=== PATIENT | female | born 1955 | race Caucasian/White ===

== ENCOUNTER → 2017-01-06 | Outpatient (CLI) | payer OTHER | END | disposition home or self-care (01) | LOC: LABWHC1 16:12 | PROVIDERS: ATTEND Internal Medicine Endocrinology, Diabetes & Metabolism | DX: E03.9 Hypothyroidism, unspecified (principal) | CPT/HCPCS: 36415; 82043; 82306; 84443 ==

== ENCOUNTER → 2017-01-18 | Outpatient (CLI) | payer OTHER ==
--- NOTE | 2017-01-18 07:57 | US ---
EXAMINATION TYPE: US abdomen complete DATE OF EXAM: 01/18/2017 7:41 AM COMPARISON: None. CLINICAL HISTORY: 61-year-old female R10.9 Abd Pain. Complaining of epigastric pain radiating to ches t; GERD; hiatal Hernia TECHNIQUE: Multiple sonographic images of the abdomen were obtained. FINDINGS: Liver Length: 13.2 cm Gallbladder Wall: 0.2 cm CBD: 0.4 cm Spleen: 10.8 cm Right Kidney: 9.8 x 5.4 x 4.7 cm Left Kidney: 10.1 x 5.1 x 6.5 cm Pancreas: No gross abnormality. Liver: Normal size without any focal lesion seen. There is slight increased echogenicity. Also, ther e is a 4 mm echogenic focus within the left hepatic lobe that may represent a small calcified granulo ma. Gallbladder: No abnormal gallbladder distention, wall thickening, pericholecystic fluid, or shadowing calculi. Evidence for sonographic Castellanos's sign: No CBD: Within normal limits. Spleen: Within normal limits. Right Kidney: No hydronephrosis. Left Kidney: No hydronephrosis. Upper IVC: wnl Abd Aorta: wnl IMPRESSION: Slight increased echogenicity of the liver may reflect mild fatty infiltration. Correlate with LFTs, lipid profile, and patient risk factors. Otherwise, no specific abnormality seen.
== END | disposition home or self-care (01) ==
LOC: RADUSWWP 07:05
PROVIDERS: ATTEND Family Medicine
DX: R10.9 Unspecified abdominal pain (principal)
CPT/HCPCS: 76700

== ENCOUNTER → 2017-03-11 | Outpatient (CLI) | payer OTHER | END | disposition home or self-care (01) | LOC: LABWHC1 15:55 | PROVIDERS: ATTEND Internal Medicine Endocrinology, Diabetes & Metabolism | DX: E03.8 Other specified hypothyroidism (principal) | CPT/HCPCS: 36415; 84443 ==

== ENCOUNTER → 2017-09-06 | Outpatient (CLI) | payer OTHER | END | disposition home or self-care (01) | LOC: LABWHC1 16:34 | PROVIDERS: ATTEND Internal Medicine Endocrinology, Diabetes & Metabolism | DX: E03.8 Other specified hypothyroidism (principal) | CPT/HCPCS: 36415; 84443 ==

== ENCOUNTER → 2017-09-09 | Outpatient (CLI) | payer OTHER ==
[2017-09-09 14:39] LABS: CH 31.2; CHCM 33.8; HDW 2.41; HGB 13.9 gm/dL (11.4-16.0); MCH 30.6 pg (25.0-35.0); MCV 92.7 fL (80.0-100.0); Mean Platelet Volume 7.7; RBC 4.53 m/uL (3.80-5.40); RDW 13.7 % (11.5-15.5); WBC 4.8 k/uL (3.8-10.6)
[2017-09-09 20:12] LABS: Prolactin 5.2 ng/mL (2.8-29.2)
[2017-09-09 22:43] LABS: ACTH 19.5 pg/mL (0.00-45.99)
== END | disposition home or self-care (01) ==
LOC: LABWHC1 14:17
PROVIDERS: ATTEND Internal Medicine Endocrinology, Diabetes & Metabolism
DX: E03.8 Other specified hypothyroidism (principal); E55.9 Vitamin D deficiency, unspecified; R53.83 Other fatigue
CPT/HCPCS: 36415; 82024; 82306; 82533; 82607; 84146; 84443; 85027

== ENCOUNTER → 2017-12-01 | Outpatient (CLI) | payer BC ==
[2017-12-01 16:49] LABS: HCT 39.9 % (34.0-46.0); HGB 13.3 gm/dL (11.4-16.0); MCH 29.8 pg (25.0-35.0); MCHC 33.2 g/dL (31.0-37.0); MCV 89.8 fL (80.0-100.0); Platelet Count 385 k/uL (150-450); RBC 4.44 m/uL (3.80-5.40); RDW 12.6 % (11.5-15.5); WBC 6.8 k/uL (3.8-10.6)
[2017-12-02 01:34] LABS: Vitamin D 25 Hydroxy 33.8 ng/mL (30.0-100.0)
[2017-12-02 02:34] LABS: ACTH 15.2 pg/mL (0.00-45.99)
== END | disposition home or self-care (01) ==
LOC: LABWHC1 16:23
PROVIDERS: ATTEND Internal Medicine Endocrinology, Diabetes & Metabolism
DX: E03.8 Other specified hypothyroidism (principal); R53.83 Other fatigue; E55.9 Vitamin D deficiency, unspecified
CPT/HCPCS: 36415; 82024; 82306; 82533; 82607; 84146; 84443; 85027

== ENCOUNTER → 2018-06-10 | Outpatient (CLI) | payer BC ==
[2018-06-10 10:39] LABS: Basophils # (A) 0.1 k/uL (0-0.2); Basophils % (A) 1 %; Eosinophils # (A) 0.1 k/uL (0-0.7); Eosinophils % (A) 2 %; HCT 40.9 % (34.0-46.0); HGB 13.7 gm/dL (11.4-16.0); Lymphocytes # (A) 1.1 k/uL (1.0-4.8); Lymphocytes % (A) 30 %; MCH 30.5 pg (25.0-35.0); MCHC 33.6 g/dL (31.0-37.0); MCV 90.7 fL (80.0-100.0); Mean Platelet Volume 7.1; Monocytes # (A) 0.3 k/uL (0-1.0); Monocytes % (A) 8 %; Neutrophils # (A) 2.2 k/uL (1.3-7.7); Neutrophils % (A) 57 %; Platelet Count 250 k/uL (150-450); RBC 4.51 m/uL (3.80-5.40); RDW 12.6 % (11.5-15.5); WBC 3.9 k/uL (3.8-10.6)
[2018-06-10 10:58] LABS: ALT 26 U/L (9-52); AST 18 U/L (14-36); Albumin 4.1 g/dL (3.5-5.0); Alkaline Phosphatase 64 U/L (38-126); Anion Gap 6 mmol/L; Blood Urea Nitrogen 19 mg/dL (7-17); Calcium 9.6 mg/dL (8.4-10.2); Carbon Dioxide 28 mmol/L (22-30); Chloride 108 mmol/L (98-107); Cholesterol 217 mg/dL (<200); Glucose 86 mg/dL (74-99); HDL Cholesterol 74 mg/dL (40-60); LDL Cholesterol,Calculated 129 mg/dL (0-99); Potassium 4.3 mmol/L (3.5-5.1); Sodium 142 mmol/L (137-145); Total Bilirubin 0.4 mg/dL (0.2-1.3); Total Protein 6.5 g/dL (6.3-8.2); Triglycerides 72 mg/dL (<150)
[2018-06-10 11:13] LABS: T4, Free (Free Thyroxine) 1.36 ng/dL (0.78-2.19)
[2018-06-12 23:15] LABS: Testosterone, Free, LC/MS/MS 0.4 pg/mL (0.2-5.0)
== END | disposition home or self-care (01) ==
LOC: LABWHC1 10:14
PROVIDERS: ATTEND Internal Medicine Endocrinology, Diabetes & Metabolism
DX: Z00.00 Encounter for general adult medical examination without abnormal findings (principal); Z11.59 Encounter for screening for other viral diseases; E03.8 Other specified hypothyroidism; E89.41 Symptomatic postprocedural ovarian failure
CPT/HCPCS: 36415; 80053; 80061; 82040; 82672; 84270; 84403; 84439; 84443; 85025; 86803

== ENCOUNTER → 2018-12-13 | Outpatient (CLI) | payer BC | END | disposition home or self-care (01) | LOC: LABWHC1 15:15 | PROVIDERS: ATTEND Internal Medicine Endocrinology, Diabetes & Metabolism | DX: E55.9 Vitamin D deficiency, unspecified (principal); E03.8 Other specified hypothyroidism | CPT/HCPCS: 36415; 82306; 84443 ==

== ENCOUNTER → 2019-01-27 | Outpatient (CLI) | payer BC | END | disposition home or self-care (01) | LOC: LABWHC1 16:34 | PROVIDERS: ATTEND Internal Medicine Endocrinology, Diabetes & Metabolism | DX: E03.8 Other specified hypothyroidism (principal); E55.9 Vitamin D deficiency, unspecified | CPT/HCPCS: 36415; 82306; 84443 ==

== ENCOUNTER → 2019-06-23 | Outpatient (CLI) | payer BC ==
--- NOTE | 2019-06-27 14:13 | MM ---
Reason for exam: screening (asymptomatic). Last mammogram was performed 2 years and 8 months ago. History: Patient is postmenopausal. Family history of premenopausal breast cancer in grandmother and premenopausal breast cancer in aunt at age 35. Benign excisional biopsy of the left breast, 1992. MG Screening Mammo w CAD Bilateral CC and MLO view(s) were taken. Prior study comparison: October 20, 2016, bilateral MG screening mammo w CAD. July 02, 2014, bilateral MG screening mammo w CAD. The breast tissue is heterogeneously dense. This may lower the sensitivity of mammography. No significant new finding when compared with prior studies. ASSESSMENT: Benign, BI-RAD 2 RECOMMENDATION: Routine screening mammogram of both breasts in 1 year.
== END | disposition home or self-care (01) ==
LOC: RADMAMWWP 12:09
PROVIDERS: ATTEND Family Medicine
DX: Z12.31 Encounter for screening mammogram for malignant neoplasm of breast (principal)
CPT/HCPCS: 77067

== ENCOUNTER → 2019-10-06 | Outpatient (CLI) | payer OTHER, BC ==
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
== END | disposition home or self-care (01) ==
LOC: RADCTMAIN 14:26
PROVIDERS: ATTEND Orthopaedic Surgery
DX: M16.12 Unilateral primary osteoarthritis, left hip (principal); M16.4 Bilateral post-traumatic osteoarthritis of hip
CPT/HCPCS: 72192

== ENCOUNTER → 2020-12-18 | Outpatient (CLI) | payer BC ==
[2020-12-18 12:05] LABS: Basophils # (A) 0.1 k/uL (0-0.2); Basophils % (A) 2 %; Eosinophils # (A) 0.1 k/uL (0-0.7); Eosinophils % (A) 3 %; HCT 40.6 % (34.0-46.0); HGB 13.9 gm/dL (11.4-16.0); Lymphocytes # (A) 1.1 k/uL (1.0-4.8); Lymphocytes % (A) 25 %; MCH 29.8 pg (25.0-35.0); MCHC 34.2 g/dL (31.0-37.0); Mean Platelet Volume 7.1; Monocytes # (A) 0.4 k/uL (0-1.0); Monocytes % (A) 9 %; Neutrophils # (A) 2.5 k/uL (1.3-7.7); Neutrophils % (A) 59 %; Platelet Count 251 k/uL (150-450); RBC 4.66 m/uL (3.80-5.40); RDW 13.4 % (11.5-15.5); WBC 4.3 k/uL (3.8-10.6)
[2020-12-18 22:50] LABS: African American GFR (CKD) 90.9 (60.0-200.0); Albumin 4.4 g/dL (3.80-4.90); Albumin/Globulin Ratio 2.59 (1.60-3.17); Anion Gap 7.6 mmol/L (4.00-12.00); BUN/Creat Ratio 23.75 Ratio (12.00-20.00); Calcium 9.7 mg/dL (8.7-10.3); Carbon Dioxide 27.4 mmol/L (21.6-31.8); Chol/HDL Ratio 3.17; Globulin 1.7 g/dL (1.6-3.3); LDL Cholesterol,Calculated 120.2 mg/dL (0.0-131.0); Non-African American GFR(CKD) 78.5 (60.0-200.0); Potassium 4.5 mmol/L (3.5-5.5); Total Bilirubin 0.5 mg/dL (0.3-1.2); Total Protein 6.1 g/dL (6.2-8.2); VLDL Calculation 16.8 mg/dL (5.00-40.00)
[2020-12-18 22:56] LABS: T4, Free (Free Thyroxine) 1.4 ng/dL (0.80-1.80)
== END | disposition home or self-care (01) ==
LOC: LABWHC1 10:52
PROVIDERS: ATTEND Nurse Practitioner Adult Health
DX: Z00.00 Encounter for general adult medical examination without abnormal findings (principal); Z11.59 Encounter for screening for other viral diseases; E03.9 Hypothyroidism, unspecified
CPT/HCPCS: 36415; 80053; 80061; 84439; 84443; 84481; 85025; 86803

== ENCOUNTER → 2021-01-29 | Outpatient (CLI) | payer BC ==
[2021-01-30 01:00] LABS: T4, Free (Free Thyroxine) 1.4 ng/dL (0.80-1.80)
== END | disposition home or self-care (01) ==
LOC: LABWHC1 13:31
PROVIDERS: ATTEND Family Medicine
DX: E03.9 Hypothyroidism, unspecified (principal)
CPT/HCPCS: 36415; 84439; 84443; 84481

== ENCOUNTER → 2021-10-08 | Outpatient (CLI) | payer BC ==
[2021-10-08 12:47] LABS: HCT 38.8 % (34.0-46.0); HGB 13.1 gm/dL (11.4-16.0); MCH 30.9 pg (25.0-35.0); MCHC 33.9 g/dL (31.0-37.0); MCV 91.3 fL (80.0-100.0); Mean Platelet Volume 7.8; Platelet Count 257 k/uL (150-450); RBC 4.25 m/uL (3.80-5.40); RDW 12.8 % (11.5-15.5); WBC 4.5 k/uL (3.8-10.6)
== END | disposition home or self-care (01) ==
LOC: LABWHC1 11:42
PROVIDERS: ATTEND Surgery
DX: Z01.812 Encounter for preprocedural laboratory examination (principal); K40.90 Unilateral inguinal hernia, without obstruction or gangrene, not specified as recurrent
CPT/HCPCS: 36415; 85027

== ENCOUNTER 2021-10-13 12:10 | Day surgery (SDC) | payer BC ==
[2021-10-08 15:22] VITALS: BMI 21.6
[~2021-10-13 12:10] MED LIST: ACETAMINOPHEN TAB 500 MG TAB PO PRN; DEXAMETHASONE SOD PHOSPHATE 4 MG/ML 1 ML VIAL IV ONE; HEPARIN SODIUM,PORCINE/PF 5,000 UNIT/0.5 ML SYRINGE SQ PRN; HYDROmorphone 0.5 MG/0.5 ML SYRINGE IVP PRN; LACTATED RINGERS 1,000 ML IV SCH; MIDAZOLAM 2 MG/2 ML VIAL IV PRN; SCOPOLAMINE 1.5MG/72HR PATCH TRANSDERM ONE
[2021-10-13] MEDS ORDERED: LIDOCAINE 1% (10MG/ML) FOR IV START INTRADERMA ONE (13:40)
[2021-10-13] MEDS: ONDANSETRON 4 MG/2 ML VIAL IVP ONE ×2 (13:44→18:30)
[2021-10-13 13:59] LABS: Glucose,Whole Blood 67 mg/dL (75-99)
[2021-10-13 14:43] LABS: Glucose,Whole Blood 76 mg/dL (75-99)
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
[2021-10-13] MEDS ORDERED: MIDAZOLAM 2 MG/2 ML VIAL IV ONE (15:20)
[2021-10-13] MEDS ORDERED: KETOROLAC 15 MG/ML 1 ML VIAL ONE (15:45)
[2021-10-13] MEDS ORDERED: fentaNYL (PF) 50 MCG/ML 2 ML AMP ONE (15:45)
[2021-10-13] MEDS ORDERED: GLYCOPYRROLATE 0.2 MG/ML 2 ML VIAL ONE (15:45)
[2021-10-13] MEDS ORDERED: ROCURONIUM 10 MG/ML (5 ML VIAL) IV ONE (15:45)
[2021-10-13] MEDS ORDERED: NEOSTIGMINE 1 MG/ML 10 ML VIAL ONE (15:45)
[2021-10-13] MEDS ORDERED: HYDROmorphone (PF) 1 MG/ML ONE (15:45)
[2021-10-13] MEDS ORDERED: MIDAZOLAM 2 MG/2 ML VIAL ONE (15:45)
[2021-10-13] MEDS ORDERED: LIDOCAINE 1% INJ 10MG/ML (20 ML MDV) ONE (15:45)
[2021-10-13] MEDS ORDERED: SUCCINYLCHOLINE CHLORIDE 100 MG/5 ML SYR IV ONE (15:45)
[2021-10-13] MEDS ORDERED: PROPOFOL 10 MG/ML 20 ML VIAL IV ONE (15:45)
[2021-10-13] MEDS ORDERED: BUPIVACAIN-EPI 0.25%-1:200,000 30 ML VIAL SQ ONE ×2 (16:14)
[2021-10-13] MEDS ORDERED: LACTATED RINGERS 1,000 ML IV ONE (16:30)
--- NOTE | 2021-10-13 17:10 | P.OP ---
Date of Procedure: 10/13/21 Procedure(s) Performed: PREOPERATIVE DIAGNOSIS: Incarcerated left groin hernia POSTOPERATIVE DIAGNOSIS: Incarcerated left direct inguinal hernia PROCEDURE: Da Dpahney assisted laparoscopic repair left inguinal hernia with mesh SURGEON: Dr. Comer ANESTHESIA: General OPERATIVE PROCEDURE DETAILS: Patient was placed in the operating table in the supine position. The patient was placed under general anesthesia. The abdomen was prepped and draped in usual sterile fashion. A small curvilinear supraumbilical incision was made. The fascia was retracted anteriorly with Maikel forceps. The Veress needle was inserted. The saline drop test was normal. Insufflation took place to 15 mmHg. An 8 mm trocar was placed into the peritoneal cavity. 2 additional 8 mm trochars were placed in the right upper quadrant and left upper quadrant under visualization. The robotic arms were then brought in and docked into place. The fenestrated bipolar was used in the left arm and the laparoscopic harish was utilized in the right arm. A 30 8 mm scope was used in the up position. The peritoneal cavity was inspected. The patient had no hernia on the right-hand side. On the left-hand side there was a defect in the direct space. The peritoneum was incised in a horizontal fashion cephalad to the internal inguinal ring. Following that careful dissection of the preperitoneal space took place. This took place using both electrocautery, sharp dissection but primarily blunt dissection. Visualization of the pubic tubercle and Pio's ligament took place medially. Full dissection took place laterally as well. The hernia sac was fully dissected. The defect was a low- lying medial 1 cm direct inguinal hernia. Once we had adequate space the large Bard 3-D mid mesh was advanced into the preperitoneal space and flattened out appropriately to cover all potential hernia sites. A short running 20V lock sut ure was used to secure the mesh medial to the defect. The peritoneal defect was then closed using a absorbable 2-0 VLok suture. The hernia sac was incorporated into the peritoneal closure to help prevent future recurrence. The pneumoperitoneum was then evacuated. The skin of all 3 sites was closed using a 4-0 Monocryl stitch. Skin glue was then applied.ht HERNIA CHARACTERISTICS: Length: 1 cm Width: 1 cm Type: Incarcerated direct TYPE OF MESH USED: Large Bard 3-D mid LOCATION OF MESH: Preperitoneal FIXATION: 20V lock suture DISPOSITION: Stable to recovery room
[2021-10-13 17:19] VITALS: TEMP 96.8
[2021-10-13] MEDS ORDERED: ACETAMINOPHEN TAB 325 MG TAB PO SCH (18:00)
[2021-10-13 18:18] VITALS: RESP 16
[2021-10-13] MEDS ORDERED: ONDANSETRON 4 MG/2 ML VIAL ONE (18:29)
[2021-10-13 18:46] VITALS: BP 138/83; PULSE 80
[2021-10-13] MEDS ORDERED: IBUPROFEN 600 MG TAB PO SCH (20:15)
== END 2021-10-13 19:04 | disposition home or self-care (01) ==
LOC: OR 12:10
PROVIDERS: ATTEND Surgery
DX: K40.90 Unilateral inguinal hernia, without obstruction or gangrene, not specified as recurrent (principal); K21.9 Gastro-esophageal reflux disease without esophagitis; K58.9 Irritable bowel syndrome, unspecified; M19.90 Unspecified osteoarthritis, unspecified site; Z87.19 Personal history of other diseases of the digestive system; Z87.891 Personal history of nicotine dependence; Z88.0 Allergy status to penicillin; Z88.2 Allergy status to sulfonamides; Z91.040 Latex allergy status
CPT/HCPCS: 49650; C1781; J2250; J1100; J2710; J0690; J2405; J2001; J3010; J1170; J1885; J0330; J2704; J1644

== ENCOUNTER 2022-02-04 05:43 | Inpatient (IN) | payer BC, MEDICARE ==
[2022-02-04] MEDS ORDERED: SODIUM CHLORIDE 0.9% 1,000 ML IV STA (06:08)
[2022-02-04] MEDS ORDERED: HYDROmorphone 0.5 MG/0.5 ML SYRINGE IVP STA ×2 (06:09→07:54)
[2022-02-04] MEDS ORDERED: ONDANSETRON 4 MG/2 ML VIAL IVP STA (06:09)
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
[2022-02-04 06:19] LABS: Basophils # (A) 0.1 k/uL (0-0.2); Basophils % (A) 0 %; Eosinophils # (A) 0.1 k/uL (0-0.7); Eosinophils % (A) 1 %; HCT 40.6 % (34.0-46.0); HGB 13.1 gm/dL (11.4-16.0); Lymphocytes # (A) 1.5 k/uL (1.0-4.8); Lymphocytes % (A) 6 %; MCH 30.2 pg (25.0-35.0); MCHC 32.4 g/dL (31.0-37.0); MCV 93.3 fL (80.0-100.0); Mean Platelet Volume 7.1; Monocytes % (A) 4 %; Neutrophils # (A) 21.8 k/uL (1.3-7.7); Neutrophils % (A) 89 %; Platelet Count 666 k/uL (150-450); RBC 4.35 m/uL (3.80-5.40); RDW 14.4 % (11.5-15.5); WBC 24.6 k/uL (3.8-10.6)
[2022-02-04 06:36] LABS: Partial Thromboplastin Time 26.6 sec (22.0-30.0); Prothrombin Time 11.2 sec (9.0-12.0)
[2022-02-04 06:41] LABS: ALT 13 U/L (4-34); AST 27 U/L (14-36); African American GFR (CKD) >90 (>60 ml/min/1.73 sqM); Albumin 4.1 g/dL (3.5-5.0); Alkaline Phosphatase 98 U/L (38-126); Anion Gap 12 mmol/L; Blood Urea Nitrogen 20 mg/dL (7-17); Calcium 9.9 mg/dL (8.4-10.2); Carbon Dioxide 22 mmol/L (22-30); Chloride 102 mmol/L (98-107); Glucose 148 mg/dL (74-99); Magnesium 1.5 mg/dL (1.6-2.3); Non-African American GFR(CKD) >90 (>60 ml/min/1.73 sqM); Potassium 4.9 mmol/L (3.5-5.1); Sodium 136 mmol/L (137-145); Total Bilirubin 0.8 mg/dL (0.2-1.3); Total Protein 7.6 g/dL (6.3-8.2)
[2022-02-04] MEDS ORDERED: MAGNESIUM OXIDE 400 MG TAB PO STA (07:18)
--- NOTE | 2022-02-04 08:01 | XR ---
EXAMINATION TYPE: XR chest 2V DATE OF EXAM: 02/04/2022 COMPARISON: X-ray dated 01/10/2012 HISTORY: Chest pain TECHNIQUE: Frontal and lateral views of the chest are obtained. FINDINGS: Newly seen heterogeneous patchy opacity at the lateral aspect of the left lower lung zone with surrou nding atelectasis, underlying infection/pneumonia can't be excluded, please correlate clinically. Fol low-up to resolution is advised. Minimal reticulations are seen in the right lung base. Clear remainder of the lungs. No sizable pleur al effusion or definite pneumothorax. No gross cardiomegaly. Aortic atherosclerotic calcifications. O steopenia. IMPRESSION: Suspected left lower lung zone pneumonia versus consolidation/collapse, please correlate clinically. Follow-up to resolution is advised.
--- NOTE | 2022-02-04 08:01 | CT ---
EXAMINATION TYPE: CT chest angio for PE DATE OF EXAM: 02/04/2022 COMPARISON: None HISTORY: Chest pain, SOB CT DLP: 196.4 mGycm CONTRAST: CT chest with contrast and 3D reconstruction with MIP imaging is performed with IV Contrast, patient injected with 64 mL of Isovue 370. Contrast-enhanced CT of the chest was performed through the course of the pulmonary arteries with markie g and mediastinal window settings submitted. 3D reconstruction with MIP imaging was also performed. PULMONARY ARTERIES: The pulmonary arteries and their major tributaries are patent. I do not see sly dence for sizable filling defect to suggest pulmonary embolic process. LUNGS: There is airspace consolidation in the region of the lingula with additional patchy infiltrate noted at the lung bases. Small left-sided pleural effusion identified. Scattered areas of groundglas s infiltrate upper lobes. MEDIASTINUM: Thoracic aorta is of normal caliber,however, evaluation is limited given timing of the contrast bolus. If there is concern for thoracic aortic pathology consider JOSHUA. Correlate clinicall y . The heart is not enlarged. No evidence for mediastinal mass. No mediastinal lymph nodes greater than 1cm. HILAR STRUCTURES: No evidence for mass. No hilar lymph nodes greater than 1 cm. UPPER ABDOMEN: No significant abnormality is seen. IMPRESSION: 1. No evidence for Pulmonary embolism at this time. 2. Multifocal pneumonia
[2022-02-04] MEDS ORDERED: AZITHROMYCIN 500 MG in SODIUM CHLORIDE 0.9% 250 ML IVPB STA (08:27)
[2022-02-04] MEDS ORDERED: PNEUMONIA PROTOCOL UTILIZED 1 EACH MISC PO PRN (08:27)
[2022-02-04] MEDS ORDERED: ACETAMINOPHEN TAB 325 MG TAB PO PRN (08:27)
[2022-02-04] MEDS ORDERED: NALOXONE 0.4 MG/ML 1 ML VIAL IV PRN (08:27)
[2022-02-04] MEDS ORDERED: MELATONIN 3 MG TABLET PO PRN (08:27)
[2022-02-04] MEDS ORDERED: AZITHROMYCIN 500 MG TAB PO SCH (09:00)
[2022-02-04] MEDS: oxyCODONE-APAP 5-325MG 1 EACH TAB PO PRN ×2 (09:58→13:49)
[2022-02-04] MEDS: ENOXAPARIN 40 MG/0.4 ML SYRINGE SQ SCH (10:37)
[2022-02-04] MEDS ORDERED: diazePAM 5 MG TAB PO STA (12:12)
[2022-02-04] MEDS: HYDROmorphone 0.5 MG/0.5 ML SYRINGE IVP PRN ×2 (15:13→21:49)
[2022-02-04] MEDS: IPRATROPIUM-ALBUTEROL 3 ML NEB INHALATION PRN ×2 (16:21→21:32)
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
[2022-02-04] MEDS: MAGNESIUM SULFATE-D5W PMX 1 GM in DEXTROSE/WATER 1 100ML.BAG IVPB SCH ×3 (17:13→19:33)
[2022-02-04] MEDS: AMITRIPTYLINE HCL 25 MG TAB PO SCH (19:34)
[2022-02-04] MEDS: methylPREDNISolone SOD SUCCI 40 MG/ML 1 ML VIAL IV SCH (19:34)
[2022-02-04] MEDS: ALPRAZolam 0.5 MG TAB PO SCH (19:34)
[2022-02-04] MEDS: FLUTICASONE 110 MCG INHALER INHALATION SCH (21:32)
[2022-02-05] MEDS: HYDROmorphone 0.5 MG/0.5 ML SYRINGE IVP PRN ×4 (02:28→21:07)
[2022-02-05] MEDS: LEVOTHYROXINE 88 MCG TAB PO SCH (06:19)
[2022-02-05] MEDS: PANTOPRAZOLE 40 MG TABLET PO SCH (06:19)
--- NOTE | 2022-02-05 08:08 | XR ---
EXAMINATION TYPE: XR chest 1V portable DATE OF EXAM: 02/05/2022 COMPARISON: X-ray dated 02/04/2022 HISTORY: Cough TECHNIQUE: Single frontal view of the chest is obtained. FINDINGS: COPD changes, appreciated previously. Moderate left-sided pleural effusion with adjacent subsegmental pulmonary atelectasis. Associated infection can't be excluded. Minimal infiltration in the lateral aspect of the right lung base. No right-sided pleural effusion. C ardiac size cannot be properly assessed. Aortic atherosclerotic calcification. Mild dextro scoliosis in the thoracic spine. IMPRESSION: Moderate left-sided pleural effusion with adjacent subsegmental atelectasis versus infection, please correlate clinically. Background of COPD changes.
[2022-02-05] MEDS: FLUTICASONE 110 MCG INHALER INHALATION SCH ×2 (08:33→19:50)
[2022-02-05] MEDS: IPRATROPIUM-ALBUTEROL 3 ML NEB INHALATION PRN ×4 (08:33→19:50)
[2022-02-05] MEDS: AZITHROMYCIN 500 MG TAB PO SCH (08:35)
[2022-02-05] MEDS: ENOXAPARIN 40 MG/0.4 ML SYRINGE SQ SCH (08:35)
[2022-02-05] MEDS: methylPREDNISolone SOD SUCCI 40 MG/ML 1 ML VIAL IV SCH ×2 (08:35→21:07)
[2022-02-05 09:02] LABS: African American GFR (CKD) 106.1 (60.0-200.0); Albumin 3.7 g/dL (3.8-4.9); Albumin/Globulin Ratio 1.37 (1.60-3.17); Anion Gap 12.7 mmol/L (10.00-18.00); Blood Urea Nitrogen 16.1 mg/dL (9.0-27.0); Calcium 9.8 mg/dL (8.7-10.3); Carbon Dioxide 22.3 mmol/L (20.0-27.5); Globulin 2.7 g/dL (1.6-3.3); Magnesium 2.2 mg/dL (1.5-2.4); Non-African American GFR(CKD) 91.6 (60.0-200.0); Potassium 4.5 mmol/L (3.5-5.5); Total Bilirubin 0.3 mg/dL (0.30-1.20); Total Protein 6.4 g/dL (6.2-8.2)
[2022-02-05 09:41] LABS: HGB 11.1 g/dL (12.0-15.0); MCH 29.8 pg (27.0-32.0); MCHC 31.7 g/dL (32.0-37.0); MCV 94.1 fL (80.0-97.0); Mean Platelet Volume 9.4 fL (9.5-12.2); NRBC Per 100 WBC 0 /100 WBCS (0.0-0.0); Platelet Count 481 X 10*3/uL (140-440); RBC 3.72 X 10*6/uL (4.10-5.20); RDW 14.2 % (11.5-14.5); WBC 30.64 X 10*3/uL (4.50-10.00)
[2022-02-05 11:10] LABS: Basophils # (A) 0.06 X 10*3/uL (0.00-0.10); Basophils % (A) 0.2 %; Eosinophils # (A) 0 X 10*3/uL (0.04-0.35); Eosinophils % (A) 0 %; Immature Grans, Automated 0.9 %; Lymphocytes # (A) 1.19 X 10*3/uL (0.90-5.00); Lymphocytes % (A) 3.9 %; Monocytes % (A) 6.5 %; Neutrophils # (A) 27.11 X 10*3/uL (1.80-7.70); Neutrophils % (A) 88.5 %
[2022-02-05 11:11] LABS: RBC Morphology NORMAL
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
[2022-02-05 12:24] VITALS: BMI 21.8
--- NOTE | 2022-02-05 17:51 | P.PN ---
Subjective Progress Note Date: 02/05/22 History of Presenting Illness: Patient is a very pleasant 66-year-old female with a past medical history of hypothyroidism, GERD, and recent infection with Covid pneumonia back in November 2021. Patient presented to the emergency department with a chief complaint of shortness of breath and cough. Patient reports full resolution of symptoms from previous Covid infection back in November and approximately 2 weeks ago began developing shortness of breath and cough. 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 Patient reports over the last 2 weeks her symptoms have significantly increased and worsened so she came to the emergency department for evaluation..Labs revealing leukocytosis with WBC count 24.6 with left shift, thrombocytosis with platelet count of 666. Elevated d-dimer at 0.74 with normal troponin at less than 0.012. ProBNP of 169. And hypomagnesemia with magnesium of 1.5. Chest x- ray revealing suspected left lower lobe pneumonia versus consolidation versus collapse. CTA showing no evidence for PE with multifocal pneumonia. EKG showing sinus tachycardia at 133 bpm with no noted T-wave or ST abnormalities. Covid PCR obtained and negative. Patient was admitted to our services with consultation to pulmonology. Physical exam: Patient seen and fully evaluated at bedside this morning. She reports improvement and rib pain and breathing. Patient remains slightly tachycardic with heart rate of 104. However patient remains afebrile with respirations even, regular, and unlabored on 2 L O2 with SpO2 96-98%. Patient denies having any headache, lightheadedness, dizziness, palpitations, nausea, vomiting, or any other complaints at this time. Repeat chest x-ray revealing moderate left-sided pleural effusion with adjacent subsegmental atelectasis versus infection and background of COPD changes. Vital signs reviewed and stable. General: Nontoxic, no distress and appears stated age. Derm: Skin warm and dry, normal coloration for ethnicity. Head: Atraumatic, normocephalic and symmetric. Eyes: EOMs intact, no lid lag, and anicteric sclera Mouth: no lip lesions, mucus membranes moist Cardiovascular: Tachycardic rate and regular rhythm with normal S1S2, no murmur, positive posterior tibial pulses bilaterally, and cap refill < 2 seconds. Lungs: Respirations even, regular, and unlabored on room air. Lungs diffuse rhonchi left lower lobe, otherwise diminished with with soft expiratory wheezes. Abdominal: soft, nontender to palpation, no guarding, no appreciable o rganomegaly Ext: ROM intact. No gross muscle atrophy, no edema, no contractures Neuro: Speech clear, face symmetrical and CN II-XII grossly intact with no noted focal neuro deficits Psych: Alert and oriented to person, place, time, and situation. Appropriate and pleasant affect. Assessment and Plan of Care: Multifocal pneumonia -Oxygenation to be administered and titrated as needed to maintain SPO2 equal to or greater than 92% -Telemetry monitoring. -Monitor Pulse-oximetry -Duonebs as needed for SOB and/or wheezing -Incentive Spirometry, encourage use 10-15 times hourly while awake -Steroids: Solu-Medrol -Antibiotics: Rocephin and azithromycin pending sputum cultures. -Sputum culture pending -Pulmonology following -Encourage oral hydration -Symptomatic care and pain management for rib pain. -Repeat x-ray revealed moderate left-sided pleural effusion with adjacent subsegmental atelectasis versus infection in background of COPD changes. Hypothyroidism Continue daily medication regimen with levothyroxine. GERD Continue daily medication regimen with Protonix. The patient is admitted with an anticipated greater than 2 midnight stay for evaluation of multifocal pneumonia CODE STATUS: Full code DVT prophylaxis: Lovenox Discussed with: Patient, patient's , and RN Anticipated discharge date: Clinical course to determine Anticipated discharge place: Home A total of 45 minutes was spent on the care of this complex patient more than 50% of the time was spent in counseling and care coordination. Objective - Vital Signs Vital signs: Vital Signs Temp 98.2 F 02/05/22 02:00 Pulse 106 H 02/05/22 02:00 Resp 18 02/05/22 02:00 BP 108/71 02/05/22 02:00 Pulse Ox 97 02/05/22 02:00 Intake & Output 02/04/22 02/05/22 02/05/22 18:59 06:59 18:59 Intake Total 360 Balance 360 Weight 59.421 kg Intake: Oral 360 Other: # Voids 4 - Labs CBC & Chem 7: 02/05/22 06:26 02/05/22 06:26 Labs: Microbiology - Last 24 Hours (Table) 02/04/22 17:00 Sputum Culture - Preliminary Sputum
[2022-02-05] MEDS: oxyCODONE-APAP 5-325MG 1 EACH TAB PO PRN ×2 (19:26→23:21)
[2022-02-05] MEDS: AMITRIPTYLINE HCL 25 MG TAB PO SCH (21:07)
[2022-02-05] MEDS: ALPRAZolam 0.5 MG TAB PO SCH (21:07)
[2022-02-06] MEDS: oxyCODONE-APAP 5-325MG 1 EACH TAB PO PRN ×5 (03:24→22:17)
[2022-02-06] MEDS: LEVOTHYROXINE 88 MCG TAB PO SCH (05:43)
[2022-02-06] MEDS: HYDROmorphone 0.5 MG/0.5 ML SYRINGE IVP PRN ×3 (08:48→23:54)
[2022-02-06] MEDS: FLUTICASONE 110 MCG INHALER INHALATION SCH ×2 (08:58→20:40)
[2022-02-06] MEDS: IPRATROPIUM-ALBUTEROL 3 ML NEB INHALATION PRN ×4 (08:58→20:40)
[2022-02-06] MEDS: PANTOPRAZOLE 40 MG TABLET PO SCH (08:59)
[2022-02-06] MEDS: AZITHROMYCIN 500 MG TAB PO SCH (08:59)
[2022-02-06] MEDS: methylPREDNISolone SOD SUCCI 40 MG/ML 1 ML VIAL IV SCH ×2 (09:00→22:16)
[2022-02-06] MEDS: ENOXAPARIN 40 MG/0.4 ML SYRINGE SQ SCH (09:00)
[2022-02-06 11:21] LABS: Basophils % (A) 0 %; Eosinophils % (A) 0 %; HCT 32.6 % (34.0-46.0); HGB 10.3 gm/dL (11.4-16.0); Lymphocytes # (A) 0.5 k/uL (1.0-4.8); Lymphocytes % (A) 3 %; MCH 29.6 pg (25.0-35.0); MCHC 31.7 g/dL (31.0-37.0); MCV 93.3 fL (80.0-100.0); Monocytes # (A) 0.7 k/uL (0-1.0); Monocytes % (A) 4 %; Neutrophils # (A) 15.1 k/uL (1.3-7.7); Neutrophils % (A) 92 %; Platelet Count 457 k/uL (150-450); RDW 14.2 % (11.5-15.5); WBC 16.5 k/uL (3.8-10.6)
--- NOTE | 2022-02-06 11:22 | P.PN ---
Subjective Progress Note Date: 02/06/22 Principal diagnosis: Community-acquired pneumonia This is a very pleasant 66-year-old female patient who follows with Dr. Bueno as her primary care provider. She has a history of hypothyroidism, anxiety, gastroesophageal reflux disease. She had tested positive for CoVID in November 2021. She is not vaccinated. She states she did have pneumonia according to her PCP and was treated with antibiotics and steroids. She's had ongoing issues with recurrent shortness of breath, cough and congestion. She felt that was mostly related to the CoVID infection. Yesterday she presented to the emergency with ongoing symptoms and increasing left-sided rib pain. Chest x-ray and CAT scan of the chest revealed evidence of a lingular pneumonia. Some residual effects of the COVID-19 pneumonia. Sputum culture pending. White count 30.6. Hemoglobin 11.1. Platelets 481. Lymphocytes 1.19. D-dimer 0.74. Sodium 136. Potassium 4.5. BUN 16. Creatinine 0.7. Glucose 138. Walter virus by PCR not detected. She's been initiated on ceftriaxone and azithromycin, DuoNeb inhalations, Flovent, IV Solu-Medrol. Lovenox for DVT prophylaxis. She is seen today in consultation on the regular medical floor. She is up ambulating in her room. Awake and alert in no acute distress. Maintaining good O2 saturation up to 100% on 2 L/m per nasal cannula. She's been afebrile. Hemodynamically stable. All of chest x-ray reveals a moderate left-sided pleural effusion with adjacent subsegmental atelectasis versus infection. Background changes of COPD. The patient is seen today 02/06/2022 in follow-up on the regular medical floor. She is currently sitting up in bed. Awake and alert in no acute distress. She is still having some ongoing issues with left-sided chest discomfort. She is requesting Dilaudid and Percocet on a regular basis. She is maintaining O2 saturations in the mid 90s on room air. No desaturations with activity. Blood cultures revealed no growth. Sputum cultures reveal no growth to date. No new labs today. She is continued on DuoNeb inhalations, IV Solu-Medrol, antibiotics in the form of ceftriaxone and azithromycin. Lovenox for DVT prophylaxis. Objective - Vital Signs Vital signs: Vital Signs Temp 97.8 F 02/06/22 07:29 Pulse 80 02/06/22 09:10 Resp 16 02/06/22 07:29 BP 112/63 02/06/22 07:29 Pulse Ox 96 02/06/22 10:28 Intake & Output 02/05/22 02/06/22 02/06/22 18:59 06:59 18:59 Weight 59.421 kg Other: # Voids 2 5 - Exam GENERAL EXAM: Alert, active, very pleasant 66-year-old female, on room air, comfortable in no apparent distress. HEAD: Normocephalic. EYES: Normal reaction of pupils, equal size. NOSE: Clear with pink turbinates. THROAT: No erythema or exudates. NECK: No masses, no JVD. CHEST: No chest wall deformity. LUNGS: Equal air entry with crackles in the left base. CVS: S1 and S2 normal with no audible murmur, regular rhythm. ABDOMEN: No hepatosplenomegaly, normal bowel sounds, no guarding or rigidity. SPINE: No scoliosis or deformity SKIN: No rashes CENTRAL NERVOUS SYSTEM: No focal deficits, tone is normal in all 4 extremities. EXTREMITIES: There is no peripheral edema. No clubbing, no cyanosis. Peripheral pulses are intact. - Labs CBC & Chem 7: 02/05/22 06:26 02/05/22 06:26 Labs: Microbiology - Last 24 Hours (Table) 02/05/22 02:57 Gram Stain - Preliminary Sputum Sputum Culture - Preliminary 02/04/22 09:15 Blood Culture - Preliminary Blood No Growth after 24 hours 02/04/22 09:00 Blood Culture - Preliminary Blood No Growth after 24 hours 02/04/22 17:00 Gram Stain - Preliminary Sputum Sputum Culture - Preliminary Assessment and Plan Assessment: 1 Acute community-acquired pneumonia involving the lingula 2 Left-sided chest wall pain secondary to above 3 Recent COVID-19 infection in November 2021, negative this admission 4 Hypothyroidism 5 Anxiety 6 Gastroesophageal reflux disease Plan: The patient was seen and evaluated Stable and on room air Sputum culture pending Continue azithromycin and ceftriaxone for now Continue bronchodilators Continue incentive spirometer Follow-up in the office 1-2 weeks post discharge I have personally seen and examined the patient, performed the documentation and the assessment and plan as written. Number of minutes spent on the visit: 10.
[2022-02-06 11:33] LABS: African American GFR (CKD) >90 (>60 ml/min/1.73 sqM); Anion Gap 8 mmol/L; Blood Urea Nitrogen 19 mg/dL (7-17); Calcium 9.6 mg/dL (8.4-10.2); Carbon Dioxide 25 mmol/L (22-30); Chloride 104 mmol/L (98-107); Glucose 128 mg/dL (74-99); Non-African American GFR(CKD) >90 (>60 ml/min/1.73 sqM); Potassium 4.6 mmol/L (3.5-5.1); Sodium 137 mmol/L (137-145)
--- NOTE | 2022-02-06 12:48 | P.PN ---
Subjective Progress Note Date: 02/06/22 Principal diagnosis: Shortness of breath Patient currently feeling better however she continues to have left-sided chest pain especially with deep breathing. Cough has been minimal. No fevers or chills. Objective - Vital Signs Vital signs: Vital Signs Temp 97.8 F 02/06/22 07:29 Pulse 76 02/06/22 12:23 Resp 16 02/06/22 07:29 BP 112/63 02/06/22 07:29 Pulse Ox 96 02/06/22 10:28 Intake & Output 02/05/22 02/06/22 02/06/22 18:59 06:59 18:59 Weight 59.421 kg Other: # Voids 2 5 - Exam Constitutional: No acute distress, conversant, pleasant Eyes:Anicteric sclerae, moist conjunctiva, no lid-lag, PERRLA, ENMT: Oropharynx clear, no erythema, exudates Neck: Supple, FROM, no masses, or JVD, No carotid bruits, No thyromegaly Lungs: Clear to auscultation, Clear to percussion, Normal respiratory effort, no accessory muscle use Cardiovascular: Heart regular in rate and rhythm, No murmurs, gallops, or rubs, No peripheral edema Abdominal: Soft, Nontender, no guarding, rebound or rigidity, Normoactive bowel sounds, No hepatomegaly, No splenomegaly, No palpable mass Skin: Normal temperature, tone, texture, turgor, no induration, No subcutaneous nodules, No rash, lesions, No ulcers Extremities: No digital cyanosis, No clubbing, Pedal pulses intact and symmetrical, Radial pulses intact and symmetrical, No calf tenderness Psychiatric: Alert and oriented to person, place and time, appropriate affect, intact judgement Neuro: Muscles Strength 5/5 in all 4 extremities, Sensation to light touch grossly present throughout, Cranial nerves II-XII grossly intact, no focal sensory deficits - Labs CBC & Chem 7: 02/06/22 11:09 02/06/22 11:09 Labs: Abnormal Lab Results - Last 24 Hours (Table) 02/06/22 02/06/22 Range/Units 11: 11:09 WBC 16.5 H (3.8-10.6) k/uL RBC 3.50 L (3.80-5.40) m/uL Hgb 10.3 L (11.4-16.0) gm/dL Hct 32.6 L (34.0-46.0) % Plt Count 457 H (150-450) k/uL Neutrophils # 15.1 H (1.3-7.7) k/uL Lymphocytes # 0.5 L (1.0-4.8) k/uL BUN 19 H (7-17) mg/dL Glucose 128 H (74-99) mg/dL Microbiology - Last 24 Hours (Table) 02/04/22 09:15 Blood Culture - Preliminary Blood No Growth after 48 hours 02/04/22 09:00 Blood Culture - Preliminary Blood No Growth after 48 hours 02/05/22 02:57 Gram Stain - Preliminary Sputum Sputum Culture - Preliminary 02/04/22 17:00 Gram Stain - Preliminary Sputum Sputum Culture - Preliminary Assessment and Plan Plan: Multifocal pneumonia with left-sided pleural effusion -Was on oxygen earlier now off. -Telemetry monitoring. -Monitor Pulse-oximetry -Duonebs as needed for SOB and/or wheezing -Incentive Spirometry, encourage use 10-15 times hourly while awake -Steroids: Solu-Medrol -Antibiotics: Rocephin and azithromycin pending sputum cultures. -Sputum culture -Pulmonology on. -Encourage oral hydration -Symptomatic care and pain management for rib pain. -Repeat x-ray tomorrow morning -IR thoracentesis Hypothyroidism Continue daily medication regimen with levothyroxine. GERD Continue daily medication regimen with Protonix. CODE STATUS: Full code DVT prophylaxis: Lovenox Discussed with: Patient, patient's , and RN Anticipated discharge date: Clinical course to determine Anticipated discharge place: Home
--- NOTE | 2022-02-06 13:33 | US ---
EXAMINATION TYPE: US chest DATE OF EXAM: 02/06/2022 COMPARISON: CT CLINICAL HISTORY: pleural effusion . Pleural effusion. TECHNIQUE: Targeted ultrasound of the posterior lower bilateral hemithoraces EXAM MEASUREMENTS: Right Pleural Effusion pocket size: No fluid seen. Left Pleural Effusion pocket size: Complex fluid with septations and debris seen throughout measur ing 8.7 cm. Tissue seen anteriorly within the pocket 2.5 cm. Left skin surface to fluid distance: 1.8 cm Right side not marked for possible thoracentesis outside the dept. Left side not marked for possible thoracentesis outside the dept. Pulmonologists are able to review the images in the patient?s EMR. IMPRESSIONS: Multilocular effusion, consider empyema
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
[2022-02-06] MEDS: ALPRAZolam 0.5 MG TAB PO SCH (22:17)
[2022-02-06] MEDS: AMITRIPTYLINE HCL 25 MG TAB PO SCH (22:18)
[2022-02-07] MEDS: oxyCODONE-APAP 5-325MG 1 EACH TAB PO PRN ×4 (02:27→19:48)
[2022-02-07] MEDS: LEVOTHYROXINE 88 MCG TAB PO SCH (06:21)
[2022-02-07] MEDS: IPRATROPIUM-ALBUTEROL 3 ML NEB INHALATION PRN ×2 (07:13→18:35)
[2022-02-07] MEDS: FLUTICASONE 110 MCG INHALER INHALATION SCH ×2 (07:13→18:35)
--- NOTE | 2022-02-07 07:17 | XR ---
EXAMINATION TYPE: XR chest 1V portable DATE OF EXAM: 02/07/2022 COMPARISON: 02/05/2022 HISTORY: Cough TECHNIQUE: Single frontal view of the chest is obtained. FINDINGS: There is improved aeration in the retrocardiac region compared to previous although focal opacity persists which could represent pneumonic infiltrate. Clinical correlation short-term follow-u p to resolution is recommended. There is mild interstitial opacity in the right lung base most likely atelectasis or chronic intersti tial scarring. The graft heart size is normal and the vasculature is not congested. There is no pneum othorax. The osseous structures are intact. IMPRESSION: Persistent infiltrate in the left lung base which has improved mildly in the interval. F indings most likely reflect parenchymal pneumonic infiltrate clinical correlation short-term follow-u p to resolution is recommended.
[2022-02-07 08:37] LABS: Basophils # (A) 0.02 X 10*3/uL (0.00-0.10); Basophils % (A) 0.1 %; Eosinophils # (A) 0 X 10*3/uL (0.04-0.35); Eosinophils % (A) 0 %; HCT 30.3 % (37.2-46.3); HGB 9.7 g/dL (12.0-15.0); Immature Grans, Automated 0.7 %; Lymphocytes # (A) 0.77 X 10*3/uL (0.90-5.00); Lymphocytes % (A) 4.1 %; MCH 29.2 pg (27.0-32.0); MCV 91.3 fL (80.0-97.0); Mean Platelet Volume 9.4 fL (9.5-12.2); Monocytes # (A) 0.92 X 10*3/uL (0.20-1.00); Monocytes % (A) 4.8 %; NRBC Per 100 WBC 0 /100 WBCS (0.0-0.0); Neutrophils # (A) 17.15 X 10*3/uL (1.80-7.70); Neutrophils % (A) 90.3 %; Platelet Count 487 X 10*3/uL (140-440); RBC 3.32 X 10*6/uL (4.10-5.20); RDW 13.9 % (11.5-14.5)
[2022-02-07 08:58] LABS: ALT 11 U/L (8-44); AST 8 U/L (13-35); African American GFR (CKD) 111.6 (60.0-200.0); Albumin 3.5 g/dL (3.8-4.9); Alkaline Phosphatase 94 U/L (41-126); Calcium 9.7 mg/dL (8.7-10.3); Carbon Dioxide 23.8 mmol/L (20.0-27.5); Chloride 105 mmol/L (96-109); Globulin 2.5 g/dL (1.6-3.3); Glucose 161 mg/dL (70-110); Magnesium 1.8 mg/dL (1.5-2.4); Non-African American GFR(CKD) 96.3 (60.0-200.0); Phosphorus 3.1 mg/dL (2.4-5.1); Potassium 4.5 mmol/L (3.5-5.5); Sodium 142 mmol/L (135-145); Total Bilirubin <0.15 mg/dL (0.30-1.20)
[2022-02-07] MEDS: AZITHROMYCIN 500 MG TAB PO SCH (09:48)
[2022-02-07] MEDS: ENOXAPARIN 40 MG/0.4 ML SYRINGE SQ SCH (09:48)
[2022-02-07] MEDS: PANTOPRAZOLE 40 MG TABLET PO SCH (09:49)
[2022-02-07] MEDS: methylPREDNISolone SOD SUCCI 40 MG/ML 1 ML VIAL IV SCH (09:50)
[2022-02-07] MEDS: CLINDAMYCIN 600 MG in DEXTROSE 5% IN WATER 50 ML IVPB SCH ×4 (11:07→20:45)
[2022-02-07] MEDS: HYDROmorphone 0.5 MG/0.5 ML SYRINGE IVP PRN ×2 (11:50→17:28)
--- NOTE | 2022-02-07 15:30 | P.PN ---
Subjective Progress Note Date: 02/07/22 Principal diagnosis: Community-acquired pneumonia This is a very pleasant 66-year-old female patient who follows with Dr. Bueno as her primary care provider. She has a history of hypothyroidism, anxiety, gastroesophageal reflux disease. She had tested positive for CoVID in November 2021. She is not vaccinated. She states she did have pneumonia according to her PCP and was treated with antibiotics and steroids. She's had ongoing issues with recurrent shortness of breath, cough and congestion. She felt that was mostly related to the CoVID infection. Yesterday she presented to the emergency with ongoing symptoms and increasing left-sided rib pain. Chest x-ray and CAT scan of the chest revealed evidence of a lingular pneumonia. Some residual effects of the COVID-19 pneumonia. Sputum culture pending. White count 30.6. Hemoglobin 11.1. Platelets 481. Lymphocytes 1.19. D-dimer 0.74. Sodium 136. Potassium 4.5. BUN 16. Creatinine 0.7. Glucose 138. Walter virus by PCR not detected. She's been initiated on ceftriaxone and azithromycin, DuoNeb inhalations, Flovent, IV Solu-Medrol. Lovenox for DVT prophylaxis. She is seen today in consultation on the regular medical floor. She is up ambulating in her room. Awake and alert in no acute distress. Maintaining good O2 saturation up to 100% on 2 L/m per nasal cannula. She's been afebrile. Hemodynamically stable. All of chest x-ray reveals a moderate left-sided pleural effusion with adjacent subsegmental atelectasis versus infection. Background changes of COPD. The patient is seen today 02/06/2022 in follow-up on the regular medical floor. She is currently sitting up in bed. Awake and alert in no acute distress. She is still having some ongoing issues with left-sided chest discomfort. She is requesting Dilaudid and Percocet on a regular basis. She is maintaining O2 saturations in the mid 90s on room air. No desaturations with activity. Blood cultures revealed no growth. Sputum cultures reveal no growth to date. No new labs today. She is continued on DuoNeb inhalations, IV Solu-Medrol, antibiotics in the form of ceftriaxone and azithromycin. Lovenox for DVT prophylaxis. The patient is seen today 02/07/2022 in follow-up on the regular medical floor. She is currently sitting up in bed. Awake and alert in no acute distress. Doing quite a bit better today compared to yesterday. Maintaining good O2 saturations in the mid 90s on room air. She's been afebrile. Hemodynamically stable. Her left-sided chest discomfort has mainly resolved. No worsening shortness of breath, cough or congestion. Blood cultures reveal no growth. Sputum cultures 2 revealed no growth. White count 19. Hemoglobin 9.7. Sodium 142. Potassium 4.5. BUN 18. Creatinine 0.6. She remains on DuoNeb inhalations, IV Solu-Medrol, antibiotics in the form of clindamycin and azithrom ycin. Lovenox for DVT prophylaxis. Ultrasound of the chest revealed a 2.5 cm pocket of the left pleural effusion. There was tissue seen anteriorly within the pocket. No plans for thoracentesis. The fluid is loculated and possibly an empyema. She had been seen and evaluated by interventional radiology yesterday who recommended a chest tube placement. However the patient received Lovenox yesterday. Objective - Vital Signs Vital signs: Vital Signs Temp 97.8 F 02/07/22 08:00 Pulse 92 02/07/22 08:00 Resp 16 02/07/22 08:00 BP 108/62 02/07/22 08:00 Pulse Ox 94 L 02/07/22 08:00 Intake & Output 02/06/22 02/07/22 02/07/22 18:59 06:59 18:59 Other: Voiding Method Toilet Toilet # Voids 4 - Exam GENERAL EXAM: Alert, active, very pleasant 66-year-old female, on room air, comfortable in no apparent distress. HEAD: Normocephalic. EYES: Normal reaction of pupils, equal size. NOSE: Clear with pink turbinates. THROAT: No erythema or exudates. NECK: No masses, no JVD. CHEST: No chest wall deformity. LUNGS: Equal air entry with crackles in the left base. CVS: S1 and S2 normal with no audible murmur, regular rhythm. ABDOMEN: No hepatosplenomegaly, normal bowel sounds, no guarding or rigidity. SPINE: No scoliosis or deformity SKIN: No rashes CENTRAL NERVOUS SYSTEM: No focal deficits, tone is normal in all 4 extremities. EXTREMITIES: There is no peripheral edema. No clubbing, no cyanosis. Peripheral pulses are intact. - Labs CBC & Chem 7: 02/07/22 06:32 02/07/22 06:32 Labs: Abnormal Lab Results - Last 24 Hours (Table) 02/07/22 02/07/22 Range/Units 06:32 06:32 WBC 19.00 H (4.50-10.00) X 10*3/uL RBC 3.32 L (4.10-5.20) X 10*6/uL Hgb 9.7 L (12.0-15.0) g/dL Hct 30.3 L (37.2-46.3) % Plt Count 487 H (140-440) X 10*3/uL MPV 9.4 L (9.5-12.2) fL Immature Gran # 0.14 H (0.00-0.04) X 10*3/uL Neutrophils # 17.15 H (1.80-7.70) X 10*3/uL Lymphocytes # 0.77 L (0.90-5.00) X 10*3/uL Eosinophils # 0 L (0.04-0.35) X 10*3/uL BUN/Creatinine Ratio 30.00 H (12.00-20.00) Ratio Glucose 161 H (70-110) mg/dL Total Bilirubin <0.15 L (0.30-1.20) mg/dL AST 8 L (13-35) U/L Total Protein 6.0 L (6.2-8.2) g/dL Albumin 3.5 L (3.8-4.9) g/dL Albumin/Globulin Ratio 1.40 L (1.60-3.17) g/dL Microbiology - Last 24 Hours (Table) 02/05/22 02:57 Gram Stain - Final Sputum Sputum Culture - Final 02/04/22 17:00 Gram Stain - Final Sputum Sputum Culture - Final 02/04/22 09:15 Blood Culture - Preliminary Blood No Growth after 72 hours 02/04/22 09:00 Blood Culture - Preliminary Blood No Growth after 72 hours Assessment and Plan Assessment: 1 Acute community-acquired pneumonia involving the lingula area ultrasound of the chest revealed a 2.5 cm pocket. This had multilocular formations and tissue within the pocket. Interventional radiology recommended chest tube placement but the patient had Lovenox. Cardiothoracic consult pending. 2 Left-sided chest wall pain secondary to above, improved 3 Recent COVID-19 infection in November 2021, negative this admission 4 Hypothyroidism 5 Anxiety 6 Gastroesophageal reflux disease Plan: The patient was seen and evaluated Chest x-ray, ultrasound and labs reviewed No plans for thoracentesis May require Pigtail catheter placement IR had been consulted Hold Lovenox Stable and on room air Sputum culture negative 2 Continue azithromycin and clindamycin for now Continue bronchodilators Continue incentive spirometer I have personally seen and examined the patient, performed the documentation and the assessment and plan as written. Number of minutes spent on the visit: 10.
--- NOTE | 2022-02-07 16:46 | P.PN ---
Subjective Progress Note Date: 02/07/22 Principal diagnosis: Shortness of breath Feeling ok, having some dysuria this am. No fevers. Still with cough. Objective - Vital Signs Vital signs: Vital Signs Temp 97.8 F 02/07/22 08:00 Pulse 92 02/07/22 08:00 Resp 16 02/07/22 08:00 BP 108/62 02/07/22 08:00 Pulse Ox 94 L 02/07/22 08:00 Intake & Output 02/06/22 02/07/22 02/07/22 18:59 06:59 18:59 Other: Voiding Method Toilet Toilet # Voids 4 - Exam Constitutional: No acute distress, conversant, pleasant Eyes:Anicteric sclerae, moist conjunctiva, no lid-lag, PERRLA, ENMT: Oropharynx clear, no erythema, exudates Neck: Supple, FROM, no masses, or JVD, No carotid bruits, No thyromegaly Lungs: Clear to auscultation, Clear to percussion, Normal respiratory effort, no accessory muscle use Cardiovascular: Heart regular in rate and rhythm, No murmurs, gallops, or rubs, No peripheral edema Abdominal: Soft, Nontender, no guarding, rebound or rigidity, Normoactive bowel sounds, No hepatomegaly, No splenomegaly, No palpable mass Skin: Normal temperature, tone, texture, turgor, no induration, No subcutaneous nodules, No rash, lesions, No ulcers Extremities: No digital cyanosis, No clubbing, Pedal pulses intact and symmetrical, Radial pulses intact and symmetrical, No calf tenderness Psychiatric: Alert and oriented to person, place and time, appropriate affect, intact judgement Neuro: Muscles Strength 5/5 in all 4 extremities, Sensation to light touch grossly present throughout, Cranial nerves II-XII grossly intact, no focal sensory deficits - Labs CBC & Chem 7: 02/07/22 06:32 02/07/22 06:32 Labs: Abnormal Lab Results - Last 24 Hours (Table) 02/07/22 02/07/22 Range/Units 06:32 06:32 WBC 19.00 H (4.50-10.00) X 10*3/uL RBC 3.32 L (4.10-5.20) X 10*6/uL Hgb 9.7 L (12.0-15.0) g/dL Hct 30.3 L (37.2-46.3) % Plt Count 487 H (140-440) X 10*3/uL MPV 9.4 L (9.5-12.2) fL Immature Gran # 0.14 H (0.00-0.04) X 10*3/uL Neutrophils # 17.15 H (1.80-7.70) X 10*3/uL Lymphocytes # 0.77 L (0.90-5.00) X 10*3/uL Eosinophils # 0 L (0.04-0.35) X 10*3/uL BUN/Creatinine Ratio 30.00 H (12.00-20.00) Ratio Glucose 161 H (70-110) mg/dL Total Bilirubin <0.15 L (0.30-1.20) mg/dL AST 8 L (13-35) U/L Total Protein 6.0 L (6.2-8.2) g/dL Albumin 3.5 L (3.8-4.9) g/dL Albumin/Globulin Ratio 1.40 L (1.60-3.17) g/dL Microbiology - Last 24 Hours (Table) 02/05/22 02:57 Gram Stain - Final Sputum Sputum Culture - Final 02/04/22 17:00 Gram Stain - Final Sputum Sputum Culture - Final 02/04/22 09:15 Blood Culture - Preliminary Blood No Growth after 72 hours 02/04/22 09:00 Blood Culture - Preliminary Blood No Growth after 72 hours Assessment and Plan Plan: Multifocal pneumonia with loculated left-sided pleural effusion -Was on oxygen earlier now off. -Monitor Pulse-oximetry -Duonebs as needed for SOB and/or wheezing -Incentive Spirometry, encourage use 10-15 times hourly while awake -D/c Solu-Medrol -Due to suspicion for empyema need to expand antibiotics coverage, start cefepime and clindamycin, continue azithromycin -Sputum and blood culture negative -Pulmonology on. -IR consulted for thoracentesis, stated that patient has loculated pockets of infection in the left hemithorax, consulted CT surgery who stated that they prefer IR to do a pigtail catheter. Reconsulted IR. Dysuria -Check UA Hypothyroidism Continue daily medication regimen with levothyroxine. GERD Continue daily medication regimen with Protonix. CODE STATUS: Full code DVT prophylaxis: Lovenox Discussed with: Patient, patient's , and RN Anticipated discharge date: Clinical course to determine Anticipated discharge place: Home
[2022-02-07] MEDS: CEFEPIME 2 GM in SODIUM CHLORIDE 0.9% 100 ML IVPB SCH (17:29)
[2022-02-07 19:58] LABS: Appearance,Urine Clear (Clear); Bilirubin,Urine Negative (Negative); Blood,Urine Negative (Negative); Color,Urine Light Yellow; Glucose,Urine (UA) Negative (Negative); Ketones,Urine Negative (Negative); Leukocyte Esterase,Urine Negative (Negative); Nitrite,Urine Negative (Negative); Protein,Urine Negative (Negative); Specific Gravity,Urine 1.006 (1.001-1.035); Urobilinogen,Urine <2.0 mg/dL (<2.0)
[2022-02-07] MEDS: ALPRAZolam 0.5 MG TAB PO SCH (20:44)
[2022-02-07] MEDS: AMITRIPTYLINE HCL 25 MG TAB PO SCH (20:44)
[2022-02-08] MEDS: HYDROmorphone 0.5 MG/0.5 ML SYRINGE IVP PRN ×2 (00:04→09:03)
[2022-02-08] MEDS: IPRATROPIUM-ALBUTEROL 3 ML NEB INHALATION PRN ×4 (00:32→11:57)
[2022-02-08] MEDS: oxyCODONE-APAP 5-325MG 1 EACH TAB PO PRN ×4 (00:50→22:56)
[2022-02-08] MEDS: CLINDAMYCIN 600 MG in DEXTROSE 5% IN WATER 50 ML IVPB SCH ×6 (03:28→21:48)
[2022-02-08] MEDS: CEFEPIME 2 GM in SODIUM CHLORIDE 0.9% 100 ML IVPB SCH ×2 (06:10→17:25)
[2022-02-08] MEDS: LEVOTHYROXINE 88 MCG TAB PO SCH (06:11)
--- NOTE | 2022-02-08 08:36 | XR ---
EXAMINATION TYPE: XR chest 1V portable DATE OF EXAM: 02/08/2022 COMPARISON: 02/07/2022 HISTORY: Follow-up left lower lobe pneumonia TECHNIQUE: Single frontal view of the chest is obtained. FINDINGS: The focal consolidative opacity in the left lung base persists. Mild increased focal inter stitial markings in the right lung base remain stable. There is no pneumothorax or pleural effusion. Heart size normal. There is a rounded masslike opacity in the retrocardiac region medial to the lower lobe parenchymal opacity which could represent a focal aneurysm of the descending thoracic aorta or less likely a hiatal hernia. It was seen previously and is stable. IMPRESSION: No significant interval change in the left lower lobe opacity when compared to previous.
[2022-02-08] MEDS: FLUTICASONE 110 MCG INHALER INHALATION SCH ×2 (08:37→21:22)
[2022-02-08] MEDS: AZITHROMYCIN 500 MG TAB PO SCH (08:55)
[2022-02-08] MEDS: PANTOPRAZOLE 40 MG TABLET PO SCH (08:55)
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
[2022-02-08 11:43] LABS: Basophils # (A) 0.01 X 10*3/uL (0.00-0.10); Basophils % (A) 0.1 %; Eosinophils # (A) 0.02 X 10*3/uL (0.04-0.35); Eosinophils % (A) 0.2 %; HCT 30.2 % (37.2-46.3); HGB 9.3 g/dL (12.0-15.0); Immature Grans, Automated 0.6 %; Lymphocytes # (A) 1.57 X 10*3/uL (0.90-5.00); Lymphocytes % (A) 14.8 %; MCH 28.4 pg (27.0-32.0); MCHC 30.8 g/dL (32.0-37.0); MCV 92.4 fL (80.0-97.0); Mean Platelet Volume 9.2 fL (9.5-12.2); Monocytes # (A) 0.95 X 10*3/uL (0.20-1.00); NRBC Per 100 WBC 0 /100 WBCS (0.0-0.0); Neutrophils # (A) 7.99 X 10*3/uL (1.80-7.70); Neutrophils % (A) 75.3 %; Platelet Count 451 X 10*3/uL (140-440); RBC 3.27 X 10*6/uL (4.10-5.20); RDW 14.1 % (11.5-14.5)
[2022-02-08 11:56] LABS: Anion Gap 11.4 mmol/L (10.00-18.00); BUN/Creat Ratio 33.91 Ratio (12.00-20.00); Blood Urea Nitrogen 19.6 mg/dL (9.0-27.0); Calcium 9.6 mg/dL (8.7-10.3); Carbon Dioxide 25.2 mmol/L (20.0-27.5); Magnesium 1.7 mg/dL (1.5-2.4); Non-African American GFR(CKD) 97.5 (60.0-200.0)
--- NOTE | 2022-02-08 12:19 | P.PN ---
Subjective Progress Note Date: 02/08/22 Principal diagnosis: Community-acquired pneumonia This is a very pleasant 66-year-old female patient who follows with Dr. Bueno as her primary care provider. She has a history of hypothyroidism, anxiety, gastroesophageal reflux disease. She had tested positive for CoVID in November 2021. She is not vaccinated. She states she did have pneumonia according to her PCP and was treated with antibiotics and steroids. She's had ongoing issues with recurrent shortness of breath, cough and congestion. She felt that was mostly related to the CoVID infection. Yesterday she presented to the emergency with ongoing symptoms and increasing left-sided rib pain. Chest x-ray and CAT scan of the chest revealed evidence of a lingular pneumonia. Some residual effects of the COVID-19 pneumonia. Sputum culture pending. White count 30.6. Hemoglobin 11.1. Platelets 481. Lymphocytes 1.19. D-dimer 0.74. Sodium 136. Potassium 4.5. BUN 16. Creatinine 0.7. Glucose 138. Walter virus by PCR not detected. She's been initiated on ceftriaxone and azithromycin, DuoNeb inhalations, Flovent, IV Solu-Medrol. Lovenox for DVT prophylaxis. She is seen today in consultation on the regular medical floor. She is up ambulating in her room. Awake and alert in no acute distress. Maintaining good O2 saturation up to 100% on 2 L/m per nasal cannula. She's been afebrile. Hemodynamically stable. All of chest x-ray reveals a moderate left-sided pleural effusion with adjacent subsegmental atelectasis versus infection. Background changes of COPD. The patient is seen today 02/06/2022 in follow-up on the regular medical floor. She is currently sitting up in bed. Awake and alert in no acute distress. She is still having some ongoing issues with left-sided chest discomfort. She is requesting Dilaudid and Percocet on a regular basis. She is maintaining O2 saturations in the mid 90s on room air. No desaturations with activity. Blood cultures revealed no growth. Sputum cultures reveal no growth to date. No new labs today. She is continued on DuoNeb inhalations, IV Solu-Medrol, antibiotics in the form of ceftriaxone and azithromycin. Lovenox for DVT prophylaxis. The patient is seen today 02/07/2022 in follow-up on the regular medical floor. She is currently sitting up in bed. Awake and alert in no acute distress. Doing quite a bit better today compared to yesterday. Maintaining good O2 saturations in the mid 90s on room air. She's been afebrile. Hemodynamically stable. Her left-sided chest discomfort has mainly resolved. No worsening shortness of breath, cough or congestion. Blood cultures reveal no growth. Sputum cultures 2 revealed no growth. White count 19. Hemoglobin 9.7. Sodium 142. Potassium 4.5. BUN 18. Creatinine 0.6. She remains on DuoNeb inhalations, IV Solu-Medrol, antibiotics in the form of clindamycin and azithrom ycin. Lovenox for DVT prophylaxis. Ultrasound of the chest revealed a 2.5 cm pocket of the left pleural effusion. There was tissue seen anteriorly within the pocket. No plans for thoracentesis. The fluid is loculated and possibly an empyema. She had been seen and evaluated by interventional radiology yesterday who recommended a chest tube placement. However the patient received Lovenox yesterday. The patient is seen today 02/08/2022 in follow-up on the regular medical floor. He continues to improve daily. She is maintaining good O2 saturations in the mid 90s on room air. She's been afebrile. Hemodynamically stable. Chest x-ray continues to show a left lower lobe opacity. Unchanged. Sputum culture revealed no growth. Blood cultures revealed no growth. White count 10.6. Hem oglobin 9.3. Sodium 140. Potassium 4.0. Creatinine 0.6. Urinalysis clear. She remains on antibiotics in the form of cefepime, azithromycin and clindamycin per medicine. Continued on bronchodilators. Objective - Vital Signs Vital signs: Vital Signs Temp 97.7 F 02/08/22 08:00 Pulse 75 02/08/22 12:05 Resp 16 02/08/22 08:00 BP 141/77 02/08/22 08:00 Pulse Ox 96 02/08/22 08:00 Intake & Output 02/07/22 02/08/22 02/08/22 17:59 06:59 18:59 Intake Total Balance Intake: Intake, IV Titration Amount Cefepime 2 gm In Sodium Chloride 0.9% 100 ml @ 25 mls/hr IVPB Q12H [facility] Rx# :[id number] Clindamycin 600 mg In Dextrose 5% in Water 50 ml @ 50 mls/hr IVPB Q8H [facility] Rx#:[id number] Oral Other: Voiding Method Toilet # Voids - Exam GENERAL EXAM: Alert, pleasant 66-year-old female, on room air, comfortable in no apparent distress. HEAD: Normocephalic. EYES: Normal reaction of pupils, equal size. NOSE: Clear with pink turbinates. THROAT: No erythema or exudates. NECK: No masses, no JVD. CHEST: No chest wall deformity. LUNGS: Equal air entry with crackles in the left base. CVS: S1 and S2 normal with no audible murmur, regular rhythm. ABDOMEN: No hepatosplenomegaly, normal bowel sounds, no guarding or rigidity. SPINE: No scoliosis or deformity SKIN: No rashes CENTRAL NERVOUS SYSTEM: No focal deficits, tone is normal in all 4 extremities. EXTREMITIES: There is no peripheral edema. No clubbing, no cyanosis. Peripheral pulses are intact. - Labs CBC & Chem 7: 02/08/22 07:07 02/08/22 07:07 Labs: Abnormal Lab Results - Last 24 Hours (Table) 02/08/22 02/08/22 Range/Units 07:07 07:07 WBC 10.60 H (4.50-10.00) X 10*3/uL RBC 3.27 L (4.10-5.20) X 10*6/uL Hgb 9.3 L (12.0-15.0) g/dL Hct 30.2 L (37.2-46.3) % MCHC 30.8 L (32.0-37.0) g/dL Plt Count 451 H (140-440) X 10*3/uL MPV 9.2 L (9.5-12.2) fL Immature Gran # 0.06 H (0.00-0.04) X 10*3/uL Neutrophils # 7.99 H (1.80-7.70) X 10*3/uL Eosinophils # 0.02 L (0.04-0.35) X 10*3/uL BUN/Creatinine Ratio 33.91 H (12.00-20.00) Ratio Microbiology - Last 24 Hours (Table) 02/04/22 09:15 Blood Culture - Preliminary Blood No Growth after 96 hours 02/04/22 09:00 Blood Culture - Preliminary Blood No Growth after 96 hours 02/05/22 02:57 Gram Stain - Final Sputum Sputum Culture - Final 02/04/22 17:00 Gram Stain - Final Sputum Sputum Culture - Final Assessment and Plan Assessment: 1 Acute community-acquired pneumonia involving the lingula area ultrasound of the chest revealed a 2.5 cm pocket. This had multilocular formations and tissue within the pocket. Interventional radiology recommended chest tube placement but the patient had Lovenox. Cardiothoracic consult noted. The patient declines to have any chest tube placements at this time. She continues to imp rove. 2 Left-sided chest wall pain secondary to above, improved 3 Recent COVID-19 infection in November 2021, negative this admission 4 Hypothyroidism 5 Anxiety 6 Gastroesophageal reflux disease Plan: The patient was seen and evaluated Chest x-ray,labs reviewed The patient declined any chest tube insertion Stable and on room air Continue incentive spirometer Cleared for discharge from the pulmonary standpoint I have personally seen and examined the patient, performed the documentation and the assessment and plan as written. Number of minutes spent on the visit: 10.
--- NOTE | 2022-02-08 12:24 | P.PN ---
Subjective Progress Note Date: 02/08/22 Principal diagnosis: Shortness of breath Feeling ok, symptoms have improved compared to before. Cough and breathing better. Still with pleuritic pain in the left lower chest. Objective - Vital Signs Vital signs: Vital Signs Temp 97.7 F 02/08/22 08:00 Pulse 75 02/08/22 12:05 Resp 16 02/08/22 08:00 BP 141/77 02/08/22 08:00 Pulse Ox 96 02/08/22 08:00 Intake & Output 02/07/22 02/08/22 02/08/22 17:59 06:59 18:59 Intake Total Balance Intake: Intake, IV Titration Amount Cefepime 2 gm In Sodium Chloride 0.9% 100 ml @ 25 mls/hr IVPB Q12H [facility] Rx# :[id number] Clindamycin 600 mg In Dextrose 5% in Water 50 ml @ 50 mls/hr IVPB Q8H [facility] Rx#:[id number] Oral Other: Voiding Method Toilet # Voids - Exam Constitutional: No acute distress, conversant, pleasant Eyes:Anicteric sclerae, moist conjunctiva, no lid-lag, PERRLA, ENMT: Oropharynx clear, no erythema, exudates Neck: Supple, FROM, no masses, or JVD, No carotid bruits, No thyromegaly Lungs: Clear to auscultation, Clear to percussion, Normal respiratory effort, no accessory muscle use Cardiovascular: Heart regular in rate and rhythm, No murmurs, gallops, or rubs, No peripheral edema Abdominal: Soft, Nontender, no guarding, rebound or rigidity, Normoactive bowel sounds, No hepatomegaly, No splenomegaly, No palpable mass Skin: Normal temperature, tone, texture, turgor, no induration, No subcutaneous nodules, No rash, lesions, No ulcers Extremities: No digital cyanosis, No clubbing, Pedal pulses intact and symmetrical, Radial pulses intact and symmetrical, No calf tenderness Psychiatric: Alert and oriented to person, place and time, appropriate affect, intact judgement Neuro: Muscles Strength 5/5 in all 4 extremities, Sensation to light touch grossly present throughout, Cranial nerves II-XII grossly intact, no focal sensory deficits - Labs CBC & Chem 7: 02/08/22 07:07 02/08/22 07:07 Labs: Abnormal Lab Results - Last 24 Hours (Table) 02/08/22 02/08/22 Range/Units 07:07 07:07 WBC 10.60 H (4.50-10.00) X 10*3/uL RBC 3.27 L (4.10-5.20) X 10*6/uL Hgb 9.3 L (12.0-15.0) g/dL Hct 30.2 L (37.2-46.3) % MCHC 30.8 L (32.0-37.0) g/dL Plt Count 451 H (140-440) X 10*3/uL MPV 9.2 L (9.5-12.2) fL Immature Gran # 0.06 H (0.00-0.04) X 10*3/uL Neutrophils # 7.99 H (1.80-7.70) X 10*3/uL Eosinophils # 0.02 L (0.04-0.35) X 10*3/uL BUN/Creatinine Ratio 33.91 H (12.00-20.00) Ratio Microbiology - Last 24 Hours (Table) 02/04/22 09:15 Blood Culture - Preliminary Blood No Growth after 96 hours 02/04/22 09:00 Blood Culture - Preliminary Blood No Growth after 96 hours 02/05/22 02:57 Gram Stain - Final Sputum Sputum Culture - Final 02/04/22 17:00 Gram Stain - Final Sputum Sputum Culture - Final Assessment and Plan Plan: Multifocal pneumonia with loculated left-sided pleural effusion -Was on oxygen earlier now off. -Monitor Pulse-oximetry -Duonebs as needed for SOB and/or wheezing -Incentive Spirometry, encourage use 10-15 times hourly while awake -D/c Solu-Medrol -Due to suspicion for empyema antibiotics coverage expanded continue cefepime and clindamycin, discontinue azithromycin -Sputum and blood culture negative -Pulmonology on. -IR consulted for thoracentesis, stated that patient has loculated pockets of infection in the left hemithorax, consulted CT surgery who stated that they prefer IR to do a pigtail catheter. Reconsulted IR. Dysuria -UA negative Hypothyroidism Continue daily medication regimen with levothyroxine. GERD Continue daily medication regimen with Protonix. CODE STATUS: Full code DVT prophylaxis: Lovenox Discussed with: Patient, patient's , and RN Anticipated discharge date: Clinical course to determine Anticipated discharge place: Home
[2022-02-08] MEDS: ALPRAZolam 0.5 MG TAB PO SCH (21:48)
[2022-02-08] MEDS: AMITRIPTYLINE HCL 25 MG TAB PO SCH (21:48)
[2022-02-09] MEDS: HYDROmorphone 0.5 MG/0.5 ML SYRINGE IVP PRN ×4 (01:28→23:26)
[2022-02-09] MEDS: CLINDAMYCIN 600 MG in DEXTROSE 5% IN WATER 50 ML IVPB SCH ×6 (03:05→19:57)
[2022-02-09] MEDS: oxyCODONE-APAP 5-325MG 1 EACH TAB PO PRN ×5 (03:45→21:19)
[2022-02-09] MEDS: LEVOTHYROXINE 88 MCG TAB PO SCH (06:12)
[2022-02-09] MEDS: CEFEPIME 2 GM in SODIUM CHLORIDE 0.9% 100 ML IVPB SCH ×2 (06:13→17:28)
[2022-02-09] MEDS: PANTOPRAZOLE 40 MG TABLET PO SCH (08:00)
--- NOTE | 2022-02-09 08:22 | XR ---
EXAMINATION TYPE: XR chest 1V portable DATE OF EXAM: 02/09/2022 Comparison: 02/08/2022 Clinical History: 66-year-old female pneumonia Findings: Heart normal size. Hyperinflation. Mild interstitial prominence. Some patchy change at the periphery of the right base is unchanged. Focal airspace opacity at the left base is also unchanged. Impression: COPD with continued focal left basilar opacity/pneumonia. Follow-up to ensure clearance. Similar less er degree of patchy infiltrate at the right base.
[2022-02-09] MEDS: IPRATROPIUM-ALBUTEROL 3 ML NEB INHALATION PRN ×3 (08:54→19:30)
[2022-02-09] MEDS: FLUTICASONE 110 MCG INHALER INHALATION SCH ×2 (08:54→19:29)
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
--- NOTE | 2022-02-09 13:55 | P.PN ---
Subjective Progress Note Date: 02/09/22 History of Presenting Illness: Patient is a very pleasant 66-year-old female with a past medical history of hypothyroidism, GERD, and recent infection with Covid pneumonia back in November 2021. Patient presented to the emergency department with a chief complaint of shortness of breath and cough. Patient reports full resolution of symptoms from previous Covid infection back in November and approximately 2 weeks ago began developing shortness of breath and cough. 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 Patient reports over the last 2 weeks her symptoms have significantly increased and worsened so she came to the emergency department for evaluation..Labs revealing leukocytosis with WBC count 24.6 with left shift, thrombocytosis with platelet count of 666. Elevated d-dimer at 0.74 with normal troponin at less than 0.012. ProBNP of 169. And hypomagnesemia with magnesium of 1.5. Chest x- ray revealing suspected left lower lobe pneumonia versus consolidation versus collapse. CTA showing no evidence for PE with multifocal pneumonia. EKG showing sinus tachycardia at 133 bpm with no noted T-wave or ST abnormalities. Covid PCR obtained and negative. Patient was admitted to our services with consultation to pulmonology and cardiothoracic surgery. Physical exam: Patient seen and fully evaluated at bedside this morning. She reports improvement in her rib pain and breathing, but continues to report that she requires pain medications around the clock continue to control. Patient on room air and reports she is breathing better and coughing less. She denies experiencing any dizziness, lightheadedness, palpitations, or experiencing any numbness/tingling/weakness in her extremities. Heart rate has improved down to the 80s and patient is no longer tachycardic. Leukocytosis continues to improve and is down to 10.60 this morning. Patient remains on IV antibiotics with cefepime and clindamycin. Repeat morning x-ray completed showing no significant changes. Pulmonology and cardiothoracic surgery following, appreciate further recommendations. Magnesium 1.7, orders for replacement. Vital signs reviewed and stable. General: Nontoxic, no distress and appears stated age. Derm: Skin warm and dry, normal coloration for ethnicity. Head: Atraumatic, normocephalic and symmetric. Eyes: EOMs intact, no lid lag, and anicteric sclera Mouth: no lip lesions, mucus membranes moist Cardiovascular: Tachycardic rate and regular rhythm with normal S1S2, no murmur, positive posterior tibial pulses bilaterally, and cap refill < 2 seconds. Lungs: Respirations even, regular, and unlabored on room air. Lungs diffuse r honchi left lower lobe, otherwise diminished with with soft expiratory wheezes. Abdominal: soft, nontender to palpation, no guarding, no appreciable organomegaly Ext: ROM intact. No gross muscle atrophy, no edema, no contractures Neuro: Speech clear, face symmetrical and CN II-XII grossly intact with no noted focal neuro deficits Psych: Alert and oriented to person, place, time, and situation. Appropriate and pleasant affect. Assessment and Plan of Care: Multifocal pneumonia Loculated left pleural effusion Left rib pain secondary to above -Oxygenation to be administered and titrated as needed to maintain SPO2 equal to or greater than 92% -Telemetry monitoring. -Monitor Pulse-oximetry -Duonebs as needed for SOB and/or wheezing -Incentive Spirometry, encourage use 10-15 times hourly while awake -Steroids: Solu-Medrol -Antibiotics: Rocephin and azithromycin pending sputum cultures. -Sputum culture negative -Blood culture showing no growth after 120 hours -Pulmonology following -Cardiothoracic surgery following -Encourage oral hydration -Symptomatic care and pain management for rib pain. Hypothyroidism Continue daily medication regimen with levothyroxine. GERD Continue daily medication regimen with Protonix. The patient is admitted with an anticipated greater than 2 midnight stay for evaluation of multifocal pneumonia CODE STATUS: Full code DVT prophylaxis: SCDs Discussed with: Patient and RN Anticipated discharge date: Clinical course to determine Anticipated discharge place: Home A total of 35 minutes was spent on the care of this complex patient more than 50% of the time was spent in counseling and care coordination. Objective - Vital Signs Vital signs: Vital Signs Temp 97.4 F L 02/09/22 07:36 Pulse 80 02/09/22 09:05 Resp 16 02/09/22 02:25 BP 126/82 02/09/22 07:36 Pulse Ox 93 L 02/09/22 07:36 Intake & Output 02/08/22 02/09/22 02/09/22 18:59 06:59 18:59 Intake Total 1230 800 Balance 1230 800 Intake: Intake, IV Titration 150 200 Amount Cefepime 2 gm In Sodium 100 100 Chloride 0.9% 100 ml @ 25 mls/hr IVPB Q12H [facility] Rx# :[id number] Clindamycin 600 mg In 50 100 Dextrose 5% in Water 50 ml @ 50 mls/hr IVPB Q8H [facility] Rx#:[id number] Oral 1080 600 Other: Voiding Method Toilet # Voids 3 5 - Labs CBC & Chem 7: 02/08/22 07:07 02/08/22 07:07 Labs: Abnormal Lab Results - Last 24 Hours (Table) 02/08/22 02/08/22 Range/Units 07:07 07:07 WBC 10.60 H (4.50-10.00) X 10*3/uL RBC 3.27 L (4.10-5.20) X 10*6/uL Hgb 9.3 L (12.0-15.0) g/dL Hct 30.2 L (37.2-46.3) % MCHC 30.8 L (32.0-37.0) g/dL Plt Count 451 H (140-440) X 10*3/uL MPV 9.2 L (9.5-12.2) fL Immature Gran # 0.06 H (0.00-0.04) X 10*3/uL Neutrophils # 7.99 H (1.80-7.70) X 10*3/uL Eosinophils # 0.02 L (0.04-0.35) X 10*3/uL BUN/Creatinine Ratio 33.91 H (12.00-20.00) Ratio Microbiology - Last 24 Hours (Table) 02/04/22 09:15 Blood Culture - Preliminary Blood No Growth after 96 hours 02/04/22 09:00 Blood Culture - Preliminary Blood No Growth after 96 hours
[2022-02-09] MEDS: MAGNESIUM SULFATE-D5W PMX 1 GM in DEXTROSE/WATER 1 100ML.BAG IVPB SCH ×2 (14:33→16:17)
--- NOTE | 2022-02-09 15:34 | P.PN ---
<Daija Salgado M - Last Filed: 02/09/22 15:25> Subjective Progress Note Date: 02/09/22 Principal diagnosis: Left-sided pleuritic chest pain This is a very pleasant 66-year-old female patient who follows with Dr. Bueno as her primary care provider. She has a history of hypothyroidism, a nxiety, gastroesophageal reflux disease. She had tested positive for CoVID in November 2021. She is not vaccinated. She states she did have pneumonia according to her PCP and was treated with antibiotics and steroids. She's had ongoing issues with recurrent shortness of breath, cough and congestion. She felt that was mostly related to the CoVID infection. Yesterday she presented to the emergency with ongoing symptoms and increasing left-sided rib pain. Chest x-ray and CAT scan of the chest revealed evidence of a lingular pneumonia. Some residual effects of the COVID-19 pneumonia. Sputum culture pending. White count 30.6. Hemoglobin 11.1. Platelets 481. Lymphocytes 1.19. D-dimer 0.74. Sodium 136. Potassium 4.5. BUN 16. Creatinine 0.7. Glucose 138. Walter virus by PCR not detected. She's been initiated on ceftriaxone and azithromycin, DuoNeb inhalations, Flovent, IV Solu-Medrol. Lovenox for DVT prophylaxis. She is seen today in consultation on the regular medical floor. She is up ambulating in her room. Awake and alert in no acute distress. Maintaining good O2 saturation up to 100% on 2 L/m per nasal cannula. She's been afebrile. Hemodynamically stable. All of chest x-ray reveals a moderate left-sided pleural effusion with adjacent subsegmental atelectasis versus infection. Background changes of COPD. The patient is seen today 02/06/2022 in follow-up on the regular medical floor. She is currently sitting up in bed. Awake and alert in no acute distress. She is still having some ongoing issues with left-sided chest discomfort. She is requesting Dilaudid and Percocet on a regular basis. She is maintaining O2 saturations in the mid 90s on room air. No desaturations with activity. Blood cultures revealed no growth. Sputum cultures reveal no growth to date. No new labs today. She is continued on DuoNeb inhalations, IV Solu-Medrol, antibiotics in the form of ceftriaxone and azithromycin. Lovenox for DVT prophylaxis. The patient is seen today 02/07/2022 in follow-up on the regular medical floor. She is currently sitting up in bed. Awake and alert in no acute distress. Doing quite a bit better today compared to yesterday. Maintaining good O2 saturations in the mid 90s on room air. She's been afebrile. Hemodynamically stable. Her left-sided chest discomfort has mainly resolved. No worsening shortness of breath, cough or congestion. Blood cultures reveal no growth. Sputum cultures 2 revealed no growth. White count 19. Hemoglobin 9.7. Sodium 142. Potassium 4.5. BUN 18. Creatinine 0.6. She remains on DuoNeb inh alations, IV Solu-Medrol, antibiotics in the form of clindamycin and azithromycin. Lovenox for DVT prophylaxis. Ultrasound of the chest revealed a 2.5 cm pocket of the left pleural effusion. There was tissue seen anteriorly within the pocket. No plans for thoracentesis. The fluid is loculated and possibly an empyema. She had been seen and evaluated by interventional radiology yesterday who recommended a chest tube placement. However the patient received Lovenox yesterday. The patient is seen today 02/08/2022 in follow-up on the regular medical floor. He continues to improve daily. She is maintaining good O2 saturations in the mid 90s on room air. She's been afebrile. Hemodynamically stable. Chest x-ray continues to show a left lower lobe opacity. Unchanged. Sputum culture re vealed no growth. Blood cultures revealed no growth. White count 10.6. Hemoglobin 9.3. Sodium 140. Potassium 4.0. Creatinine 0.6. Urinalysis clear. She remains on antibiotics in the form of cefepime, azithromycin and clindamycin per medicine. Continued on bronchodilators. On 02/09/2022 patient seen in follow-up on medical surgical floor. Today she looks comfortable, she sits up in bed, currently on room air, with pulse ox of 94-98% she's been afebrile, vital signs stable, she still having some left rib chest discomfort, but no acute distress was noted, no worsening shortness of aneta ath. Follow-up chest x-ray today showing mild interstitial prominence, and patchy change at the periphery of the right base, focal airspace opacity at the left base is unchanged. Patient was seen in consultation by CT surgery, and patient is not a candidate for chest tube placement at this time. She continues on cefepime for antibiotic coverage, she is on breathing treatments, she is receiving oral medications for pleuritic chest discomfort. Her blood and sputum cultures have shown no growth. Her labs show significant improvement in her leukocytosis, and her white blood cell count is down to 10.6 compared to 30.6 on 02/05/2022. Hemoglobin is 9.3, electrolytes and renal profile are unremarkable. No altered mentation, no acute distress. Patient was recommended to continue medical treatment right now. Objective - Vital Signs Vital signs: Vital Signs Temp 97.4 F L 02/09/22 07:36 Pulse 120 H 02/09/22 14:00 Resp 20 02/09/22 14:00 BP 127/77 02/09/22 14:00 Pulse Ox 96 02/09/22 14:00 Intake & Output 02/08/22 02/09/22 02/09/22 18:59 06:59 18:59 Intake Total 1230 800 Balance 1230 800 Intake: Intake, IV Titration 150 200 Amount Cefepime 2 gm In Sodium 100 100 Chloride 0.9% 100 ml @ 25 mls/hr IVPB Q12H [facility] Rx# :[id number] Clindamycin 600 mg In 50 100 Dextrose 5% in Water 50 ml @ 50 mls/hr IVPB Q8H [facility] Rx#:[id number] Oral 1080 600 Other: Voiding Method Toilet Toilet # Voids 3 5 - Exam GENERAL EXAM: Alert, very pleasant, 66-year-old white female, on room air with pulse ox of 94-98%, comfortable in no apparent distress. HEAD: Normocephalic/atraumatic. EYES: Normal reaction of pupils, equal size. Conjunctiva pink, sclera white. NOSE: Clear with pink turbinates. THROAT: No erythema or exudates. NECK: No masses, no JVD, no thyroid enlargement, no adenopathy. CHEST: No chest wall deformity. Symmetrical expansion. LUNGS: Diminished breath sounds at the bases CVS: Regular rate and rhythm, normal S1 and S2, no gallops, no murmurs, no rubs ABDOMEN: Soft, nontender. No hepatosplenomegaly, normal bowel sounds, no guarding or rigidity. EXTREMITIES: No clubbing, no edema, no cyanosis, 2+ pulses and upper and lower extremities. MUSCULOSKELETAL: Muscle strength and tone normal. SPINE: No scoliosis or deformity SKIN: No rashes CENTRAL NERVOUS SYSTEM: Alert and oriented -3. No focal deficits, tone is normal in all 4 extremities. PSYCHIATRIC: Alert and oriented -3. Appropriate affect. Intact judgment and insight. - Labs CBC & Chem 7: 02/08/22 07:07 02/08/22 07:07 Labs: Microbiology - Last 24 Hours (Table) 02/04/22 09:00 Blood Culture - Preliminary Blood No Growth after 120 hours 02/04/22 09:15 Blood Culture - Preliminary Blood No Growth after 120 hours Assessment and Plan Plan: Assessment: #1. Acute community acquired pneumonia involving the lingula, with multi loculated information sent she within the pleural effusion pocket on the left. CT surgery was consulted for possible placement of the chest tube however she is currently not a candidate, and medical treatment was recommended #2. Left-sided chest wall pain secondary to the above, improved #3. COVID 19 infection in November 2021 #4. Hypothyroidism #5. Anxiety #6. GERD/reflux Plan: Continue current medical treatment, Continue antibiotics, patient is on a combination of cefepime and clindamycin No plans for chest tube insertion, Left-sided pleuritic chest discomfort is improving, vital signs have been stable No acute events overnight We'll continue to follow her clinical status, and make recommendations accordingly White count is improving, patient has been afebrile She seems to be improving with medical treatment I have personally seen and examined the patient, performed the documentation and the assessment and plan as written. Number of minutes spent on the visit: [10] Time with Patient: Less than 30 <Marifer Mendes - Last Filed: 02/09/22 18:16> Objective - Vital Signs Vital signs: Vital Signs Temp 97.4 F L 02/09/22 07:36 Pulse 120 H 02/09/22 14:00 Resp 20 02/09/22 14:00 BP 127/77 02/09/22 14:00 Pulse Ox 96 02/09/22 14:00 Intake & Output 02/08/22 02/09/22 02/09/22 18:59 06:59 18:59 Intake Total 1230 800 Balance 1230 800 Weight 59.421 kg Intake: Intake, IV Titration 150 200 Amount Cefepime 2 gm In Sodium 100 100 Chloride 0.9% 100 ml @ 25 mls/hr IVPB Q12H [facility] Rx# :[id number] Clindamycin 600 mg In 50 100 Dextrose 5% in Water 50 ml @ 50 mls/hr IVPB Q8H [facility] Rx#:[id number] Oral 1080 600 Other: Voiding Method Toilet Toilet # Voids 3 5 - Labs CBC & Chem 7: 02/08/22 07:07 02/08/22 07:07 Labs: Microbiology - Last 24 Hours (Table) 02/04/22 09:00 Blood Culture - Preliminary Blood No Growth after 120 hours 02/04/22 09:15 Blood Culture - Preliminary Blood No Growth after 120 hours Assessment and Plan Plan: I have personally seen and examined the patient and reviewed the documentation. I performed a joint evaluation with the nurse practitioner in this evaluation was done more than 20 minutes. I fully agree with the documentation above and the plan of care.. Discussed the case with the cardiothoracic team. Discussed case with the patient. No need for any chest tube insertion at this point in t lorie. This is a classic the left lower lobe pneumonia with lingular involvement and the patient will be continued the same antibiotic coverage for now.
[2022-02-09] MEDS: AMITRIPTYLINE HCL 25 MG TAB PO SCH ×2 (21:13→22:33)
[2022-02-09] MEDS: ALPRAZolam 0.5 MG TAB PO SCH (22:33)
[2022-02-10] MEDS: oxyCODONE-APAP 5-325MG 1 EACH TAB PO PRN ×6 (02:12→23:35)
[2022-02-10] MEDS: CLINDAMYCIN 600 MG in DEXTROSE 5% IN WATER 50 ML IVPB SCH ×6 (03:06→20:48)
[2022-02-10] MEDS: HYDROmorphone 0.5 MG/0.5 ML SYRINGE IVP PRN (05:18)
[2022-02-10] MEDS: CEFEPIME 2 GM in SODIUM CHLORIDE 0.9% 100 ML IVPB SCH ×2 (05:19→16:42)
[2022-02-10] MEDS: LEVOTHYROXINE 88 MCG TAB PO SCH (06:22)
[2022-02-10] MEDS: PANTOPRAZOLE 40 MG TABLET PO SCH (07:42)
[2022-02-10 08:28] LABS: Basophils # (A) 0.1 k/uL (0-0.2); Basophils % (A) 0 %; Eosinophils # (A) 0.4 k/uL (0-0.7); Eosinophils % (A) 2 %; HCT 38.1 % (34.0-46.0); HGB 12.3 gm/dL (11.4-16.0); Lymphocytes # (A) 1.2 k/uL (1.0-4.8); Lymphocytes % (A) 5 %; MCH 29.8 pg (25.0-35.0); MCHC 32.4 g/dL (31.0-37.0); Mean Platelet Volume 7.1; Monocytes % (A) 4 %; Neutrophils # (A) 19.2 k/uL (1.3-7.7); Neutrophils % (A) 87 %; Platelet Count 598 k/uL (150-450); RBC 4.14 m/uL (3.80-5.40); RDW 14.3 % (11.5-15.5); WBC 22.1 k/uL (3.8-10.6)
[2022-02-10 08:40] LABS: ALT 11 U/L (4-34); AST 15 U/L (14-36); African American GFR (CKD) >90 (>60 ml/min/1.73 sqM); Albumin 3.3 g/dL (3.5-5.0); Albumin/Globulin Ratio 1.1; Alkaline Phosphatase 88 U/L (38-126); Anion Gap 5 mmol/L; Blood Urea Nitrogen 14 mg/dL (7-17); Calcium 9.2 mg/dL (8.4-10.2); Carbon Dioxide 26 mmol/L (22-30); Chloride 103 mmol/L (98-107); Globulin 3.1 g/dL; Glucose 113 mg/dL (74-99); Non-African American GFR(CKD) >90 (>60 ml/min/1.73 sqM); Potassium 4.6 mmol/L (3.5-5.1); Sodium 134 mmol/L (137-145); Total Bilirubin 0.6 mg/dL (0.2-1.3); Total Protein 6.4 g/dL (6.3-8.2)
[2022-02-10] MEDS: FLUTICASONE 110 MCG INHALER INHALATION SCH ×2 (09:44→19:00)
[2022-02-10] MEDS ORDERED: IBUPROFEN 400 MG TAB PO PRN (12:30)
--- NOTE | 2022-02-10 14:27 | XR ---
EXAMINATION TYPE: XR chest 2V DATE OF EXAM: 02/10/2022 COMPARISON: Chest x-ray one day earlier and older studies. Chest CT February 04, 2022 HISTORY: Pneumonia. TECHNIQUE: Frontal and lateral views of the chest are obtained. FINDINGS: There is slightly more prominent left basilar opacity appears to have lower lobe and lingu lar component. Persistent lateral right basilar opacity favoring scarring and/or atelectasis The card iac silhouette size remains within normal limits. The osseous structures are intact. IMPRESSION: Background mild underlying emphysematous change with more prominent left lower lobe infi ltrate and/or atelectasis. An underlying lingular mass or neoplasm is likely present on recent CT. Ad vise PET CT follow-up.
--- NOTE | 2022-02-10 15:50 | P.PN ---
<Daija Salgado M - Last Filed: 02/10/22 15:43> Subjective Progress Note Date: 02/10/22 Principal diagnosis: Left-sided pleuritic chest pain This is a very pleasant 66-year-old female patient who follows with Dr. Bueno as her primary care provider. She has a history of hypothyroidism, a nxiety, gastroesophageal reflux disease. She had tested positive for CoVID in November 2021. She is not vaccinated. She states she did have pneumonia according to her PCP and was treated with antibiotics and steroids. She's had ongoing issues with recurrent shortness of breath, cough and congestion. She felt that was mostly related to the CoVID infection. Yesterday she presented to the emergency with ongoing symptoms and increasing left-sided rib pain. Chest x-ray and CAT scan of the chest revealed evidence of a lingular pneumonia. Some residual effects of the COVID-19 pneumonia. Sputum culture pending. White count 30.6. Hemoglobin 11.1. Platelets 481. Lymphocytes 1.19. D-dimer 0.74. Sodium 136. Potassium 4.5. BUN 16. Creatinine 0.7. Glucose 138. Walter virus by PCR not detected. She's been initiated on ceftriaxone and azithromycin, DuoNeb inhalations, Flovent, IV Solu-Medrol. Lovenox for DVT prophylaxis. She is seen today in consultation on the regular medical floor. She is up ambulating in her room. Awake and alert in no acute distress. Maintaining good O2 saturation up to 100% on 2 L/m per nasal cannula. She's been afebrile. Hemodynamically stable. All of chest x-ray reveals a moderate left-sided pleural effusion with adjacent subsegmental atelectasis versus infection. Background changes of COPD. The patient is seen today 02/06/2022 in follow-up on the regular medical floor. She is currently sitting up in bed. Awake and alert in no acute distress. She is still having some ongoing issues with left-sided chest discomfort. She is requesting Dilaudid and Percocet on a regular basis. She is maintaining O2 saturations in the mid 90s on room air. No desaturations with activity. Blood cultures revealed no growth. Sputum cultures reveal no growth to date. No new labs today. She is continued on DuoNeb inhalations, IV Solu-Medrol, antibiotics in the form of ceftriaxone and azithromycin. Lovenox for DVT prophylaxis. The patient is seen today 02/07/2022 in follow-up on the regular medical floor. She is currently sitting up in bed. Awake and alert in no acute distress. Doing quite a bit better today compared to yesterday. Maintaining good O2 saturations in the mid 90s on room air. She's been afebrile. Hemodynamically stable. Her left-sided chest discomfort has mainly resolved. No worsening shortness of breath, cough or congestion. Blood cultures reveal no growth. Sputum cultures 2 revealed no growth. White count 19. Hemoglobin 9.7. Sodium 142. Potassium 4.5. BUN 18. Creatinine 0.6. She remains on DuoNeb inh alations, IV Solu-Medrol, antibiotics in the form of clindamycin and azithromycin. Lovenox for DVT prophylaxis. Ultrasound of the chest revealed a 2.5 cm pocket of the left pleural effusion. There was tissue seen anteriorly within the pocket. No plans for thoracentesis. The fluid is loculated and possibly an empyema. She had been seen and evaluated by interventional radiology yesterday who recommended a chest tube placement. However the patient received Lovenox yesterday. The patient is seen today 02/08/2022 in follow-up on the regular medical floor. He continues to improve daily. She is maintaining good O2 saturations in the mid 90s on room air. She's been afebrile. Hemodynamically stable. Chest x-ray continues to show a left lower lobe opacity. Unchanged. Sputum culture re vealed no growth. Blood cultures revealed no growth. White count 10.6. Hemoglobin 9.3. Sodium 140. Potassium 4.0. Creatinine 0.6. Urinalysis clear. She remains on antibiotics in the form of cefepime, azithromycin and clindamycin per medicine. Continued on bronchodilators. On 02/09/2022 patient seen in follow-up on medical surgical floor. Today she looks comfortable, she sits up in bed, currently on room air, with pulse ox of 94-98% she's been afebrile, vital signs stable, she still having some left rib chest discomfort, but no acute distress was noted, no worsening shortness of aneta ath. Follow-up chest x-ray today showing mild interstitial prominence, and patchy change at the periphery of the right base, focal airspace opacity at the left base is unchanged. Patient was seen in consultation by CT surgery, and patient is not a candidate for chest tube placement at this time. She continues on cefepime for antibiotic coverage, she is on breathing treatments, she is receiving oral medications for pleuritic chest discomfort. Her blood and sputum cultures have shown no growth. Her labs show significant improvement in her leukocytosis, and her white blood cell count is down to 10.6 compared to 30.6 on 02/05/2022. Hemoglobin is 9.3, electrolytes and renal profile are unremarkable. No altered mentation, no acute distress. Patient was recommended to continue medical treatment right now. On 02/10/2022 patient seen in follow-up on medical surgical floor. She states s he is breathing and feeling much better on today's exam, and left-sided rib pain has improved. However she is requesting Motrin if that's okay to have for pain control. She remains on cefepime for antibiotic coverage. She remains on nebulized bronchodilators. All of her cultures are negative thus far including blood and sputum cultures. Today's labs have been noted, her white blood cell, has noted to be increased and is up to 22.1 on today's labs, hemoglobin is 12.3, sodium is 134, dressed electrolytes were Within normal limits, LFTs are within normal limits, urinalysis was negative. Patient has been afebrile, vital signs have been stable, room air pulse ox is 94 200%. Breathing is nonlabored. Follow-up 2 view chest x-ray has been obtained today showing background mild underlying emphysematous changes with left lower lobe infiltrate. Objective - Vital Signs Vital signs: Vital Signs Temp 98.0 F 02/10/22 14:00 Pulse 124 H 02/10/22 14:00 Resp 18 02/10/22 14:00 BP 109/57 02/10/22 14:00 Pulse Ox 100 02/10/22 14:00 Intake & Output 02/09/22 02/10/22 02/10/22 18:59 06:59 18:59 Weight 59.421 kg Other: Voiding Method Toilet Toilet Toilet - Exam GENERAL EXAM: Alert, very pleasant, 66-year-old white female, on room air with pulse ox of 94-100%, comfortable in no apparent distress. HEAD: Normocephalic/atraumatic. EYES: Normal reaction of pupils, equal size. Conjunctiva pink, sclera white. NOSE: Clear with pink turbinates. THROAT: No erythema or exudates. NECK: No masses, no JVD, no thyroid enlargement, no adenopathy. CHEST: No chest wall deformity. Symmetrical expansion. LUNGS: Diminished breath sounds at the bases CVS: Regular rate and rhythm, normal S1 and S2, no gallops, no murmurs, no rubs ABDOMEN: Soft, nontender. No hepatosplenomegaly, normal bowel sounds, no guarding or rigidity. EXTREMITIES: No clubbing, no edema, no cyanosis, 2+ pulses and upper and lower extremities. MUSCULOSKELETAL: Muscle strength and tone normal. SPINE: No scoliosis or deformity SKIN: No rashes CENTRAL NERVOUS SYSTEM: Alert and oriented -3. No focal deficits, tone is normal in all 4 extremities. PSYCHIATRIC: Alert and oriented -3. Appropriate affect. Intact judgment and insight. - Labs CBC & Chem 7: 02/10/22 08:16 02/10/22 08:16 Labs: Abnormal Lab Results - Last 24 Hours (Table) 02/10/22 02/10/22 Range/Units 08:16 08:16 WBC 22.1 H (3.8-10.6) k/uL Plt Count 598 H (150-450) k/uL Neutrophils # 19.2 H (1.3-7.7) k/uL Sodium 134 L (137-145) mmol/L Glucose 113 H (74-99) mg/dL Albumin 3.3 L (3.5-5.0) g/dL Microbiology - Last 24 Hours (Table) 02/04/22 09:15 Blood Culture - Final Blood No Growth after 144 hours 02/04/22 09:00 Blood Culture - Final Blood No Growth after 144 hours Assessment and Plan Plan: Assessment: #1. Acute community acquired pneumonia involving the lingula, with multi loculated information sent she within the pleural effusion pocket on the left. CT surgery was consulted for possible placement of the chest tube however she is currently not a candidate, and medical treatment was recommended #2. Left-sided chest wall pain secondary to the above, improved #3. COVID 19 infection in November 2021 #4. Hypothyroidism #5. Anxiety #6. GERD/reflux Plan: Patient is feeling and breathing easier Still having left-sided rib pain Continue current antibiotics Follow-up chest x-ray has been obtained showing left basilar opacity and opacity the lingular component, possibly slightly less than on today's film Clinically patient is improving, afebrile Continue cefepime and clindamycin Patient can have Motrin 400 mg every 4 hours as needed for pain We'll add Mucinex Continue nebulized bronchodilators Follow-up chest x-ray tomorrow Follow-up blood work including CBC and BMP Follow-up pro-calcitonin Continue to follow I have personally seen and examined the patient, performed the documentation and the assessment and plan as written. Number of minutes spent on the visit: [10] Time with Patient: Less than 30 <Marifer Mendes - Last Filed: 02/10/22 16:07> Objective - Vital Signs Vital signs: Vital Signs Temp 98.0 F 02/10/22 14:00 Pulse 124 H 02/10/22 14:00 Resp 18 02/10/22 14:00 BP 109/57 02/10/22 14:00 Pulse Ox 100 02/10/22 14:00 Intake & Output 02/09/22 02/10/22 02/10/22 18:59 06:59 18:59 Weight 59.421 kg Other: Voiding Method Toilet Toilet Toilet - Labs CBC & Chem 7: 02/10/22 08:16 02/10/22 08:16 Labs: Abnormal Lab Results - Last 24 Hours (Table) 02/10/22 02/10/22 Range/Units 08:16 08:16 WBC 22.1 H (3.8-10.6) k/uL Plt Count 598 H (150-450) k/uL Neutrophils # 19.2 H (1.3-7.7) k/uL Sodium 134 L (137-145) mmol/L Glucose 113 H (74-99) mg/dL Albumin 3.3 L (3.5-5.0) g/dL Microbiology - Last 24 Hours (Table) 02/04/22 09:15 Blood Culture - Final Blood No Growth after 144 hours 02/04/22 09:00 Blood Culture - Final Blood No Growth after 144 hours Assessment and Plan Plan: I have personally seen and examined the patient and reviewed the documentation. I performed a joint evaluation with the nurse practitioner in this evaluation was done more than 20 minutes. I fully agree with the documentation above and the plan of care.. The patient is clinically improving. Chest x-ray shows improvement in left lung consolidation. A repeat chest x-ray was done tomorrow. Her pleurisy is less. Will follow-up on the pro-calcitonin level. She is still having some sinus tachycardia. The white cell count is elevated and this will be repeated tomorrow. Motrin was added for pain control.
[2022-02-10] MEDS: IBUPROFEN 400 MG TAB PO PRN (17:52)
--- NOTE | 2022-02-10 18:27 | P.PN ---
<Modesto Lindsey - Last Filed: 02/10/22 18:14> Subjective Progress Note Date: 02/10/22 History of Presenting Illness: Patient is a very pleasant 66-year-old female with a past medical history of hypothyroidism, GERD, and recent infection with Covid pneumonia back in November 2021. Patient presented to the emergency department with a chief complaint of shortness of breath and cough. Patient reports full resolution of symptoms from previous Covid infection back in November and approximately 2 weeks ago began developing shortness of breath and cough. 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 Patient reports over the last 2 weeks her symptoms have significantly increased and worsened so she came to the emergency department for evaluation..Labs revealing leukocytosis with WBC count 24.6 with left shift, thrombocytosis with platelet count of 666. Elevated d-dimer at 0.74 with normal troponin at less than 0.012. ProBNP of 169. And hypomagnesemia with magnesium of 1.5. Chest x- ray revealing suspected left lower lobe pneumonia versus consolidation versus collapse. CTA showing no evidence for PE with multifocal pneumonia. EKG showing sinus tachycardia at 133 bpm with no noted T-wave or ST abnormalities. Covid PCR obtained and negative. Patient was admitted to our services with consultation to pulmonology and cardiothoracic surgery. Physical exam: Patient seen and fully evaluated at bedside this morning. She reports continued improvement in her rib pain and breathing. She has remained afebrile, but continues to have episodes of tachycardia 100 to 120s and again this morning showing significant leukocytosis with WBC count of 221 and thrombocytosis with platelet count of 598. Patient placed on subcutaneous heparin for DVT prophylaxis secondary to thrombocytosis. Due to persistent tachycardia and elevation of WBC count, we have not inoculated infection and patient will likely need to have drainage of loculated pleural effusion/empyema. Blood cultures and sputum cultures remain negative to date. At this time patient to continue IV antibiotics with cefepime and clindamycin. Awaiting recommendations from pulmonary and cardiovascular surgery regarding possible drainage of effusion. Vital signs reviewed and stable. General: Nontoxic, no distress and appears stated age. Derm: Skin warm and dry, normal coloration for ethnicity. Head: Atraumatic, normocephalic and symmetric. Eyes: EOMs intact, no lid lag, and anicteric sclera Mouth: no lip lesions, mucus membranes moist Cardiovascular: Tachycardic rate and regular rhythm with normal S1S2, no murmur, positive posterior tibial pulses bilaterally, and cap refill < 2 seconds. Lungs: Respirations even, regular, and unlabored on room air. Lungs diffuse rhonchi left lower lobe, otherwise diminished with with soft expiratory wheezes. Abdominal: soft, nontender to palpation, no guarding, no appreciable organomegaly Ext: ROM intact. No gross muscle atrophy, no edema, no contractures Neuro: Speech clear, face symmetrical and CN II-XII grossly intact with no noted focal neuro deficits Psych: Alert and oriented to person, place, time, and situation. Appropriate and pleasant affect. Assessment and Plan of Care: Multifocal pneumonia Loculated left pleural effusion Left rib pain secondary to above Leukocytosis Thrombocytosis -Oxygenation to be administered and titrated as needed to maintain SPO2 equal to or greater than 92% -Telemetry monitoring. -Monitor Pulse-oximetry -Duonebs as needed for SOB and/or wheezing -Incentive Spirometry, encourage use 10-15 times hourly while awake -Steroids: Completed course of steroids with Solu-Medrol with last dose 02/07/22 -Antibiotics: Cefepime and clindamycin -Sputum culture negative -Blood culture showing no growth after 120 hours -Pulmonology following -Cardiothoracic surgery following -Encourage oral hydration -Symptomatic care and pain management for rib pain. -DVT prophylaxis with heparin Hypothyroidism Continue daily medication regimen with levothyroxine. GERD Continue daily medication regimen with Protonix. CODE STATUS: Full code DVT prophylaxis: SCDs Discussed with: Patient and RN Anticipated discharge date: Clinical course to determine Anticipated discharge place: Home A total of 38 minutes was spent on the care of this complex patient more than 50% of the time was spent in counseling and care coordination. Objective - Vital Signs Vital signs: Vital Signs Temp 97.6 F 02/10/22 01:12 Pulse 130 H 02/10/22 01:12 Resp 20 02/10/22 01:12 BP 105/60 02/10/22 01:12 Pulse Ox 94 L 02/10/22 01:12 Intake & Output 02/09/22 02/10/22 02/10/22 18:59 06:59 18:59 Weight 59.421 kg Other: Voiding Method Toilet Toilet - Labs CBC & Chem 7: 02/10/22 08:16 02/10/22 08:16 Labs: Microbiology - Last 24 Hours (Table) 02/04/22 09:00 Blood Culture - Preliminary Blood No Growth after 120 hours 02/04/22 09:15 Blood Culture - Preliminary Blood No Growth after 120 hours <Rory Song - Last Filed: 02/10/22 18:45> Subjective I reviewed the documentation as provided by the MIRZA above, who is the original author of this note. I agree with the documented assessment and plan, with the following changes: None Objective - Vital Signs Vital signs: Vital Signs Temp 98.0 F 02/10/22 14:00 Pulse 124 H 02/10/22 14:00 Resp 18 02/10/22 14:00 BP 109/57 02/10/22 14:00 Pulse Ox 100 02/10/22 14:00 Intake & Output 02/09/22 02/10/22 02/10/22 18:59 06:59 18:59 Weight 59.421 kg Other: Voiding Method Toilet Toilet Toilet - Labs CBC & Chem 7: 02/10/22 08:16 02/10/22 08:16 Labs: Abnormal Lab Results - Last 24 Hours (Table) 02/10/22 02/10/22 Range/Units 08:16 08:16 WBC 22.1 H (3.8-10.6) k/uL Plt Count 598 H (150-450) k/uL Neutrophils # 19.2 H (1.3-7.7) k/uL Sodium 134 L (137-145) mmol/L Glucose 113 H (74-99) mg/dL Albumin 3.3 L (3.5-5.0) g/dL Microbiology - Last 24 Hours (Table) 02/04/22 09:15 Blood Culture - Final Blood No Growth after 144 hours 02/04/22 09:00 Blood Culture - Final Blood No Growth after 144 hours
[2022-02-10] MEDS: IPRATROPIUM-ALBUTEROL 3 ML NEB INHALATION PRN ×2 (19:00→23:58)
[2022-02-10] MEDS: HEPARIN SODIUM,PORCINE/PF 5,000 UNIT/0.5 ML SYRINGE SQ SCH ×2 (19:20→23:26)
[2022-02-10] MEDS: ALPRAZolam 0.5 MG TAB PO SCH (20:48)
[2022-02-10] MEDS: guaiFENesin 600 MG TABLET.ER PO SCH (20:48)
[2022-02-10] MEDS: AMITRIPTYLINE HCL 25 MG TAB PO SCH (20:48)
[2022-02-11] MEDS: IBUPROFEN 400 MG TAB PO PRN ×6 (01:38→23:54)
[2022-02-11] MEDS: CLINDAMYCIN 600 MG in DEXTROSE 5% IN WATER 50 ML IVPB SCH ×6 (03:51→20:46)
[2022-02-11] MEDS: oxyCODONE-APAP 5-325MG 1 EACH TAB PO PRN ×5 (03:51→21:35)
[2022-02-11] MEDS: CEFEPIME 2 GM in SODIUM CHLORIDE 0.9% 100 ML IVPB SCH ×2 (05:52→17:11)
[2022-02-11] MEDS: LEVOTHYROXINE 88 MCG TAB PO SCH (05:52)
[2022-02-11] MEDS: guaiFENesin 600 MG TABLET.ER PO SCH ×2 (07:17→20:47)
[2022-02-11] MEDS: PANTOPRAZOLE 40 MG TABLET PO SCH (07:17)
[2022-02-11] MEDS: HEPARIN SODIUM,PORCINE/PF 5,000 UNIT/0.5 ML SYRINGE SQ SCH ×3 (07:18→23:31)
--- NOTE | 2022-02-11 08:38 | XR ---
EXAMINATION TYPE: XR chest 2V DATE OF EXAM: 02/11/2022 COMPARISON: Chest x-ray 02/10/2022 HISTORY: Pneumonia, left rib pain TECHNIQUE: Frontal and lateral views of the chest are obtained. FINDINGS: Findings are similar to prior exam. There is abnormal attenuation present in the left lowe r lobe and possibly lingula. Cardiomediastinal silhouette is stable. Aorta is dense. Some patchy incr eased attenuation present at the right cost phrenic angle. There is no evident pneumothorax. IMPRESSION: Correlate for pneumonia. There is underlying emphysema. Possible lung nodule right costo phrenic angle, lingular mass, follow-up is recommended.
[2022-02-11] MEDS: IPRATROPIUM-ALBUTEROL 3 ML NEB INHALATION PRN ×4 (09:33→20:12)
[2022-02-11] MEDS: FLUTICASONE 110 MCG INHALER INHALATION SCH ×2 (09:33→20:12)
[2022-02-11 10:30] LABS: Basophils # (A) 0.07 X 10*3/uL (0.00-0.10); Basophils % (A) 0.3 %; Eosinophils # (A) 0.18 X 10*3/uL (0.04-0.35); Eosinophils % (A) 0.8 %; HCT 34.4 % (37.2-46.3); HGB 10.5 g/dL (12.0-15.0); Immature Grans, Automated 1.5 %; Lymphocytes # (A) 1.09 X 10*3/uL (0.90-5.00); Lymphocytes % (A) 4.9 %; MCH 28.9 pg (27.0-32.0); MCHC 30.5 g/dL (32.0-37.0); MCV 94.8 fL (80.0-97.0); Mean Platelet Volume 9.2 fL (9.5-12.2); Monocytes # (A) 1.96 X 10*3/uL (0.20-1.00); Monocytes % (A) 8.7 %; NRBC Per 100 WBC 0 /100 WBCS (0.0-0.0); Neutrophils % (A) 83.8 %; Platelet Count 459 X 10*3/uL (140-440); RBC 3.63 X 10*6/uL (4.10-5.20); RDW 14.7 % (11.5-14.5); WBC 22.44 X 10*3/uL (4.50-10.00)
[2022-02-11 10:50] LABS: ALT 10 U/L (8-44); AST 9 U/L (13-35); African American GFR (CKD) 78.3 (60.0-200.0); Albumin 3.4 g/dL (3.8-4.9); Albumin/Globulin Ratio 1.48 (1.60-3.17); Alkaline Phosphatase 90 U/L (41-126); BUN/Creat Ratio 19.78 Ratio (12.00-20.00); Blood Urea Nitrogen 17.8 mg/dL (9.0-27.0); Calcium 9.2 mg/dL (8.7-10.3); Carbon Dioxide 24.5 mmol/L (20.0-27.5); Chloride 101 mmol/L (96-109); Globulin 2.3 g/dL (1.6-3.3); Glucose 113 mg/dL (70-110); Non-African American GFR(CKD) 67.6 (60.0-200.0); Potassium 4.7 mmol/L (3.5-5.5); Sodium 136 mmol/L (135-145); Total Bilirubin <0.15 mg/dL (0.30-1.20); Total Protein 5.7 g/dL (6.2-8.2)
[2022-02-11] MEDS ORDERED: RX INFO: IV CONTRAST WAS GIVEN 1 EACH MISC MISCELLANE PRN (11:03)
--- NOTE | 2022-02-11 11:09 | P.PN ---
Subjective Progress Note Date: 02/11/22 This is a very pleasant 66-year-old female patient who follows with Dr. Bueno as her primary care provider. She has a history of hypothyroidism, anxiety, gastroesophageal reflux disease. She had tested positive for CoVID in November 2021. She is not vaccinated. She states she did have pneumonia according to her PCP and was treated with antibiotics and steroids. She's had ongoing issues with recurrent shortness of breath, cough and congestion. She felt that was mostly related to the CoVID infection. Yesterday she presented to the emergency with ongoing symptoms and increasing left-sided rib pain. Chest x-ray and CAT scan of the chest revealed evidence of a lingular pneumonia. Some residual effects of the COVID-19 pneumonia. Sputum culture pending. White count 30.6. Hemoglobin 11.1. Platelets 481. Lymphocytes 1.19. D-dimer 0.74. Sodium 136. Potassium 4.5. BUN 16. Creatinine 0.7. Glucose 138. Walter virus by PCR not detected. She's been initiated on ceftriaxone and a zithromycin, DuoNeb inhalations, Flovent, IV Solu-Medrol. Lovenox for DVT prophylaxis. She is seen today in consultation on the regular medical floor. She is up ambulating in her room. Awake and alert in no acute distress. Maintaining good O2 saturation up to 100% on 2 L/m per nasal cannula. She's been afebrile. Hemodynamically stable. All of chest x-ray reveals a moderate left-sided pleural effusion with adjacent subsegmental atelectasis versus infection. Background changes of COPD. The patient is seen today 02/06/2022 in follow-up on the regular medical floor. She is currently sitting up in bed. Awake and alert in no acute distress. She is still having some ongoing issues with left-sided chest discomfort. She is requesting Dilaudid and Percocet on a regular basis. She is maintaining O2 saturations in the mid 90s on room air. No desaturations with activity. Blood cultures revealed no growth. Sputum cultures reveal no growth to date. No new labs today. She is continued on DuoNeb inhalations, IV Solu-Medrol, antibiotics in the form of ceftriaxone and azithromycin. Lovenox for DVT prophylaxis. The patient is seen today 02/07/2022 in follow-up on the regular medical floor. She is currently sitting up in bed. Awake and alert in no acute distress. Doing quite a bit better today compared to yesterday. Maintaining good O2 saturations in the mid 90s on room air. She's been afebrile. Hemodynamically stable. Her left-sided chest discomfort has mainly resolved. No worsening shortness of breath, cough or congestion. Blood cultures reveal no growth. Sputum cultures 2 revealed no growth. White count 19. Hemoglobin 9.7. Sodium 142. Potassium 4.5. BUN 18. Creatinine 0.6. She remains on DuoNeb inhalations, IV Solu-Medrol, antibiotics in the form of clindamycin and azithromycin. Lovenox for DVT prophylaxis. Ultrasound of the chest revealed a 2.5 cm pocket of the left pleural effusion. There was tissue seen anteriorly within the pocket. No plans for thoracentesis. The fluid is loculated and possibly an empyema. She had been seen and evaluated by interventional radiology yesterday who recommended a chest tube placement. However the patient received Lovenox yesterday. The patient is seen today 02/08/2022 in follow-up on the regular medical floor. He continues to improve daily. She is maintaining good O2 saturations in the mid 90s on room air. She's been afebrile. Hemodynamically stable. Chest x-ray continues to show a left lower lobe opacity. Unchanged. Sputum culture revealed no growth. Blood cultures revealed no growth. White count 10.6. Hemoglobin 9.3. Sodium 140. Potassium 4.0. Creatinine 0.6. Urinalysis clear. She remains on antibiotics in the form of cefepime, azithromycin and clindamycin per medicine. Continued on bronchodilators. On 02/09/2022 patient seen in follow-up on medical surgical floor. Today she looks comfortable, she sits up in bed, currently on room air, with pulse ox of 94-98% she's been afebrile, vital signs stable, she still having some left rib chest discomfort, but no acute distress was noted, no worsening shortness of breath. Follow-up chest x-ray today showing mild interstitial prominence, and patchy change at the periphery of the right base, focal airspace opacity at the left base is unchanged. Patient was seen in consultation by CT surgery, and patient is not a candidate for chest tube placement at this time. She continues on cefepime for antibiotic coverage, she is on breathing treatments, she is receiving oral medications for pleuritic chest discomfort. Her blood and sputum cultures have shown no growth. Her labs show significant improvement in her leukocytosis, and her white blood cell count is down to 10.6 compared to 30.6 on 02/05/2022. Hemoglobin is 9.3, electrolytes and renal profile are unremarkable. No altered mentation, no acute distress. Patient was recommended to continue medical treatment right now. On 02/10/2022 patient seen in follow-up on medical surgical floor. She states she is breathing and feeling much better on today's exam, and left-sided rib pain has improved. However she is requesting Motrin if that's okay to have for pain control. She remains on cefepime for antibiotic coverage. She remains on nebulized bronchodilators. All of her cultures are negative thus far including blood and sputum cultures. Today's labs have been noted, her white blood cell, has noted to be increased and is up to 22.1 on today's labs, hemoglobin is 12.3, sodium is 134, dressed electrolytes were Within normal limits, LFTs are within normal limits, urinalysis was negative. Patient has been afebrile, vital signs have been stable, room air pulse ox is 94 200%. Breathing is nonlabored. Follow-up 2 view chest x-ray has been obtained today showing background mild underlying emphysematous changes with left lower lobe infiltrate. On 02/11/2022, the patient is able to breathe slightly easier. Her pain is subsiding gradually. White cell count remains at 22. Chest x-ray still showing a left lower lobe consolidation. There is no evidence of any effusion. Current antibiotic coverage includes a combination of cefepime and clindamycin. I reviewed the chest x-rays and the patient has no evidence of any effusion. There is stable consolidation of the left lower lobe. The patient obviously is less tachycardic on today's evaluation. Sinus tachycardia is improved. Lopressor all within normal limits. She is ambulating. She is not requiring oxygen therapy at this point in time. She is on room air oxygen with a pulse ox of 94%. Objective - Vital Signs Vital signs: Vital Signs Temp 97.4 F L 02/11/22 07:14 Pulse 68 02/11/22 09:45 Resp 17 02/11/22 07:45 BP 97/64 02/11/22 07:14 Pulse Ox 96 02/11/22 07:14 Intake & Output 02/10/22 02/11/22 02/11/22 18:59 06:59 18:59 Intake Total 1080 950 Balance 1080 950 Intake: Intake, IV Titration 200 Amount Cefepime 2 gm In Sodium 100 Chloride 0.9% 100 ml @ 25 mls/hr IVPB Q12H [facility] Rx# :[id number] Clindamycin 600 mg In 100 Dextrose 5% in Water 50 ml @ 50 mls/hr IVPB Q8H [facility] Rx#:[id number] Oral 1080 750 Other: Voiding Method Toilet Toilet # Voids 4 3 - Exam GENERAL EXAM: Alert, very pleasant, 66-year-old white female, on room air with pulse ox of 94-100%, comfortable in no apparent distress. HEAD: Normocephalic/atraumatic. EYES: Normal reaction of pupils, equal size. Conjunctiva pink, sclera white. NOSE: Clear with pink turbinates. THROAT: No erythema or exudates. NECK: No masses, no JVD, no thyroid enlargement, no adenopathy. CHEST: No chest wall deformity. Symmetrical expansion. LUNGS: Diminished breath sounds at the bases CVS: Regular rate and rhythm, normal S1 and S2, no gallops, no murmurs, no rubs ABDOMEN: Soft, nontender. No hepatosplenomegaly, normal bowel sounds, no guarding or rigidity. EXTREMITIES: No clubbing, no edema, no cyanosis, 2+ pulses and upper and lower extremities. MUSCULOSKELETAL: Muscle strength and tone normal. SPINE: No scoliosis or deformity SKIN: No rashes CENTRAL NERVOUS SYSTEM: Alert and oriented -3. No focal deficits, tone is normal in all 4 extremities. PSYCHIATRIC: Alert and oriented -3. Appropriate affect. Intact judgment and insight. - Labs CBC & Chem 7: 02/11/22 03:09 02/11/22 03:09 Labs: Abnormal Lab Results - Last 24 Hours (Table) 02/11/22 02/11/22 Range/Units 03:09 03:09 WBC 22.44 H (4.50-10.00) X 10*3/uL RBC 3.63 L (4.10-5.20) X 10*6/uL Hgb 10.5 L (12.0-15.0) g/dL Hct 34.4 L (37.2-46.3) % MCHC 30.5 L (32.0-37.0) g/dL RDW 14.7 H (11.5-14.5) % Plt Count 459 H (140-440) X 10*3/uL MPV 9.2 L (9.5-12.2) fL Immature Gran # 0.34 H (0.00-0.04) X 10*3/uL Neutrophils # 18.80 H (1.80-7.70) X 10*3/uL Monocytes # 1.96 H (0.20-1.00) X 10*3/uL Glucose 113 H (70-110) mg/dL Total Bilirubin <0.15 L (0.30-1.20) mg/dL AST 9 L (13-35) U/L Total Protein 5.7 L (6.2-8.2) g/dL Albumin 3.4 L (3.8-4.9) g/dL Albumin/Globulin Ratio 1.48 L (1.60-3.17) g/dL Microbiology - Last 24 Hours (Table) 02/04/22 09:15 Blood Culture - Final Blood No Growth after 144 hours 02/04/22 09:00 Blood Culture - Final Blood No Growth after 144 hours Assessment and Plan Plan: #1. Acute community acquired pneumonia involving the lingula, with multi loculated information sent she within the pleural effusion pocket on the left. CT surgery was consulted for possible placement of the chest tube however she is currently not a candidate, and medical treatment was recommended #2. Left-sided chest wall pain secondary to the above, improved #3. COVID 19 infection in November 2021 #4. Hypothyroidism #5. Anxiety #6. GERD/reflux Plan: Persistent consolidation of the left lower lobe and for that reason we'll going to repeat a computed tomography scan of the chest with contrast Continue same antibiotic Pain is subsiding Sinus tachycardias including Awaiting a calcitonin level May need a bronchoscopy there is ongoing concern of a left lower lobe atelectasis Patient is feeling and breathing easier Continue to follow
--- NOTE | 2022-02-11 17:01 | CT ---
EXAMINATION TYPE: CT chest w con DATE OF EXAM: 02/11/2022 COMPARISON: Chest x-ray same date, ultrasound dated 02/06/2022 HISTORY: Left lower lung consolidation. CT DLP: 223 mGycm Automated exposure control for dose reduction was used. CONTRAST: CT scan of the chest is performed with IV Contrast, patient injected with 100ml mL of Isovue 300. FINDINGS: LUNGS: Emphysematous changes are present within the lungs. There is multilocular left pleural effusio n seen at the posterior left lung base, there is also fluid present along the anterior aspect of the left lung base with multiple locules, attachment to the epicardial region on the left. Anterior colle ction measures approximately 8.2 cm x 5.2 cm x 7 cm in cephalad to caudal dimension. Posterior collec tion is crescentic in shape and shows a measurement of 4.7 cm in transverse dimension by 7.8 cm media lly adjacent to the aorta by 8 cm in cephalad to caudal dimension medially and approximately 8.5 cm i n AP dimension laterally by only 2 cm in width, 5 cm in cephalad to caudal dimension. Some associated atelectatic lung, possible pneumonia change present at the left lung base. Bandlike areas of probabl e atelectasis or scarring are present bilaterally. No evident pericardial effusion. The tracheobronch ial tree is patent. MEDIASTINUM: There is mediastinal adenopathy, prevascular nodes are present, aorticopulmonary window adenopathy seen. Calcification is present along the anterior mediastinum which shows a coarse benign nonaggressive appearance AORTA: 4 super aortic branch vessels are present.. OTHER: There is a spinal curvature. Multilevel thoracic spondylosis is present.. IMPRESSION: Multilocular parapneumonic pleural effusion on the left,
--- NOTE | 2022-02-11 17:53 | P.PN ---
Subjective Progress Note Date: 02/11/22 History of Presenting Illness: Patient is a very pleasant 66-year-old female with a past medical history of hypothyroidism, GERD, and recent infection with Covid pneumonia back in November 2021. Patient presented to the emergency department with a chief complaint of shortness of breath and cough. Patient reports full resolution of symptoms from previous Covid infection back in November and approximately 2 weeks ago began developing shortness of breath and cough. 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 Patient reports over the last 2 weeks her symptoms have significantly increased and worsened so she came to the emergency department for evaluation..Labs revealing leukocytosis with WBC count 24.6 with left shift, thrombocytosis with platelet count of 666. Elevated d-dimer at 0.74 with normal troponin at less than 0.012. ProBNP of 169. And hypomagnesemia with magnesium of 1.5. Chest x- ray revealing suspected left lower lobe pneumonia versus consolidation versus collapse. CTA showing no evidence for PE with multifocal pneumonia. EKG showing sinus tachycardia at 133 bpm with no noted T-wave or ST abnormalities. Covid PCR obtained and negative. Patient was admitted to our services with consultation to pulmonology and cardiothoracic surgery. Physical exam: Patient seen and fully evaluated at bedside this morning. Patient continues to have improvements in reports of her pain and breathing. WBC count remains significantly elevated at 22.44. Morning x-ray reviewed similar to previous exams revealing left lower lobe consolidation consistent with pneumonia along with underlying emphysema. Patient remains afebrile and heart rate better controlled today. At this time patient remains on cefepime and clindamycin. Infectious disease consulted and appreciate their recommendations. Sputum and blood cultures negative. Vital signs reviewed and stable. General: Nontoxic, no distress and appears stated age. Derm: Skin warm and dry, normal coloration for ethnicity. Head: Atraumatic, normocephalic and symmetric. Eyes: EOMs intact, no lid lag, and anicteric sclera Mouth: no lip lesions, mucus membranes moist Cardiovascular: Tachycardic rate and regular rhythm with normal S1S2, no murmur, positive posterior tibial pulses bilaterally, and cap refill < 2 seconds. Lungs: Respirations even, regular, and unlabored on room air. Lungs diffuse rhonchi left lower lobe, otherwise diminished with with soft expiratory wheezes. Abdominal: soft, nontender to palpation, no guarding, no appreciable organomegaly Ext: ROM intact. No gross muscle atrophy, no edema, no contractures Neuro: Speech clear, face symmetrical and CN II-XII grossly intact with no noted focal neuro deficits Psych: Alert and oriented to person, place, time, and situation. Appropriate and pleasant affect. Assessment and Plan of Care: Multifocal pneumonia Loculated left pleural effusion Left rib pain secondary to above Leukocytosis Thrombocytosis -Oxygenation to be administered and titrated as needed to maintain SPO2 equal to or greater than 92% -Telemetry monitoring. -Monitor Pulse-oximetry -Duonebs as needed for SOB and/or wheezing -Incentive Spirometry, encourage use 10-15 times hourly while awake -Steroids: Completed course of steroids with Solu-Medrol with last dose 02/07/22 -Antibiotics: Cefepime and clindamycin -Sputum culture negative -Blood culture showing no growth [id number] hours -Pulmonology following -Cardiothoracic surgery following -Encourage oral hydration -Symptomatic care and pain management for rib pain. -DVT prophylaxis with heparin -Consult infectious disease Hypothyroidism Continue daily medication regimen with levothyroxine. GERD Continue daily medication regimen with Protonix. CODE STATUS: Full code DVT prophylaxis: SCDs Discussed with: Patient and RN Anticipated discharge date: Clinical course to determine Anticipated discharge place: Home A total of 40 minutes was spent on the care of this complex patient more than 50% of the time was spent in counseling and care coordination. I reviewed the documentation as provided by the MIRZA above, who is the original author of this note. I agree with the documented assessment and plan, with the following changes: None Objective - Vital Signs Vital signs: Vital Signs Temp 97.4 F L 02/11/22 07:14 Pulse 98 02/11/22 07:14 Resp 17 02/11/22 07:14 BP 97/64 02/11/22 07:14 Pulse Ox 96 02/11/22 07:14 Intake & Output 02/10/22 02/11/22 02/11/22 18:59 06:59 18:59 Intake Total 1080 950 Balance 1080 950 Intake: Intake, IV Titration 200 Amount Cefepime 2 gm In Sodium 100 Chloride 0.9% 100 ml @ 25 mls/hr IVPB Q12H [facility] Rx# :[id number] Clindamycin 600 mg In 100 Dextrose 5% in Water 50 ml @ 50 mls/hr IVPB Q8H [facility] Rx#:[id number] Oral 1080 750 Other: Voiding Method Toilet # Voids 4 3 - Labs CBC & Chem 7: 02/11/22 03:09 02/11/22 03:09 Labs: Abnormal Lab Results - Last 24 Hours (Table) 02/10/22 02/10/22 Range/Units 08:16 08:16 WBC 22.1 H (3.8-10.6) k/uL Plt Count 598 H (150-450) k/uL Neutrophils # 19.2 H (1.3-7.7) k/uL Sodium 134 L (137-145) mmol/L Glucose 113 H (74-99) mg/dL Albumin 3.3 L (3.5-5.0) g/dL Microbiology - Last 24 Hours (Table) 02/04/22 09:15 Blood Culture - Final Blood No Growth after 144 hours 02/04/22 09:00 Blood Culture - Final Blood No Growth after 144 hours
[2022-02-11] MEDS: ALPRAZolam 0.5 MG TAB PO SCH (20:46)
[2022-02-11] MEDS: AMITRIPTYLINE HCL 25 MG TAB PO SCH (20:47)
[2022-02-12] MEDS: oxyCODONE-APAP 5-325MG 1 EACH TAB PO PRN ×5 (01:35→21:12)
[2022-02-12] MEDS: IPRATROPIUM-ALBUTEROL 3 ML NEB INHALATION PRN ×5 (03:19→21:51)
[2022-02-12] MEDS: CLINDAMYCIN 600 MG in DEXTROSE 5% IN WATER 50 ML IVPB SCH ×8 (03:21→22:10)
[2022-02-12] MEDS: CEFEPIME 2 GM in SODIUM CHLORIDE 0.9% 100 ML IVPB SCH ×2 (06:06→17:06)
[2022-02-12] MEDS: LEVOTHYROXINE 88 MCG TAB PO SCH (06:07)
[2022-02-12] MEDS: FLUTICASONE 110 MCG INHALER INHALATION SCH ×2 (07:43→21:51)
[2022-02-12] MEDS: guaiFENesin 600 MG TABLET.ER PO SCH ×2 (08:05→21:11)
[2022-02-12] MEDS: HEPARIN SODIUM,PORCINE/PF 5,000 UNIT/0.5 ML SYRINGE SQ SCH ×3 (08:05→23:44)
[2022-02-12] MEDS: PANTOPRAZOLE 40 MG TABLET PO SCH (08:05)
[2022-02-12] MEDS: IBUPROFEN 400 MG TAB PO PRN ×3 (08:05→19:51)
[2022-02-12 10:02] LABS: Basophils % (A) 0 %; Eosinophils # (A) 0.3 k/uL (0-0.7); Eosinophils % (A) 2 %; HCT 32.3 % (34.0-46.0); HGB 10.3 gm/dL (11.4-16.0); Hypochromasia Slight; Lymphocytes # (A) 0.8 k/uL (1.0-4.8); Lymphocytes % (A) 6 %; MCH 29.8 pg (25.0-35.0); MCHC 31.8 g/dL (31.0-37.0); MCV 93.8 fL (80.0-100.0); Mean Platelet Volume 7.2; Monocytes # (A) 1.1 k/uL (0-1.0); Monocytes % (A) 8 %; Neutrophils # (A) 12.3 k/uL (1.3-7.7); Neutrophils % (A) 84 %; Platelet Count 464 k/uL (150-450); RBC 3.44 m/uL (3.80-5.40); RDW 14.2 % (11.5-15.5); WBC 14.7 k/uL (3.8-10.6)
[2022-02-12 10:16] LABS: ALT 11 U/L (4-34); AST 14 U/L (14-36); African American GFR (CKD) >90 (>60 ml/min/1.73 sqM); Albumin 3.1 g/dL (3.5-5.0); Alkaline Phosphatase 100 U/L (38-126); Anion Gap 6 mmol/L; Blood Urea Nitrogen 15 mg/dL (7-17); Calcium 9.1 mg/dL (8.4-10.2); Carbon Dioxide 25 mmol/L (22-30); Chloride 107 mmol/L (98-107); Globulin 3.1 g/dL; Glucose 97 mg/dL (74-99); Non-African American GFR(CKD) >90 (>60 ml/min/1.73 sqM); Potassium 4.3 mmol/L (3.5-5.1); Sodium 138 mmol/L (137-145); Total Bilirubin 0.3 mg/dL (0.2-1.3); Total Protein 6.2 g/dL (6.3-8.2)
[2022-02-12 10:29] LABS: Prothrombin Time 11.1 sec (9.0-12.0)
--- NOTE | 2022-02-12 10:35 | P.PN ---
Subjective Progress Note Date: 02/12/22 Pt doing well today on room air. Seen in room with pulmonary and CT surgery. Care plan discussed with daughter on the phone and with IR. Plan for pigtail catheter placement into posterior fluid collection on the left, then alteplase injection. Ongoing IV abx. Gen: awake, alert HEENT: normocephalic, atraumatic, good hearing acuity, moist mucous membranes Resp: good air exchange, breathing comfortably with no accessory muscle use CVS: good distal perfusion x 4, GI: soft, NTTP, ND : no SPT, no CVAT, conteh catheter not present MSK: no pitting edema, no clubbing Neuro: non-focal, moving all extremities Psych: cooperative, euthymic mood Assessment/Plan: Multifocal pneumonia Loculated left pleural effusion Left rib pain secondary to above -Oxygenation, telemetry. -Duonebs as needed for SOB and/or wheezing -Incentive Spirometry, encourage use 10-15 times hourly while awake -Steroids: Completed course of steroids with Solu-Medrol with last dose 02/07/22 -Antibiotics: Cefepime and clindamycin; ID consulted, could likely de-escalate clindamycin -Sputum culture negative -Blood culture showing no growth after 144 hours -Pulmonology following -Cardiothoracic surgery following -IR consult for pigtail placement, plan for tPA today -Pain control Hypothyroidism levothyroxine. GERD Protonix. CODE STATUS: Full code DVT prophylaxis: heparin Objective - Vital Signs Vital signs: Vital Signs Temp 98.6 F 02/12/22 02:00 Pulse 92 02/12/22 07:55 Resp 18 02/12/22 07:55 BP 95/63 02/12/22 02:00 Pulse Ox 95 02/12/22 02:00 Intake & Output 02/11/22 02/12/22 02/12/22 18:59 06:59 18:59 Other: Voiding Method Toilet # Voids 3 - Labs CBC & Chem 7: 02/12/22 09:39 02/12/22 09:39 Labs: Abnormal Lab Results - Last 24 Hours (Table) 02/11/22 02/11/22 02/12/22 Range/Units 03:09 03:09 09:39 WBC 22.44 H 14.7 H (4.50-10.00) X 10*3/uL RBC 3.63 L 3.44 L (4.10-5.20) X 10*6/uL Hgb 10.5 L 10.3 L (12.0-15.0) g/dL Hct 34.4 L 32.3 L (37.2-46.3) % MCHC 30.5 L (32.0-37.0) g/dL RDW 14.7 H (11.5-14.5) % Plt Count 459 H 464 H (140-440) X 10*3/uL MPV 9.2 L (9.5-12.2) fL Immature Gran # 0.34 H (0.00-0.04) X 10*3/uL Neutrophils # 18.80 H 12.3 H (1.80-7.70) X 10*3/uL Lymphocytes # 0.8 L (1.0-4.8) k/uL Monocytes # 1.96 H 1.1 H (0.20-1.00) X 10*3/uL Glucose 113 H (70-110) mg/dL Total Bilirubin <0.15 L (0.30-1.20) mg/dL AST 9 L (13-35) U/L Total Protein 5.7 L (6.2-8.2) g/dL Albumin 3.4 L (3.8-4.9) g/dL Albumin/Globulin Ratio 1.48 L (1.60-3.17) g/dL 02/12/22 Range/Units 09:39 WBC (4.50-10.00) X 10*3/uL RBC (4.10-5.20) X 10*6/uL Hgb (12.0-15.0) g/dL Hct (37.2-46.3) % MCHC (32.0-37.0) g/dL RDW (11.5-14.5) % Plt Count (140-440) X 10*3/uL MPV (9.5-12.2) fL Immature Gran # (0.00-0.04) X 10*3/uL Neutrophils # (1.80-7.70) X 10*3/uL Lymphocytes # (1.0-4.8) k/uL Monocytes # (0.20-1.00) X 10*3/uL Glucose (70-110) mg/dL Total Bilirubin (0.30-1.20) mg/dL AST (13-35) U/L Total Protein 6.2 L (6.2-8.2) g/dL Albumin 3.1 L (3.8-4.9) g/dL Albumin/Globulin Ratio (1.60-3.17) g/dL
--- NOTE | 2022-02-12 14:49 | P.PN ---
Subjective Progress Note Date: 02/12/22 This is a very pleasant 66-year-old female patient who follows with Dr. Bueno as her primary care provider. She has a history of hypothyroidism, anxiety, gastroesophageal reflux disease. She had tested positive for CoVID in November 2021. She is not vaccinated. She states she did have pneumonia according to her PCP and was treated with antibiotics and steroids. She's had ongoing issues with recurrent shortness of breath, cough and congestion. She felt that was mostly related to the CoVID infection. Yesterday she presented to the emergency with ongoing symptoms and increasing left-sided rib pain. Chest x-ray and CAT scan of the chest revealed evidence of a lingular pneumonia. Some residual effects of the COVID-19 pneumonia. Sputum culture pending. White count 30.6. Hemoglobin 11.1. Platelets 481. Lymphocytes 1.19. D-dimer 0.74. Sodium 136. Potassium 4.5. BUN 16. Creatinine 0.7. Glucose 138. Walter virus by PCR not detected. She's been initiated on ceftriaxone and a zithromycin, DuoNeb inhalations, Flovent, IV Solu-Medrol. Lovenox for DVT prophylaxis. She is seen today in consultation on the regular medical floor. She is up ambulating in her room. Awake and alert in no acute distress. Maintaining good O2 saturation up to 100% on 2 L/m per nasal cannula. She's been afebrile. Hemodynamically stable. All of chest x-ray reveals a moderate left-sided pleural effusion with adjacent subsegmental atelectasis versus infection. Background changes of COPD. The patient is seen today 02/06/2022 in follow-up on the regular medical floor. She is currently sitting up in bed. Awake and alert in no acute distress. She is still having some ongoing issues with left-sided chest discomfort. She is requesting Dilaudid and Percocet on a regular basis. She is maintaining O2 saturations in the mid 90s on room air. No desaturations with activity. Blood cultures revealed no growth. Sputum cultures reveal no growth to date. No new labs today. She is continued on DuoNeb inhalations, IV Solu-Medrol, antibiotics in the form of ceftriaxone and azithromycin. Lovenox for DVT prophylaxis. The patient is seen today 02/07/2022 in follow-up on the regular medical floor. She is currently sitting up in bed. Awake and alert in no acute distress. Doing quite a bit better today compared to yesterday. Maintaining good O2 saturations in the mid 90s on room air. She's been afebrile. Hemodynamically stable. Her left-sided chest discomfort has mainly resolved. No worsening shortness of breath, cough or congestion. Blood cultures reveal no growth. Sputum cultures 2 revealed no growth. White count 19. Hemoglobin 9.7. Sodium 142. Potassium 4.5. BUN 18. Creatinine 0.6. She remains on DuoNeb inhalations, IV Solu-Medrol, antibiotics in the form of clindamycin and azithromycin. Lovenox for DVT prophylaxis. Ultrasound of the chest revealed a 2.5 cm pocket of the left pleural effusion. There was tissue seen anteriorly within the pocket. No plans for thoracentesis. The fluid is loculated and possibly an empyema. She had been seen and evaluated by interventional radiology yesterday who recommended a chest tube placement. However the patient received Lovenox yesterday. The patient is seen today 02/08/2022 in follow-up on the regular medical floor. He continues to improve daily. She is maintaining good O2 saturations in the mid 90s on room air. She's been afebrile. Hemodynamically stable. Chest x-ray continues to show a left lower lobe opacity. Unchanged. Sputum culture revealed no growth. Blood cultures revealed no growth. White count 10.6. Hemoglobin 9.3. Sodium 140. Potassium 4.0. Creatinine 0.6. Urinalysis clear. She remains on antibiotics in the form of cefepime, azithromycin and clindamycin per medicine. Continued on bronchodilators. On 02/09/2022 patient seen in follow-up on medical surgical floor. Today she looks comfortable, she sits up in bed, currently on room air, with pulse ox of 94-98% she's been afebrile, vital signs stable, she still having some left rib chest discomfort, but no acute distress was noted, no worsening shortness of breath. Follow-up chest x-ray today showing mild interstitial prominence, and patchy change at the periphery of the right base, focal airspace opacity at the left base is unchanged. Patient was seen in consultation by CT surgery, and patient is not a candidate for chest tube placement at this time. She continues on cefepime for antibiotic coverage, she is on breathing treatments, she is receiving oral medications for pleuritic chest discomfort. Her blood and sputum cultures have shown no growth. Her labs show significant improvement in her leukocytosis, and her white blood cell count is down to 10.6 compared to 30.6 on 02/05/2022. Hemoglobin is 9.3, electrolytes and renal profile are unremarkable. No altered mentation, no acute distress. Patient was recommended to continue medical treatment right now. On 02/10/2022 patient seen in follow-up on medical surgical floor. She states she is breathing and feeling much better on today's exam, and left-sided rib pain has improved. However she is requesting Motrin if that's okay to have for pain control. She remains on cefepime for antibiotic coverage. She remains on nebulized bronchodilators. All of her cultures are negative thus far including blood and sputum cultures. Today's labs have been noted, her white blood cell, has noted to be increased and is up to 22.1 on today's labs, hemoglobin is 12.3, sodium is 134, dressed electrolytes were Within normal limits, LFTs are within normal limits, urinalysis was negative. Patient has been afebrile, vital signs have been stable, room air pulse ox is 94 200%. Breathing is nonlabored. Follow-up 2 view chest x-ray has been obtained today showing background mild underlying emphysematous changes with left lower lobe infiltrate. On 02/11/2022, the patient is able to breathe slightly easier. Her pain is subsiding gradually. White cell count remains at 22. Chest x-ray still showing a left lower lobe consolidation. There is no evidence of any effusion. Current antibiotic coverage includes a combination of cefepime and clindamycin. I reviewed the chest x-rays and the patient has no evidence of any effusion. There is stable consolidation of the left lower lobe. The patient obviously is less tachycardic on today's evaluation. Sinus tachycardia is improved. Lopressor all within normal limits. She is ambulating. She is not requiring oxygen therapy at this point in time. She is on room air oxygen with a pulse ox of 94%. 02/12/2022, patient is being seen for a follow-up. Note that the patient came in with extensive left lung pneumonia/lingular consolidation in addition to extensive aortic left-sided chest pain. Subsequent chest x-ray was still showing persistent infiltration of the left lung. The patient's white cell count remained elevated at 22 and gradually dropped down to 14 on today's evaluation. The patient was quite tachycardic and she improved and she seems to be much less tachycardic on today's evaluation. Meanwhile, a repeat computed tomography scan of the chest was done today and the patient was found to have development of a loculated left-sided pleural effusion. There is a new finding compared to the previous CAT scan of the chest that was done on 02/04/2022. There is development of a multilocular committed left-sided pleural effusion and a posterior left lung base. There is also presence of an anterior aspect collection with multiple local fuel extending to the epicardial lesion on the left. The anterior collection is measuring 8 x 5 cm in size cephalad to caudad dimension. I think this represents an area of consolidation with development of some loculated fluid within the area of consolidation. There is also atelectatic lung adjacent to the area of consolidation. As such, the presentation is highly consistent with left lung pneumonia with a complicated p arapneumonic effusion. The patient remains on the same antibiotic coverage. The patient on a combination of cefepime and clindamycin. Based on all this, I discussed the case with the cardiothoracic surgeon and also discussed the case with the interventional radiologist. The plan is to proceed with a pigtail catheter insertion on the left with her today in the posterior loculated parapneumonic left-sided pleural effusion. Clinically, the patient is doing well. Most of the skin shortness of breath. I went also over the pictures in the images with the daughter and explained to her the condition and the plan of treatment. On today's evaluation, the white cell count is at 14.7 with a hemo globin of 10 and the rest of the electrodes are all within normal limits. Objective - Vital Signs Vital signs: Vital Signs Temp 98.4 F 02/12/22 08:00 Pulse 107 H 02/12/22 14:25 Resp 16 02/12/22 14:25 BP 132/64 02/12/22 14:25 Pulse Ox 97 02/12/22 14:25 Intake & Output 02/11/22 02/12/22 02/12/22 18:59 06:59 18:59 Weight 59.421 kg Other: Voiding Method Toilet Toilet # Voids 3 - Exam GENERAL EXAM: Alert, very pleasant, 66-year-old white female, on room air with pulse ox of 94-100%, comfortable in no apparent distress. HEAD: Normocephalic/atraumatic. EYES: Normal reaction of pupils, equal size. Conjunctiva pink, sclera white. NOSE: Clear with pink turbinates. THROAT: No erythema or exudates. NECK: No masses, no JVD, no thyroid enlargement, no adenopathy. CHEST: No chest wall deformity. Symmetrical expansion. LUNGS: Diminished breath sounds at the bases CVS: Regular rate and rhythm, normal S1 and S2, no gallops, no murmurs, no rubs ABDOMEN: Soft, nontender. No hepatosplenomegaly, normal bowel sounds, no guar ding or rigidity. EXTREMITIES: No clubbing, no edema, no cyanosis, 2+ pulses and upper and lower extremities. MUSCULOSKELETAL: Muscle strength and tone normal. SPINE: No scoliosis or deformity SKIN: No rashes CENTRAL NERVOUS SYSTEM: Alert and oriented -3. No focal deficits, tone is normal in all 4 extremities. PSYCHIATRIC: Alert and oriented -3. Appropriate affect. Intact judgment and insight. - Labs CBC & Chem 7: 02/12/22 09:39 02/12/22 09:39 Labs: Abnormal Lab Results - Last 24 Hours (Table) 02/12/22 02/12/22 Range/Units 09:39 09:39 WBC 14.7 H (3.8-10.6) k/uL RBC 3.44 L (3.80-5.40) m/uL Hgb 10.3 L (11.4-16.0) gm/dL Hct 32.3 L (34.0-46.0) % Plt Count 464 H (150-450) k/uL Neutrophils # 12.3 H (1.3-7.7) k/uL Lymphocytes # 0.8 L (1.0-4.8) k/uL Monocytes # 1.1 H (0-1.0) k/uL Total Protein 6.2 L (6.3-8.2) g/dL Albumin 3.1 L (3.5-5.0) g/dL Assessment and Plan Plan: #1. Acute community acquired pneumonia involving the lingula, with multi loculated pleural effusion on the left and there is a development of a complex pleural effusion, loculated in the left lung base. There is also area of consolidation and possibly some loculated lobe use of fluid anteriorly along the left lung. There is also some atelectatic changes involving the left lung adjacent to the area of consolidation. The patient remains on a combination of Cefepime and clindamycin. The patient's white cell count is improving. The patient is less tachycardic on today's evaluation. The plan is to proceed with a IR guided pigtail catheter to drain the left lower lobe posteriorly loculated pleural effusion. #2. Left-sided chest wall pain secondary to the above, improved #3. COVID 19 infection in November 2021 #4. Hypothyroidism #5. Anxiety #6. GERD/reflux Plan: Discussed the case with interventional radiology and CT surgery Pigtail catheter to drain the left sided loculated pleural effusion and the fluid will be sent for analysis May need also placed treatment through the pigtail catheter Continue same antibiotic Pain is subsiding Sinus tachycardias is improved White cell count is improved Awaiting a calcitonin level May need a bronchoscopy there is ongoing concern of a left lower lobe atelectasis Patient is feeling and breathing easier Continue to follow
--- NOTE | 2022-02-12 15:56 | XR ---
EXAMINATION TYPE: XR chest 1V portable DATE OF EXAM: 02/12/2022 CLINICAL HISTORY: Post left-sided thoracentesis. TECHNIQUE: Single AP portable frontal view of the chest is obtained. COMPARISON: Chest x-ray and CT chest from one day earlier FINDINGS: No pneumothorax after left-sided thoracentesis. Persistent left basilar opacity. Persisten t lateral right basilar linear scarring and/or atelectasis. Cardiac silhouette size stable and within normal limits. Underlying scoliosis redemonstrated. IMPRESSION: No pneumothorax after left-sided thoracentesis. Persistent left lower lung acute infiltra te and/or atelectasis and likely some residual left pleural fluid collection.
--- NOTE | 2022-02-12 15:59 | US ---
Ultrasound-guided thoracentesis EXAMINATION TYPE: US FNA first lesion DATE OF EXAM: 02/12/2022 COMPARISON: CT chest 02/11/2022 HISTORY: Pleural effusion. FINDINGS: Maximal barrier technique was utilized. The skin overlying a suitable pocket of fluid was localized and the overlying skin prepped and draped. Lidocaine was used for local anesthesia. Ultras ound was used with sterile technique. A 21-gauge needle was advanced into the pleural fluid collecti on using ultrasound guidance and only approximately 1 cc of serous fluid were aspirated and sent for culture. There is no immediate complication. The patient discharged in stable condition without com plication. IMPRESSION: STATUS POST ULTRASOUND GUIDED THORACENTESIS, POST PROCEDURE CHEST X-RAY PENDING. THIS TX OCEDURE WAS PERFORMED BY THE UNDERSIGNED.
[2022-02-12] MEDS: ALPRAZolam 0.5 MG TAB PO SCH (21:11)
[2022-02-12] MEDS: AMITRIPTYLINE HCL 25 MG TAB PO SCH (21:11)
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
[2022-02-13] MEDS: oxyCODONE-APAP 5-325MG 1 EACH TAB PO PRN ×5 (02:46→22:19)
[2022-02-13] MEDS: CLINDAMYCIN 600 MG in DEXTROSE 5% IN WATER 50 ML IVPB SCH ×6 (05:11→22:20)
[2022-02-13] MEDS: LEVOTHYROXINE 88 MCG TAB PO SCH (06:20)
[2022-02-13] MEDS: CEFEPIME 2 GM in SODIUM CHLORIDE 0.9% 100 ML IVPB SCH ×2 (06:20→17:55)
[2022-02-13] MEDS: guaiFENesin 600 MG TABLET.ER PO SCH ×2 (08:04→20:26)
[2022-02-13] MEDS: PANTOPRAZOLE 40 MG TABLET PO SCH (08:04)
[2022-02-13] MEDS: HEPARIN SODIUM,PORCINE/PF 5,000 UNIT/0.5 ML SYRINGE SQ SCH ×2 (08:04→16:10)
[2022-02-13] MEDS: IPRATROPIUM-ALBUTEROL 3 ML NEB INHALATION PRN ×4 (08:42→20:46)
[2022-02-13] MEDS: FLUTICASONE 110 MCG INHALER INHALATION SCH ×2 (08:43→20:46)
--- NOTE | 2022-02-13 10:22 | P.PN ---
Subjective Progress Note Date: 02/13/22 Pt doing well today on room air. Had a thoracentesis yesterday with 1cc of fluid pulled out. Pt did not undergo pigtail catheter placement as anticipated. Cultures sent, pending results. Gen: awake, alert HEENT: normocephalic, atraumatic, good hearing acuity, moist mucous membranes Resp: good air exchange, breathing comfortably with no accessory muscle use CVS: good distal perfusion x 4, GI: soft, NTTP, ND : no SPT, no CVAT, conteh catheter not present MSK: no pitting edema, no clubbing Neuro: non-focal, moving all extremities Psych: cooperative, euthymic mood Assessment/Plan: Multifocal pneumonia Loculated left pleural effusion Left rib pain secondary to above -Oxygenation, telemetry. -Duonebs as needed for SOB and/or wheezing -Incentive Spirometry, encourage use 10-15 times hourly while awake -Steroids: Completed course of steroids with Solu-Medrol with last dose 02/07/22 -Antibiotics: Cefepime and clindamycin; ID consulted, could likely de-escalate clindamycin -Sputum culture negative -Blood culture showing no growth after 144 hours -Pulmonology following -Cardiothoracic surgery following -IR consult for pigtail placement, plan for tPA today -Pain control Hypothyroidism levothyroxine. GERD Protonix. CODE STATUS: Full code DVT prophylaxis: heparin Objective - Vital Signs Vital signs: Vital Signs Temp 100.2 F H 02/13/22 08:00 Pulse 90 02/13/22 08:53 Resp 18 02/13/22 08:53 BP 123/73 02/13/22 08:00 Pulse Ox 98 02/13/22 08:00 Intake & Output 02/12/22 02/13/22 02/13/22 18:59 06:59 18:59 Weight 59.421 kg Other: Voiding Method Toilet # Voids 4 4 - Labs CBC & Chem 7: 02/12/22 09:39 02/12/22 09:39 Labs: Abnormal Lab Results - Last 24 Hours (Table) 02/11/22 Range/Units 03:09 Procalcitonin 0.21 H (0.02-0.09) ng/mL Microbiology - Last 24 Hours (Table) 02/12/22 15:34 Gram Stain - Preliminary Pleural Fluid Body Fluid Culture - Preliminary 02/12/22 15:34 Fungal Culture - Preliminary Pleural Fluid 02/12/22 15:34 Acid Fast Bacilli Culture - Preliminary Pleural Fluid
[2022-02-13] MEDS: HYDROcodone/APAP 5-325MG 1 EACH TAB PO PRN ×3 (11:40→20:26)
--- NOTE | 2022-02-13 13:34 | XR ---
EXAMINATION TYPE: XR chest 1V portable DATE OF EXAM: 02/13/2022 CLINICAL HISTORY: Difficulty breathing and pneumonia progress study. TECHNIQUE: Single AP portable upright view of the chest is obtained. COMPARISON: Chest x-ray from one day earlier and older studies. FINDINGS: Some improved aeration left lower lung. Right lung base shows improved aeration laterally. No new focal airspace opacity. Cardiac sludge size remains within normal limits. Osseous structures are intact. IMPRESSION: Improved left lower lung pneumonic infiltrate. Improved right lateral basilar atelectatic change. No new infiltrate seen.
--- NOTE | 2022-02-13 14:14 | P.PN ---
Subjective Progress Note Date: 02/13/22 Principal diagnosis: Community-acquired pneumonia This is a very pleasant 66-year-old female patient who follows with Dr. Bueno as her primary care provider. She has a history of hypothyroidism, anxiety, gastroesophageal reflux disease. She had tested positive for CoVID in November 2021. She is not vaccinated. She states she did have pneumonia according to her PCP and was treated with antibiotics and steroids. She's had ongoing issues with recurrent shortness of breath, cough and congestion. She felt that was mostly related to the CoVID infection. Yesterday she presented to the emergency with ongoing symptoms and increasing left-sided rib pain. Chest x-ray and CAT scan of the chest revealed evidence of a lingular pneumonia. Some residual effects of the COVID-19 pneumonia. Sputum culture pending. White count 30.6. Hemoglobin 11.1. Platelets 481. Lymphocytes 1.19. D-dimer 0.74. Sodium 136. Potassium 4.5. BUN 16. Creatinine 0.7. Glucose 138. Walter virus by PCR not detected. She's been initiated on ceftriaxone and azithromycin, DuoNeb inhalations, Flovent, IV Solu-Medrol. Lovenox for DVT prophylaxis. She is seen today in consultation on the regular medical floor. She is up ambulating in her room. Awake and alert in no acute distress. Maintaining good O2 saturation up to 100% on 2 L/m per nasal cannula. She's been afebrile. Hemodynamically stable. All of chest x-ray reveals a moderate left-sided pleural effusion with adjacent subsegmental atelectasis versus infection. Background changes of COPD. The patient is seen today 02/06/2022 in follow-up on the regular medical floor. She is currently sitting up in bed. Awake and alert in no acute distress. She is still having some ongoing issues with left-sided chest discomfort. She is requesting Dilaudid and Percocet on a regular basis. She is maintaining O2 saturations in the mid 90s on room air. No desaturations with activity. Blood cultures revealed no growth. Sputum cultures reveal no growth to date. No new labs today. She is continued on DuoNeb inhalations, IV Solu-Medrol, antibiotics in the form of ceftriaxone and azithromycin. Lovenox for DVT prophylaxis. The patient is seen today 02/07/2022 in follow-up on the regular medical floor. She is currently sitting up in bed. Awake and alert in no acute distress. Doing quite a bit better today compared to yesterday. Maintaining good O2 saturations in the mid 90s on room air. She's been afebrile. Hemodynamically stable. Her left-sided chest discomfort has mainly resolved. No worsening shortness of breath, cough or congestion. Blood cultures reveal no growth. Sputum cultures 2 revealed no growth. White count 19. Hemoglobin 9.7. Sodium 142. Potassium 4.5. BUN 18. Creatinine 0.6. She remains on DuoNeb inhalations, IV Solu-Medrol, antibiotics in the form of clindamycin and azithrom ycin. Lovenox for DVT prophylaxis. Ultrasound of the chest revealed a 2.5 cm pocket of the left pleural effusion. There was tissue seen anteriorly within the pocket. No plans for thoracentesis. The fluid is loculated and possibly an empyema. She had been seen and evaluated by interventional radiology yesterday who recommended a chest tube placement. However the patient received Lovenox yesterday. The patient is seen today 02/08/2022 in follow-up on the regular medical floor. He continues to improve daily. She is maintaining good O2 saturations in the mid 90s on room air. She's been afebrile. Hemodynamically stable. Chest x-ray continues to show a left lower lobe opacity. Unchanged. Sputum culture revealed no growth. Blood cultures revealed no growth. White count 10.6. Hem oglobin 9.3. Sodium 140. Potassium 4.0. Creatinine 0.6. Urinalysis clear. She remains on antibiotics in the form of cefepime, azithromycin and clindamycin per medicine. Continued on bronchodilators. The patient is seen today 02/13/2022 in follow-up on the regular medical floor. She is currently sitting up in bed. Awake and alert in no acute distress. She is still having ongoing issues with left-sided chest wall pain from the loculated left-sided pleural effusion. His chest x-ray isn't showing improvement left lower lobe pneumonic infiltrate. Improved right lateral basilar atelectatic changes. No new infiltrates. She did undergo a diagnostic thoracentesis with only 1 mL of fluid removed. Cultures are pending. Sputum culture revealed no growth. Blood cultures revealed no growth. This recent white count 14.7 and trending down. She is continued on antibiotics in the form of cefepime and clindamycin. She remains on bronchodilators. Heparin for DVT prophylaxis. Objective - Vital Signs Vital signs: Vital Signs Temp 100.2 F H 02/13/22 08:00 Pulse 92 02/13/22 12:07 Resp 18 02/13/22 12:07 BP 123/73 02/13/22 08:00 Pulse Ox 98 02/13/22 08:00 Intake & Output 02/12/22 02/13/22 02/13/22 18:59 06:59 18:59 Weight 59.421 kg Other: Voiding Method Toilet Toilet # Voids 4 4 - Exam GENERAL EXAM: Alert, pleasant 66-year-old female, on room air, comfortable in no apparent distress. HEAD: Normocephalic. EYES: Normal reaction of pupils, equal size. NOSE: Clear with pink turbinates. THROAT: No erythema or exudates. NECK: No masses, no JVD. CHEST: No chest wall deformity. LUNGS: Equal air entry with crackles in the left base. CVS: S1 and S2 normal with no audible murmur, regular rhythm. ABDOMEN: No hepatosplenomegaly, normal bowel sounds, no guarding or rigidity. SPINE: No scoliosis or deformity SKIN: No rashes CENTRAL NERVOUS SYSTEM: No focal deficits, tone is normal in all 4 extremities. EXTREMITIES: There is no peripheral edema. No clubbing, no cyanosis. Peripheral pulses are intact. - Labs CBC & Chem 7: 02/12/22 09:39 02/12/22 09:39 Labs: Abnormal Lab Results - Last 24 Hours (Table) 02/11/22 Range/Units 03:09 Procalcitonin 0.21 H (0.02-0.09) ng/mL Microbiology - Last 24 Hours (Table) 02/12/22 15:34 Gram Stain - Preliminary Pleural Fluid Body Fluid Culture - Preliminary 02/12/22 15:34 Fungal Culture - Preliminary Pleural Fluid 02/12/22 15:34 Acid Fast Bacilli Culture - Preliminary Pleural Fluid Assessment and Plan Assessment: 1 Acute community acquired pneumonia involving the lingula, with multi loculated pleural effusion on the left and there is a development of a complex pleural effusion, loculated in the left lung base. There is also area of consolidation and possibly some loculated lobe use of fluid anteriorly along the left lung. There is also some atelectatic changes involving the left lung adjacent to the area of consolidation. The patient remains on a combination of Cefepime and clindamycin. The patient's white cell count is improving. The plan was to proceed with a IR guided pigtail catheter to drain the left lower lobe posteriorly however only 1 mL of fluid was returned. No pigtail catheter placed. Cultures and cytology pending. Today's chest x-ray is showing some improvement. 2 Left-sided chest wall pain secondary to above, improved 3 Recent COVID-19 infection in November 2021, negative this admission 4 Hypothyroidism 5 Anxiety 6 Gastroesophageal reflux disease Plan: The patient was seen and evaluated IR was able to withdraw only 1 mL of fluid, no pigtail catheter was placed Chest x-ray reviewed showing improvement today Continue cefepime and clindamycin Stable and on room air Continue incentive spirometer Increase her activity as tolerated I have personally seen and examined the patient and reviewed the documentation. I performed a joint evaluation with the nurse practitioner in this evaluation was done more than 20 minutes. I fully agree with the documentation above and the plan of care. The patient is still having some pleuritic left-sided chest wall pain. Repeat chest x-ray from today shows a stable left lower lobe consolidation, probably slightly improved. Continue same antibiotic coverage. Awaiting the cultures from the pleural fluid aspirated earlier by interventional radiology.
--- NOTE | 2022-02-13 16:15 | P.PN ---
Subjective Progress Note Date: 02/13/22 Principal diagnosis: Empyema Patient is a 66 year old female presented to hospital with increasing shortness of breath and cough noticed to have left-sided pneumonia subsequent CT was suspicious of possible empyema and is status post fine needle aspirate completed on 02/12/2022. On today's evaluation that is 02/13/2022, the patient did have low-grade fever 100.2F this morning, the patient is currently breathing comfortably on room air the patient left-sided chest pain has decreased in intensity no nausea no vomiting no abdominal pain and no diarrhea Objective - Vital Signs Vital signs: Vital Signs Temp 100.2 F H 02/13/22 08:00 Pulse 92 02/13/22 12:07 Resp 18 02/13/22 12:07 BP 123/73 02/13/22 08:00 Pulse Ox 98 02/13/22 08:00 Intake & Output 02/12/22 02/13/22 02/13/22 18:59 06:59 18:59 Weight 59.421 kg Other: Voiding Method Toilet Toilet # Voids 4 4 - Exam GENERAL DESCRIPTION: Middle-age female lying in bed in no distress RESPIRATORY SYSTEM: Unlabored breathing , decreased breath sounds at bases HEART: S1 S2 regular rate and rhythm , ABDOMEN: Soft , no tenderness EXTREMITIES: No edema feet - Labs CBC & Chem 7: 02/12/22 09:39 02/12/22 09:39 Labs: Abnormal Lab Results - Last 24 Hours (Table) 02/11/22 Range/Units 03:09 Procalcitonin 0.21 H (0.02-0.09) ng/mL Microbiology - Last 24 Hours (Table) 02/12/22 15:34 Gram Stain - Preliminary Pleural Fluid Body Fluid Culture - Preliminary 02/12/22 15:34 Fungal Culture - Preliminary Pleural Fluid 02/12/22 15:34 Acid Fast Bacilli Culture - Preliminary Pleural Fluid Assessment and Plan (1) Pleural effusion Current Visit: Yes Status: Acute Code(s): J90 - PLEURAL EFFUSION, NOT ELSEWHERE CLASSIFIED SNOMED Code(s): 43717434 (2) Pneumonia Current Visit: Yes Status: Acute Code(s): J18.9 - PNEUMONIA, UNSPECIFIED ORGANISM SNOMED Code(s): 117442521 Plan: 1patient with a admission to hospital with pneumonia now with evidence of multilocular pleural fluid collection concerning for possible empyema in this patient blood culture was negative and sputum culture has been negative could be a regular community-acquired pathogen 2-patient is status post aspiration of the left pleural fluid cultures are currently pending 3-continue with the cefepime and clindamycin while waiting for the culture to finalize Time with Patient: Less than 30
[2022-02-13] MEDS: AMITRIPTYLINE HCL 25 MG TAB PO SCH (20:26)
[2022-02-13] MEDS: ALPRAZolam 0.5 MG TAB PO SCH (20:26)
[2022-02-14] MEDS: HYDROcodone/APAP 5-325MG 1 EACH TAB PO PRN ×6 (00:42→20:04)
[2022-02-14] MEDS: HEPARIN SODIUM,PORCINE/PF 5,000 UNIT/0.5 ML SYRINGE SQ SCH ×3 (00:43→16:06)
[2022-02-14] MEDS: oxyCODONE-APAP 5-325MG 1 EACH TAB PO PRN ×5 (03:29→20:04)
[2022-02-14] MEDS: CLINDAMYCIN 600 MG in DEXTROSE 5% IN WATER 50 ML IVPB SCH ×6 (05:28→21:57)
[2022-02-14] MEDS: CEFEPIME 2 GM in SODIUM CHLORIDE 0.9% 100 ML IVPB SCH ×2 (06:52→17:42)
[2022-02-14] MEDS: LEVOTHYROXINE 88 MCG TAB PO SCH (06:52)
[2022-02-14] MEDS: FLUTICASONE 110 MCG INHALER INHALATION SCH ×2 (07:21→21:10)
[2022-02-14] MEDS: IPRATROPIUM-ALBUTEROL 3 ML NEB INHALATION PRN ×4 (07:21→21:10)
[2022-02-14] MEDS: guaiFENesin 600 MG TABLET.ER PO SCH ×2 (07:44→20:05)
[2022-02-14] MEDS: PANTOPRAZOLE 40 MG TABLET PO SCH (07:48)
--- NOTE | 2022-02-14 10:05 | XR ---
EXAMINATION TYPE: XR chest 2V DATE OF EXAM: 02/14/2022 COMPARISON: Chest x-ray from yesterday and older studies. HISTORY: Pneumonia. TECHNIQUE: Frontal and lateral views of the chest are obtained. FINDINGS: Some persistent left basilar opacity less well-defined. Right lung base shows slightly mor e prominent lateral linear increased opacity. No pleural effusion or pneumothorax seen bilaterally. C ardiac silhouette size remains within normal limits. Osseous structures are intact. IMPRESSION: Persistent left lower acute infiltrate and/or atelectasis. Slightly more prominent latera l right basilar linear atelectasis. No new acute infiltrate seen.
--- NOTE | 2022-02-14 11:06 | P.PN ---
Subjective Progress Note Date: 02/14/22 Pt doing well today on room air. Pain in chest has improved but still present. No fevers overnight. Cultures sent, pending results. Gen: awake, alert HEENT: normocephalic, atraumatic, good hearing acuity, moist mucous membranes Resp: good air exchange, breathing comfortably with no accessory muscle use CVS: good distal perfusion x 4, GI: soft, NTTP, ND : no SPT, no CVAT, conteh catheter not present MSK: no pitting edema, no clubbing Neuro: non-focal, moving all extremities Psych: cooperative, euthymic mood Assessment/Plan: Multifocal pneumonia Loculated left pleural effusion Left rib pain secondary to above -Oxygenation, telemetry. -Duonebs as needed for SOB and/or wheezing -Incentive Spirometry, encourage use 10-15 times hourly while awake -Steroids: Completed course of steroids with Solu-Medrol with last dose 02/07/22 -Antibiotics: Cefepime and clindamycin; ID consulted, could likely de-escalate clindamycin -Sputum culture negative -Blood culture showing no growth after 144 hours -Pulmonology following -Cardiothoracic surgery following -IR consult, s/p thoracentesis on 02/12 -Pain control Hypothyroidism levothyroxine. GERD Protonix. CODE STATUS: Full code DVT prophylaxis: heparin Objective - Vital Signs Vital signs: Vital Signs Temp 98.6 F 02/14/22 07:43 Pulse 88 02/14/22 11:00 Resp 14 02/14/22 07:43 BP 118/74 02/14/22 07:43 Pulse Ox 96 02/14/22 07:43 Intake & Output 02/13/22 02/14/22 02/14/22 18:59 06:59 18:59 Other: Voiding Method Toilet Toilet # Voids 8 # Bowel Movements 2 - Labs CBC & Chem 7: 02/12/22 09:39 02/12/22 09:39 Labs: Microbiology - Last 24 Hours (Table) 02/13/22 16:19 Nasal Screen MRSA/MSSA - Preliminary Nasal Swab 02/12/22 15:34 Acid Fast Bacilli Smear - Final Pleural Fluid Acid Fast Bacilli Culture - Preliminary 02/12/22 15:34 Gram Stain - Preliminary Pleural Fluid Body Fluid Culture - Preliminary
[2022-02-14 11:27] LABS: Basophils # (A) 0.08 X 10*3/uL (0.00-0.10); Basophils % (A) 0.8 %; Eosinophils # (A) 0.26 X 10*3/uL (0.04-0.35); Eosinophils % (A) 2.6 %; HCT 34.2 % (37.2-46.3); HGB 10.4 g/dL (12.0-15.0); Immature Grans, Automated 3.3 %; Lymphocytes # (A) 1.28 X 10*3/uL (0.90-5.00); Lymphocytes % (A) 12.6 %; MCH 28.3 pg (27.0-32.0); MCHC 30.4 g/dL (32.0-37.0); MCV 93.2 fL (80.0-97.0); Monocytes # (A) 1.26 X 10*3/uL (0.20-1.00); Monocytes % (A) 12.4 %; NRBC Per 100 WBC 0 /100 WBCS (0.0-0.0); Neutrophils # (A) 6.93 X 10*3/uL (1.80-7.70); Neutrophils % (A) 68.3 %; Platelet Count 512 X 10*3/uL (140-440); RBC 3.67 X 10*6/uL (4.10-5.20); RDW 15.1 % (11.5-14.5); WBC 10.14 X 10*3/uL (4.50-10.00)
[2022-02-14 13:08] LABS: African American GFR (CKD) 111.6 (60.0-200.0); Albumin 3.7 g/dL (3.8-4.9); Albumin/Globulin Ratio 1.16 (1.60-3.17); Anion Gap 13.2 mmol/L (10.00-18.00); Calcium 10.1 mg/dL (8.7-10.3); Carbon Dioxide 24.8 mmol/L (20.0-27.5); Globulin 3.2 g/dL (1.6-3.3); Non-African American GFR(CKD) 96.3 (60.0-200.0); Potassium 4.8 mmol/L (3.5-5.5); Total Bilirubin 0.2 mg/dL (0.30-1.20); Total Protein 6.9 g/dL (6.2-8.2)
--- NOTE | 2022-02-14 14:17 | P.PN ---
Subjective Progress Note Date: 02/14/22 This is a very pleasant 66-year-old female patient who follows with Dr. Bueno as her primary care provider. She has a history of hypothyroidism, anxiety, gastroesophageal reflux disease. She had tested positive for CoVID in November 2021. She is not vaccinated. She states she did have pneumonia ac cording to her PCP and was treated with antibiotics and steroids. She's had ongoing issues with recurrent shortness of breath, cough and congestion. She felt that was mostly related to the CoVID infection. Yesterday she presented to the emergency with ongoing symptoms and increasing left-sided rib pain. Chest x-ray and CAT scan of the chest revealed evidence of a lingular pneumonia. Some residual effects of the COVID-19 pneumonia. Sputum culture pending. White count 30.6. Hemoglobin 11.1. Platelets 481. Lymphocytes 1.19. D-dimer 0.74. Sodium 136. Potassium 4.5. BUN 16. Creatinine 0.7. Glucose 138. Walter virus by PCR not detected. She's been initiated on ceftriaxone and carla thromycin, DuoNeb inhalations, Flovent, IV Solu-Medrol. Lovenox for DVT prophylaxis. She is seen today in consultation on the regular medical floor. She is up ambulating in her room. Awake and alert in no acute distress. Maintaining good O2 saturation up to 100% on 2 L/m per nasal cannula. She's been afebrile. Hemodynamically stable. All of chest x-ray reveals a moderate left-sided pleural effusion with adjacent subsegmental atelectasis versus infection. Background changes of COPD. The patient is seen today 02/06/2022 in follow-up on the regular medical floor. She is currently sitting up in bed. Awake and alert in no acute distress. She is still having some ongoing issues with left-sided chest discomfort. She is requesting Dilaudid and Percocet on a regular basis. She is maintaining O2 saturations in the mid 90s on room air. No desaturations with activity. Blood cultures revealed no growth. Sputum cultures reveal no growth to date. No new labs today. She is continued on DuoNeb inhalations, IV Solu-Medrol, antibiotics in the form of ceftriaxone and azithromycin. Lovenox for DVT prophylaxis. The patient is seen today 02/07/2022 in follow-up on the regular medical floor. She is currently sitting up in bed. Awake and alert in no acute distress. Doing quite a bit better today compared to yesterday. Maintaining good O2 saturations in the mid 90s on room air. She's been afebrile. Hemodynamically stable. Her left-sided chest discomfort has mainly resolved. No worsening shortness of breath, cough or congestion. Blood cultures reveal no growth. Sputum cultures 2 revealed no growth. White count 19. Hemoglobin 9.7. Sodium 142. Potassium 4.5. BUN 18. Creatinine 0.6. She remains on DuoNeb inhalations, IV Solu-Medrol, antibiotics in the form of clindamycin and azithromycin. Lovenox for DVT prophylaxis. Ultrasound of the chest revealed a 2.5 cm pocket of the left pleural effusion. There was tissue seen anteriorly within the pocket. No plans for thoracentesis. The fluid is loculated and possibly an empyema. She had been seen and evaluated by interventional radiology yesterday who recommended a chest tube placement. However the patient received Lovenox yesterday. The patient is seen today 02/08/2022 in follow-up on the regular medical floor. He continues to improve daily. She is maintaining good O2 saturations in the mid 90s on room air. She's been afebrile. Hemodynamically stable. Chest x-ray continues to show a left lower lobe opacity. Unchanged. Sputum culture revealed no growth. Blood cultures revealed no growth. White count 10.6. Hemoglobin 9.3. Sodium 140. Potassium 4.0. Creatinine 0.6. Urinalysis clear. She remains on antibiotics in the form of cefepime, azithromycin and clindamycin per medicine. Continued on bronchodilators. The patient is seen today 02/13/2022 in follow-up on the regular medical floor. She is currently sitting up in bed. Awake and alert in no acute distress. She is still having ongoing issues with left-sided chest wall pain from the loculated left-sided pleural effusion. His chest x-ray isn't showing improvement left lower lobe pneumonic infiltrate. Improved right lateral basilar atelectatic changes. No new infiltrates. She did undergo a diagnostic thoracentesis with only 1 mL of fluid removed. Cultures are pending. Sputum culture revealed no growth. Blood cultures revealed no growth. This recent white count 14.7 and trending down. She is continued on antibiotics in the form of cefepime and clindamycin. She remains on bronchodilators. Heparin for DVT prophylaxis. 02/14/2022, the patient is doing well clinically. Pleurisy has subsided. Chest x-ray still showing consolidation of left lower lobe/lingular area. The patient remains on IV cefepime and clindamycin. Doing well. She is on room air oxygen. No other complaints otherwise for now. Note that the repeat white cell count is down to 10.1. Hemoglobin is at 10.4. Electrolytes are all within normal limits. Renal function is stable. Pro-calcitonin level is at 0.21. Legionella urine antigen was negative. Normal coagulation profile. The aspiration of the pleural fluid from the left has not shown any microbial positive cultures. Objective - Vital Signs Vital signs: Vital Signs Temp 98.6 F 02/14/22 07:43 Pulse 94 02/14/22 11:11 Resp 14 02/14/22 07:43 BP 118/74 02/14/22 07:43 Pulse Ox 96 02/14/22 07:43 Intake & Output 02/13/22 02/14/22 02/14/22 18:59 06:59 18:59 Other: Voiding Method Toilet Toilet # Voids 8 # Bowel Movements 2 - Exam GENERAL EXAM: Alert, pleasant 66-year-old female, on room air, comfortable in no apparent distress. HEAD: Normocephalic. EYES: Normal reaction of pupils, equal size. NOSE: Clear with pink turbinates. THROAT: No erythema or exudates. NECK: No masses, no JVD. CHEST: No chest wall deformity. LUNGS: Equal air entry with crackles in the left base. CVS: S1 and S2 normal with no audible murmur, regular rhythm. ABDOMEN: No hepatosplenomegaly, normal bowel sounds, no guarding or rigidity. SPINE: No scoliosis or deformity SKIN: No rashes CENTRAL NERVOUS SYSTEM: No focal deficits, tone is normal in all 4 extremities. EXTREMITIES: There is no peripheral edema. No clubbing, no cyanosis. Peripheral pulses are intact. - Labs CBC & Chem 7: 02/14/22 07:15 02/14/22 07:15 Labs: Abnormal Lab Results - Last 24 Hours (Table) 02/14/22 02/14/22 Range/Units 07:15 07:15 WBC 10.14 H (4.50-10.00) X 10*3/uL RBC 3.67 L (4.10-5.20) X 10*6/uL Hgb 10.4 L (12.0-15.0) g/dL Hct 34.2 L (37.2-46.3) % MCHC 30.4 L (32.0-37.0) g/dL RDW 15.1 H (11.5-14.5) % Plt Count 512 H (140-440) X 10*3/uL MPV 9.0 L (9.5-12.2) fL Immature Gran # 0.33 H (0.00-0.04) X 10*3/uL Monocytes # 1.26 H (0.20-1.00) X 10*3/uL Total Bilirubin 0.20 L (0.30-1.20) mg/dL Albumin 3.7 L (3.8-4.9) g/dL Albumin/Globulin Ratio 1.16 L (1.60-3.17) g/dL Microbiology - Last 24 Hours (Table) 02/13/22 16:19 Nasal Screen MRSA/MSSA - Preliminary Nasal Swab 02/12/22 15:34 Acid Fast Bacilli Smear - Final Pleural Fluid Acid Fast Bacilli Culture - Preliminary 02/12/22 15:34 Gram Stain - Preliminary Pleural Fluid Body Fluid Culture - Preliminary Assessment and Plan Plan: #1. Acute community acquired pneumonia involving the lingula, with multi loculated pleural effusion on the left and there is a development of a complex pleural effusion, loculated in the left lung base. There is also area of consolidation and possibly some loculated lobe use of fluid anteriorly along the left lung. There is also some atelectatic changes involving the left lung adjacent to the area of consolidation. The patient remains on a combination of Cefepime and clindamycin. The patient's white cell count is improving. The patient is less tachycardic on today's evaluation. Unable to insert a catheter in the left hemithorax by IR. Aspirate of the fluid from the left lung and no positive cultures. Patient is not having any significant tachycardia. White cell count is improving. Pro-calcitonin level is low. #2. Left-sided chest wall pain secondary to the above, improved #3. COVID 19 infection in November 2021 #4. Hypothyroidism #5. Anxiety #6. GERD/reflux Plan: The patient is clinically improving. The pruritus has subsided. The pleural fluid aspirated from the left lung showed no evidence of any microbial growth. Chest x-ray still showing stable consolidation. We will repeat another CAT scan within next 2448 hrs. to monitor the loculation developing in the left lung. The patient's white cell count is improving. The patient clinically improving. The pleural calcitonin level is mildly elevated. We'll review the CAT scan of the chest that will be done within next 2448 hrs. for final recommendation.
[2022-02-14] MEDS: AMITRIPTYLINE HCL 25 MG TAB PO SCH (20:05)
[2022-02-14] MEDS: ALPRAZolam 0.5 MG TAB PO SCH (21:57)
--- NOTE | 2022-02-14 23:43 | P.PN ---
Subjective Progress Note Date: 02/14/22 Principal diagnosis: Empyema Patient is a 66 year old female presented to hospital with increasing shortness of breath and cough noticed to have left-sided pneumonia subsequent CT was suspicious of possible empyema and is status post fine needle aspirate completed on 02/12/2022. On today's evaluation that is 02/14/2022, the patient is afebrile today, the patient is breathing comfortably on room air the patient left-sided chest pain has decreased in intensity, the patient denies nausea no vomiting no abdominal pain and no diarrhea Objective - Vital Signs Vital signs: Vital Signs Temp 98.7 F 02/14/22 14:00 Pulse 98 02/14/22 14:00 Resp 16 02/14/22 14:00 BP 96/61 02/14/22 14:00 Pulse Ox 97 02/14/22 14:00 Intake & Output 02/13/22 02/14/22 02/14/22 18:59 06:59 18:59 Other: Voiding Method Toilet Toilet # Voids 8 # Bowel Movements 2 - Exam GENERAL DESCRIPTION: Middle-age female lying in bed in no distress RESPIRATORY SYSTEM: Unlabored breathing , decreased breath sounds at bases HEART: S1 S2 regular rate and rhythm , ABDOMEN: Soft , no tenderness EXTREMITIES: No edema feet - Labs CBC & Chem 7: 02/14/22 07:15 02/14/22 07:15 Labs: Abnormal Lab Results - Last 24 Hours (Table) 02/14/22 02/14/22 Range/Units 07:15 07:15 WBC 10.14 H (4.50-10.00) X 10*3/uL RBC 3.67 L (4.10-5.20) X 10*6/uL Hgb 10.4 L (12.0-15.0) g/dL Hct 34.2 L (37.2-46.3) % MCHC 30.4 L (32.0-37.0) g/dL RDW 15.1 H (11.5-14.5) % Plt Count 512 H (140-440) X 10*3/uL MPV 9.0 L (9.5-12.2) fL Immature Gran # 0.33 H (0.00-0.04) X 10*3/uL Monocytes # 1.26 H (0.20-1.00) X 10*3/uL Total Bilirubin 0.20 L (0.30-1.20) mg/dL Albumin 3.7 L (3.8-4.9) g/dL Albumin/Globulin Ratio 1.16 L (1.60-3.17) g/dL Microbiology - Last 24 Hours (Table) 02/13/22 16:19 Nasal Screen MRSA/MSSA - Preliminary Nasal Swab 02/12/22 15:34 Acid Fast Bacilli Smear - Final Pleural Fluid Acid Fast Bacilli Culture - Preliminary 02/12/22 15:34 Gram Stain - Preliminary Pleural Fluid Body Fluid Culture - Preliminary Assessment and Plan (1) Pleural effusion Current Visit: Yes Status: Acute Code(s): J90 - PLEURAL EFFUSION, NOT ELSEWHERE CLASSIFIED SNOMED Code(s): 51955702 (2) Pneumonia Current Visit: Yes Status: Acute Code(s): J18.9 - PNEUMONIA, UNSPECIFIED ORGANISM SNOMED Code(s): 436377208 Plan: 1patient with a admission to hospital with pneumonia now with evidence of multi locular pleural fluid collection concerning for possible empyema in this patient blood culture was negative and sputum culture has been negative could be a regular community-acquired pathogen 2-patient is status post aspiration of the left pleural fluid cultures are currently pending 3Patient will continue with cefepime and clindamycin while waiting for the culture to finalize and monitor clinical course closely Time with Patient: Less than 30
[2022-02-15] MEDS: oxyCODONE-APAP 5-325MG 1 EACH TAB PO PRN ×6 (00:03→22:31)
[2022-02-15] MEDS: HYDROcodone/APAP 5-325MG 1 EACH TAB PO PRN ×2 (00:04→05:19)
[2022-02-15] MEDS: CEFEPIME 2 GM in SODIUM CHLORIDE 0.9% 100 ML IVPB SCH ×3 (00:04→16:22)
[2022-02-15] MEDS: HEPARIN SODIUM,PORCINE/PF 5,000 UNIT/0.5 ML SYRINGE SQ SCH ×3 (00:06→16:22)
[2022-02-15] MEDS: CLINDAMYCIN 600 MG in DEXTROSE 5% IN WATER 50 ML IVPB SCH ×6 (05:19→22:31)
[2022-02-15] MEDS: LEVOTHYROXINE 88 MCG TAB PO SCH (06:25)
[2022-02-15] MEDS: FLUTICASONE 110 MCG INHALER INHALATION SCH ×2 (07:08→20:33)
[2022-02-15] MEDS: IPRATROPIUM-ALBUTEROL 3 ML NEB INHALATION PRN ×4 (07:08→20:33)
[2022-02-15] MEDS: guaiFENesin 600 MG TABLET.ER PO SCH ×2 (08:09→20:51)
[2022-02-15] MEDS: PANTOPRAZOLE 40 MG TABLET PO SCH (08:09)
--- NOTE | 2022-02-15 10:33 | P.PN ---
Subjective Progress Note Date: 02/15/22 Pt doing well today on room air again. Pain in chest has improved but still present. No fevers overnight. Cultures sent, pending results. Plan for repeat CT chest tomorrow to follow up empyeme Gen: awake, alert HEENT: normocephalic, atraumatic, good hearing acuity, moist mucous membranes Resp: good air exchange, breathing comfortably with no accessory muscle use CVS: good distal perfusion x 4, GI: soft, NTTP, ND : no SPT, no CVAT, conteh catheter not present MSK: no pitting edema, no clubbing Neuro: non-focal, moving all extremities Psych: cooperative, euthymic mood Assessment/Plan: Multifocal pneumonia Loculated left pleural effusion Left rib pain secondary to above -Oxygenation, telemetry. -Duonebs as needed for SOB and/or wheezing -Incentive Spirometry, encourage use 10-15 times hourly while awake -Steroids: Completed course of steroids with Solu-Medrol with last dose 02/07/22 -Antibiotics: Cefepime and clindamycin; ID consulted, could likely de-escalate clindamycin -Sputum culture negative -Blood culture showing no growth after 144 hours -Pulmonology following -Cardiothoracic surgery following -IR consult, s/p thoracentesis on 02/12 -Pain control Hypothyroidism levothyroxine. GERD Protonix. CODE STATUS: Full code DVT prophylaxis: heparin Objective - Vital Signs Vital signs: Vital Signs Temp 97.4 F L 02/15/22 08:00 Pulse 87 02/15/22 08:00 Resp 18 02/15/22 08:00 BP 105/70 02/15/22 08:00 Pulse Ox 95 02/15/22 08:00 Intake & Output 02/14/22 02/15/22 02/15/22 18:59 06:59 18:59 Other: Voiding Method Toilet # Voids 3 2 - Labs CBC & Chem 7: 02/14/22 07:15 02/14/22 07:15 Labs: Abnormal Lab Results - Last 24 Hours (Table) 02/14/22 02/14/22 Range/Units 07:15 07:15 WBC 10.14 H (4.50-10.00) X 10*3/uL RBC 3.67 L (4.10-5.20) X 10*6/uL Hgb 10.4 L (12.0-15.0) g/dL Hct 34.2 L (37.2-46.3) % MCHC 30.4 L (32.0-37.0) g/dL RDW 15.1 H (11.5-14.5) % Plt Count 512 H (140-440) X 10*3/uL MPV 9.0 L (9.5-12.2) fL Immature Gran # 0.33 H (0.00-0.04) X 10*3/uL Monocytes # 1.26 H (0.20-1.00) X 10*3/uL Total Bilirubin 0.20 L (0.30-1.20) mg/dL Albumin 3.7 L (3.8-4.9) g/dL Albumin/Globulin Ratio 1.16 L (1.60-3.17) g/dL Microbiology - Last 24 Hours (Table) 02/13/22 16:19 Nasal Screen MRSA/MSSA - Final Nasal Swab 02/12/22 15:34 Gram Stain - Preliminary Pleural Fluid Body Fluid Culture - Preliminary
[2022-02-15] MEDS: IBUPROFEN 400 MG TAB PO PRN ×2 (16:37→20:51)
--- NOTE | 2022-02-15 16:43 | P.PN ---
Subjective Progress Note Date: 02/15/22 This is a very pleasant 66-year-old female patient who follows with Dr. Bueno as her primary care provider. She has a history of hypothyroidism, anxiety, gastroesophageal reflux disease. She had tested positive for CoVID in November 2021. She is not vaccinated. She states she did have pneumonia ac cording to her PCP and was treated with antibiotics and steroids. She's had ongoing issues with recurrent shortness of breath, cough and congestion. She felt that was mostly related to the CoVID infection. Yesterday she presented to the emergency with ongoing symptoms and increasing left-sided rib pain. Chest x-ray and CAT scan of the chest revealed evidence of a lingular pneumonia. Some residual effects of the COVID-19 pneumonia. Sputum culture pending. White count 30.6. Hemoglobin 11.1. Platelets 481. Lymphocytes 1.19. D-dimer 0.74. Sodium 136. Potassium 4.5. BUN 16. Creatinine 0.7. Glucose 138. Walter virus by PCR not detected. She's been initiated on ceftriaxone and carla thromycin, DuoNeb inhalations, Flovent, IV Solu-Medrol. Lovenox for DVT prophylaxis. She is seen today in consultation on the regular medical floor. She is up ambulating in her room. Awake and alert in no acute distress. Maintaining good O2 saturation up to 100% on 2 L/m per nasal cannula. She's been afebrile. Hemodynamically stable. All of chest x-ray reveals a moderate left-sided pleural effusion with adjacent subsegmental atelectasis versus infection. Background changes of COPD. The patient is seen today 02/06/2022 in follow-up on the regular medical floor. She is currently sitting up in bed. Awake and alert in no acute distress. She is still having some ongoing issues with left-sided chest discomfort. She is requesting Dilaudid and Percocet on a regular basis. She is maintaining O2 saturations in the mid 90s on room air. No desaturations with activity. Blood cultures revealed no growth. Sputum cultures reveal no growth to date. No new labs today. She is continued on DuoNeb inhalations, IV Solu-Medrol, antibiotics in the form of ceftriaxone and azithromycin. Lovenox for DVT prophylaxis. The patient is seen today 02/07/2022 in follow-up on the regular medical floor. She is currently sitting up in bed. Awake and alert in no acute distress. Doing quite a bit better today compared to yesterday. Maintaining good O2 saturations in the mid 90s on room air. She's been afebrile. Hemodynamically stable. Her left-sided chest discomfort has mainly resolved. No worsening shortness of breath, cough or congestion. Blood cultures reveal no growth. Sputum cultures 2 revealed no growth. White count 19. Hemoglobin 9.7. Sodium 142. Potassium 4.5. BUN 18. Creatinine 0.6. She remains on DuoNeb inhalations, IV Solu-Medrol, antibiotics in the form of clindamycin and azithromycin. Lovenox for DVT prophylaxis. Ultrasound of the chest revealed a 2.5 cm pocket of the left pleural effusion. There was tissue seen anteriorly within the pocket. No plans for thoracentesis. The fluid is loculated and possibly an empyema. She had been seen and evaluated by interventional radiology yesterday who recommended a chest tube placement. However the patient received Lovenox yesterday. The patient is seen today 02/08/2022 in follow-up on the regular medical floor. He continues to improve daily. She is maintaining good O2 saturations in the mid 90s on room air. She's been afebrile. Hemodynamically stable. Chest x-ray continues to show a left lower lobe opacity. Unchanged. Sputum culture revealed no growth. Blood cultures revealed no growth. White count 10.6. Hemoglobin 9.3. Sodium 140. Potassium 4.0. Creatinine 0.6. Urinalysis clear. She remains on antibiotics in the form of cefepime, azithromycin and clindamycin per medicine. Continued on bronchodilators. The patient is seen today 02/13/2022 in follow-up on the regular medical floor. She is currently sitting up in bed. Awake and alert in no acute distress. She is still having ongoing issues with left-sided chest wall pain from the loculated left-sided pleural effusion. His chest x-ray isn't showing improvement left lower lobe pneumonic infiltrate. Improved right lateral basilar atelectatic changes. No new infiltrates. She did undergo a diagnostic thoracentesis with only 1 mL of fluid removed. Cultures are pending. Sputum culture revealed no growth. Blood cultures revealed no growth. This recent white count 14.7 and trending down. She is continued on antibiotics in the form of cefepime and clindamycin. She remains on bronchodilators. Heparin for DVT prophylaxis. 02/14/2022, the patient is doing well clinically. Pleurisy has subsided. Chest x-ray still showing consolidation of left lower lobe/lingular area. The patient remains on IV cefepime and clindamycin. Doing well. She is on room air oxygen. No other complaints otherwise for now. Note that the repeat white cell count is down to 10.1. Hemoglobin is at 10.4. Electrolytes are all within normal limits. Renal function is stable. Pro-calcitonin level is at 0.21. Legionella urine antigen was negative. Normal coagulation profile. The aspiration of the pleural fluid from the left has not shown any microbial positive cultures. 02/15/2022, clinically stable, pleuritic chest pain is subsided significantly and is currently around 3 out of 10. Afebrile. White cell count is down. No significant tachycardia. Remains on the same antibiotic coverage. Pleural fluid culture has been negative. Objective - Vital Signs Vital signs: Vital Signs Temp 97.9 F 02/15/22 14:00 Pulse 100 02/15/22 15:42 Resp 18 02/15/22 14:00 BP 107/71 02/15/22 14:00 Pulse Ox 100 02/15/22 14:00 Intake & Output 02/14/22 02/15/22 02/15/22 18:59 06:59 18:59 Other: Voiding Method Toilet # Voids 3 2 3 - Exam GENERAL EXAM: Alert, pleasant 66-year-old female, on room air, comfortable in no apparent distress. HEAD: Normocephalic. EYES: Normal reaction of pupils, equal size. NOSE: Clear with pink turbinates. THROAT: No erythema or exudates. NECK: No masses, no JVD. CHEST: No chest wall deformity. LUNGS: Equal air entry with crackles in the left base. CVS: S1 and S2 normal with no audible murmur, regular rhythm. ABDOMEN: No hepatosplenomegaly, normal bowel sounds, no guarding or rigidity. SPINE: No scoliosis or deformity SKIN: No rashes CENTRAL NERVOUS SYSTEM: No focal deficits, tone is normal in all 4 extremities. EXTREMITIES: There is no peripheral edema. No clubbing, no cyanosis. Peripheral pulses are intact. - Labs CBC & Chem 7: 02/14/22 07:15 02/14/22 07:15 Labs: Microbiology - Last 24 Hours (Table) 02/13/22 16:19 Nasal Screen MRSA/MSSA - Final Nasal Swab 02/12/22 15:34 Gram Stain - Preliminary Pleural Fluid Body Fluid Culture - Preliminary Assessment and Plan Plan: #1. Acute community acquired pneumonia involving the lingula, with multi loculated pleural effusion on the left and there is a development of a complex pleural effusion, loculated in the left lung base. There is also area of consolidation and possibly some loculated lobe use of fluid anteriorly along the left lung. There is also some atelectatic changes involving the left lung adjacent to the area of consolidation. The patient remains on a combination of Cefepime and clindamycin. The patient's white cell count is improving. The patient is less tachycardic on today's evaluation. Unable to insert a catheter in the left hemithorax by IR. Aspirate of the fluid from the left lung and no positive cultures. Patient is not having any significant tachycardia. White cell count is improving. Pro-calcitonin level is low. #2. Left-sided chest wall pain secondary to the above, improved #3. COVID 19 infection in November 2021 #4. Hypothyroidism #5. Anxiety #6. GERD/reflux Plan: The patient is clinically improving. The pleurisy has subsided. Obtain a follow-up CAT scan of the chest noncontrast in a.m. Pleural fluid aspirated from the left lung showed no microbial growth The patient's pain is subsided and the patient is ambulating The patient's white cell count is improving. The patient clinically improving. . We'll review the CAT scan of the chest that will be done within next 2448 hrs. for final recommendation.
[2022-02-15] MEDS: AMITRIPTYLINE HCL 25 MG TAB PO SCH (20:51)
[2022-02-15] MEDS: ALPRAZolam 0.5 MG TAB PO SCH (20:51)
--- NOTE | 2022-02-15 23:40 | P.PN ---
Subjective Progress Note Date: 02/15/22 Principal diagnosis: Empyema Patient is a 66 year old female presented to hospital with increasing shortness of breath and cough noticed to have left-sided pneumonia subsequent CT was suspicious of possible empyema and is status post fine needle aspirate completed on 02/12/2022. On today's evaluation that is 02/15/2022, the patient remains to be afebrile, the patient is breathing comfortably on room air the patient left-sided chest pain has decreased in intensity, the patient denies nausea no vomiting no abdominal pain and no diarrhea with antibiotic therapy Objective - Vital Signs Vital signs: Vital Signs Temp 97.4 F L 02/15/22 08:00 Pulse 96 02/15/22 11:12 Resp 18 02/15/22 08:00 BP 105/70 02/15/22 08:00 Pulse Ox 95 02/15/22 08:00 Intake & Output 02/14/22 02/15/22 02/15/22 18:59 06:59 18:59 Other: Voiding Method Toilet # Voids 3 2 - Exam GENERAL DESCRIPTION: Middle-age female lying in bed in no distress RESPIRATORY SYSTEM: Unlabored breathing , decreased breath sounds at bases HEART: S1 S2 regular rate and rhythm , ABDOMEN: Soft , no tenderness EXTREMITIES: No edema feet - Labs CBC & Chem 7: 02/14/22 07:15 02/14/22 07:15 Labs: Abnormal Lab Results - Last 24 Hours (Table) 02/14/22 Range/Units 07:15 Total Bilirubin 0.20 L (0.30-1.20) mg/dL Albumin 3.7 L (3.8-4.9) g/dL Albumin/Globulin Ratio 1.16 L (1.60-3.17) g/dL Microbiology - Last 24 Hours (Table) 02/13/22 16:19 Nasal Screen MRSA/MSSA - Final Nasal Swab 02/12/22 15:34 Gram Stain - Preliminary Pleural Fluid Body Fluid Culture - Preliminary Assessment and Plan (1) Pleural effusion Current Visit: Yes Status: Acute Code(s): J90 - PLEURAL EFFUSION, NOT ELSEWHERE CLASSIFIED SNOMED Code(s): 23070895 (2) Pneumonia Current Visit: Yes Status: Acute Code(s): J18.9 - PNEUMONIA, UNSPECIFIED ORGANISM SNOMED Code(s): 801928233 Plan: 1patient with a admission to hospital with pneumonia now with evidence of multilocular pleural fluid collection concerning for possible empyema in this patient blood culture was negative and sputum culture has been negative could be a regular community-acquired pathogen 2-patient is status post aspiration of the left pleural fluid cultures are currently pending 3Patient is currently being treated with cefepime and clindamycin with a plan for repeat CAT scan in the morning and continues with supportive care Time with Patient: Less than 30
[2022-02-16] MEDS: CEFEPIME 2 GM in SODIUM CHLORIDE 0.9% 100 ML IVPB SCH ×4 (00:07→23:24)
[2022-02-16] MEDS: HEPARIN SODIUM,PORCINE/PF 5,000 UNIT/0.5 ML SYRINGE SQ SCH ×4 (00:08→23:25)
[2022-02-16] MEDS: oxyCODONE-APAP 5-325MG 1 EACH TAB PO PRN ×5 (02:46→21:56)
[2022-02-16] MEDS: LEVOTHYROXINE 88 MCG TAB PO SCH (06:22)
[2022-02-16] MEDS: CLINDAMYCIN 600 MG in DEXTROSE 5% IN WATER 50 ML IVPB SCH ×2 (06:22)
[2022-02-16] MEDS: FLUTICASONE 110 MCG INHALER INHALATION SCH ×3 (09:23→23:53)
[2022-02-16] MEDS: IPRATROPIUM-ALBUTEROL 3 ML NEB INHALATION PRN ×3 (09:23→23:53)
[2022-02-16] MEDS: guaiFENesin 600 MG TABLET.ER PO SCH ×2 (09:39→19:43)
[2022-02-16] MEDS: PANTOPRAZOLE 40 MG TABLET PO SCH (09:40)
--- NOTE | 2022-02-16 11:09 | CT ---
EXAMINATION TYPE: CT chest wo con DATE OF EXAM: 02/16/2022 INDICATION: Pneumonia CT DLP: 211.9 mGy.cm Automated Exposure Control for Dose Reduction was Utilized. TECHNIQUE AND CONTRAST: CT scan of the chest without IV contrast administration. COMPARISON: CT dated 02/11/2022 FINDINGS: Persistent think consolidation in the lingula, slightly improved compared to the previous. Newly seen minimal pulmonary infiltration at the posterior aspect of the left lower lobe with adjacent nodulari ty, possibly inflammatory/infectious. Multiloculated left-sided pleural fluid is again noted, only sl ightly improved compared to the previous CT scan. Persistent thick atelectasis in the lower lobes. COPD changes. Minimal bilateral apical pulmonary fib rotic changes. Patent trachea and main bronchi. No right-sided pleural effusion. No gross cardiomegal y. Scattered arterial atherosclerotic calcifications. Stable prominent mediastinal lymph nodes without interval progression. Hilar lymph nodes are suboptim ally assessed by this nonenhanced CT scan. No pericardial effusion. Unremarkable upper abdomen. Degen erative changes of the mid to lower thoracic spine. IMPRESSION: Persistent thick lingular atelectasis, slightly improved compared to the previous CT scan. This could be related to acute infection/pneumonia however underlying lesion can't be excluded. Recommend follo w-up to complete resolution. Persistent multiloculated left-sided pleural effusion, slightly improved compared to the previous. Ne wly seen minimal infiltration and nodularity in the left lower lobe, probably inflammatory/infectious in etiology, attention follow-up. Other interval changes as described above.
[2022-02-16] MEDS: IBUPROFEN 400 MG TAB PO PRN ×3 (12:19→23:25)
[2022-02-16] MEDS: CLINDAMYCIN 150 MG CAP PO SCH ×2 (13:45→21:56)
--- NOTE | 2022-02-16 15:58 | P.PN ---
Subjective Patient was examined at bedside today not complaining of any new symptomatology. Denies any worsening shortness of breath. Case discussed with RN present at bedside. Objective - Vital Signs Vital signs: Vital Signs Temp 97.6 F 02/16/22 14:00 Pulse 88 02/16/22 14:00 Resp 18 02/16/22 14:00 BP 108/74 02/16/22 14:00 Pulse Ox 98 02/16/22 14:00 Intake & Output 02/15/22 02/16/22 02/16/22 18:59 06:59 18:59 Other: Voiding Method Toilet Toilet # Voids 3 - Exam Gen: awake, alert HEENT: normocephalic, atraumatic, good hearing acuity, moist mucous membranes Resp: good air exchange, breathing comfortably with no accessory muscle use CVS: good distal perfusion x 4, GI: soft, NTTP, ND : no SPT, no CVAT, conteh catheter not present MSK: no pitting edema, no clubbing Neuro: non-focal, moving all extremities Psych: cooperative, euthymic mood - Labs CBC & Chem 7: 02/14/22 07:15 02/14/22 07:15 Labs: Microbiology - Last 24 Hours (Table) 02/12/22 15:34 Gram Stain - Preliminary Pleural Fluid Body Fluid Culture - Preliminary Assessment and Plan Assessment: Multifocal pneumonia Loculated left pleural effusion Left rib pain secondary to above -Oxygenation, telemetry. -Duonebs as needed for SOB and/or wheezing -Incentive Spirometry, encourage use 10-15 times hourly while awake -Steroids: Completed course of steroids with Solu-Medrol with last dose 02/07/22 -Antibiotics: Cefepime and clindamycin; ID consulted -Sputum culture negative -Blood culture showing no growth -Pulmonology following -Cardiothoracic surgery following -IR consult, s/p thoracentesis on 02/12 -Pain control -Repeat computed tomography scan completed the recommending follow-up to comp lete resolution. Hypothyroidism levothyroxine. GERD Protonix. CODE STATUS: Full code DVT prophylaxis: heparin
--- NOTE | 2022-02-16 16:19 | P.PN ---
Subjective Progress Note Date: 02/16/22 Principal diagnosis: Left-sided pleuritic chest pain This is a very pleasant 66-year-old female patient who follows with Dr. Bueno as her primary care provider. She has a history of hypothyroidism, anxiety, gastroesophageal reflux disease. She had tested positive for CoVID in November 2021. She is not vaccinated. She states she did have pneumonia according to her PCP and was treated with antibiotics and steroids. She's had ongoing issues with recurrent shortness of breath, cough and congestion. She felt that was mostly related to the CoVID infection. Yesterday she presented to the emergency with ongoing symptoms and increasing left-sided rib pain. Chest x-ray and CAT scan of the chest revealed evidence of a lingular pneumonia. Some residual effects of the COVID-19 pneumonia. Sputum culture pending. White count 30.6. Hemoglobin 11.1. Platelets 481. Lymphocytes 1.19. D-dimer 0.74. Sodium 136. Potassium 4.5. BUN 16. Creatinine 0.7. Glucose 138. Walter virus by PCR not detected. She's been initiated on ceftriaxone and azithromycin, DuoNeb inhalations, Flovent, IV Solu-Medrol. Lovenox for DVT prophylaxis. She is seen today in consultation on the regular medical floor. She is up ambulating in her room. Awake and alert in no acute distress. Maintaining good O2 saturation up to 100% on 2 L/m per nasal cannula. She's been afebrile. Hemodynamically stable. All of chest x-ray reveals a moderate left-sided pleural effusion with adjacent subsegmental atelectasis versus infection. Background changes of COPD. The patient is seen today 02/06/2022 in follow-up on the regular medical floor. She is currently sitting up in bed. Awake and alert in no acute distress. She is still having some ongoing issues with left-sided chest discomfort. She is requesting Dilaudid and Percocet on a regular basis. She is maintaining O2 saturations in the mid 90s on room air. No desaturations with activity. Blood cultures revealed no growth. Sputum cultures reveal no growth to date. No new labs today. She is continued on DuoNeb inhalations, IV Solu-Medrol, antibiotics in the form of ceftriaxone and azithromycin. Lovenox for DVT prophylaxis. The patient is seen today 02/07/2022 in follow-up on the regular medical floor. She is currently sitting up in bed. Awake and alert in no acute distress. Doing quite a bit better today compared to yesterday. Maintaining good O2 saturations in the mid 90s on room air. She's been afebrile. Hemodynamically stable. Her left-sided chest discomfort has mainly resolved. No worsening short ness of breath, cough or congestion. Blood cultures reveal no growth. Sputum cultures 2 revealed no growth. White count 19. Hemoglobin 9.7. Sodium 142. Potassium 4.5. BUN 18. Creatinine 0.6. She remains on DuoNeb inhalations, IV Solu-Medrol, antibiotics in the form of clindamycin and azithromycin. Lovenox for DVT prophylaxis. Ultrasound of the chest revealed a 2.5 cm pocket of the left pleural effusion. There was tissue seen anteriorly within the pocket. No plans for thoracentesis. The fluid is loculated and possibly an empyema. She had been seen and evaluated by interventional radiology yesterday who recommended a chest tube placement. However the patient received Lovenox y . The patient is seen today 02/08/2022 in follow-up on the regular medical floor. He continues to improve daily. She is maintaining good O2 saturations in the mid 90s on room air. She's been afebrile. Hemodynamically stable. Chest x-ray continues to show a left lower lobe opacity. Unchanged. Sputum culture revealed no growth. Blood cultures revealed no growth. White count 10.6. Hemoglobin 9.3. Sodium 140. Potassium 4.0. Creatinine 0.6. Urinalysis clear. She remains on antibiotics in the form of cefepime, azithromycin and clindamycin per medicine. Continued on bronchodilators. On 02/09/2022 patient seen in follow-up on medical surgical floor. Today she looks comfortable, she sits up in bed, currently on room air, with pulse ox of 94-98% she's been afebrile, vital signs stable, she still having some left rib chest discomfort, but no acute distress was noted, no worsening shortness of breath. Follow-up chest x-ray today showing mild interstitial prominence, and patchy change at the periphery of the right base, focal airspace opacity at the left base is unchanged. Patient was seen in consultation by CT surgery, and patient is not a candidate for chest tube placement at this time. She continues on cefepime for antibiotic coverage, she is on breathing treatments, she is receiving oral medications for pleuritic chest discomfort. Her blood and sputum cultures have shown no growth. Her labs show significant improvement in her leukocytosis, and her white blood cell count is down to 10.6 compared to 30.6 on 02/05/2022. Hemoglobin is 9.3, electrolytes and renal profile are unremarkable. No altered mentation, no acute distress. Patient was recommended to continue medical treatment right now. On 02/10/2022 patient seen in follow-up on medical surgical floor. She states she is breathing and feeling much better on today's exam, and left-sided rib pain has improved. However she is requesting Motrin if that's okay to have for pain control. She remains on cefepime for antibiotic coverage. She remains on nebulized bronchodilators. All of her cultures are negative thus far including blood and sputum cultures. Today's labs have been noted, her white blood cell, has noted to be increased and is up to 22.1 on today's labs, hemoglobin is 12.3, sodium is 134, dressed electrolytes were Within normal limits, LFTs are within normal limits, urinalysis was negative. Patient has been afebrile, vital signs have been stable, room air pulse ox is 94 200%. Breathing is nonlabored. Follow-up 2 view chest x-ray has been obtained today showing background mild underlying emphysematous changes with left lower lobe infiltrate. On 02/16/2022 patient seen in follow-up on medical surgical floor, she is awake and alert, in no acute distress, she states she is feeling better, left-sided pleuritic chest pain is improved, room air pulse ox is 95%, vital signs have been stable, remains on cefepime and clindamycin for empiric antibiotic coverage. Her blood sputum and pleural fluid cultures have been negative. Today's labs have been reviewed, with difficulty is improving and is down to 10.14, hemoglobin is 10.4, electrolytes and renal profile are unremarkable. Legionella urine antigen was negative. CT chest without IV contrast has been ob tained showing persistent thick lingular atelectasis improved compared the previous computed tomography scan with a recommendation to follow up to complete resolution. There was persistent multiloculated left-sided pleural effusion slightly improved, with newly seen minimal infiltration nodularity in the left lower lobe probably inflammatory/infectious in etiology. Clinically patient has had no acute events overnight. Overall she is feeling better, denies any worsening dyspnea denies any cough or chest discomfort Objective - Vital Signs Vital signs: Vital Signs Temp 97.6 F 02/16/22 14:00 Pulse 88 02/16/22 14:00 Resp 18 02/16/22 14:00 BP 108/74 02/16/22 14:00 Pulse Ox 98 02/16/22 14:00 Intake & Output 02/15/22 02/16/22 02/16/22 18:59 06:59 18:59 Other: Voiding Method Toilet Toilet # Voids 3 - Exam GENERAL EXAM: Alert, very pleasant, 66-year-old white female, on room air with pulse ox of 94-100%, comfortable in no apparent distress. HEAD: Normocephalic/atraumatic. EYES: Normal reaction of pupils, equal size. Conjunctiva pink, sclera white. NOSE: Clear with pink turbinates. THROAT: No erythema or exudates. NECK: No masses, no JVD, no thyroid enlargement, no adenopathy. CHEST: No chest wall deformity. Symmetrical expansion. LUNGS: Diminished breath sounds at the bases CVS: Regular rate and rhythm, normal S1 and S2, no gallops, no murmurs, no rubs ABDOMEN: Soft, nontender. No hepatosplenomegaly, normal bowel sounds, no guardi ng or rigidity. EXTREMITIES: No clubbing, no edema, no cyanosis, 2+ pulses and upper and lower extremities. MUSCULOSKELETAL: Muscle strength and tone normal. SPINE: No scoliosis or deformity SKIN: No rashes CENTRAL NERVOUS SYSTEM: Alert and oriented -3. No focal deficits, tone is normal in all 4 extremities. PSYCHIATRIC: Alert and oriented -3. Appropriate affect. Intact judgment and insight. - Labs CBC & Chem 7: 02/14/22 07:15 02/14/22 07:15 Labs: Microbiology - Last 24 Hours (Table) 02/12/22 15:34 Gram Stain - Preliminary Pleural Fluid Body Fluid Culture - Preliminary Assessment and Plan Plan: Assessment: #1. Acute community acquired pneumonia involving the lingula, with multi loculated information sent she within the pleural effusion pocket on the left. CT surgery was consulted for possible placement of the chest tube however she is currently not a candidate, and medical treatment was recommended. White blood cell is currently improving, vital signs have been stable, follow-up computed tomography scan of the chest shows improved but persistent thick lingular atelectasis, and persistent multiloculated left-sided pleural effusion, with slight improvement #2. Left-sided chest wall pain secondary to the above, improved #3. COVID 19 infection in November 2021 #4. Hypothyroidism #5. Anxiety #6. GERD/reflux #7. Hx of smoking, possible history of COPD Plan: Patient is feeling and breathing easier Left-sided rib pain is improved Today's computed tomography scan has been reviewed showing slight improvement in the appearance of multiloculated left-sided pleural effusion, and persistent lingular atelectasis/infiltrate Clinically patient has been stable She could be considered for discharge home from pulmonary perspective Antibiotics after discharge per ID service recommendations Increase activity as tolerated Patient could benefit from DuoNeb nebulized treatments as needed at home for possible history of COPD and past history of smoking We'll speak to discharge planning Otherwise continue current medical treatment We'll follow I have personally seen and examined the patient, performed the documentation and the assessment and plan as written. Number of minutes spent on the visit: [10] Time with Patient: Less than 30
[2022-02-16] MEDS: AMITRIPTYLINE HCL 25 MG TAB PO SCH (19:43)
[2022-02-16] MEDS: ALPRAZolam 0.5 MG TAB PO SCH (19:43)
--- NOTE | 2022-02-16 22:38 | P.PN ---
Subjective Progress Note Date: 02/16/22 Principal diagnosis: Empyema Patient is a 66 year old female presented to hospital with increasing shortness of breath and cough noticed to have left-sided pneumonia subsequent CT was suspicious of possible empyema and is status post fine needle aspirate completed on 02/12/2022. On today's evaluation that is 02/16/2022, the patient continues to be afebrile, the patient is breathing comfortably on room air the patient left-sided chest pain has decreased in intensity, the patient cough is decreased intensity and is bringing up some sputum, the patient denies nausea no vomiting no abdominal pain and no diarrhea with antibiotic therapy Objective - Vital Signs Vital signs: Vital Signs Temp 97.9 F 02/16/22 08:00 Pulse 90 02/16/22 13:01 Resp 17 02/16/22 08:00 BP 99/63 02/16/22 08:00 Pulse Ox 95 02/16/22 08:00 Intake & Output 02/15/22 02/16/22 02/16/22 18:59 06:59 18:59 Other: Voiding Method Toilet Toilet # Voids 3 - Exam GENERAL DESCRIPTION: Middle-age female lying in bed in no distress RESPIRATORY SYSTEM: Unlabored breathing , decreased breath sounds at bases HEART: S1 S2 regular rate and rhythm , ABDOMEN: Soft , no tenderness EXTREMITIES: No edema feet - Labs CBC & Chem 7: 02/14/22 07:15 02/14/22 07:15 Labs: Microbiology - Last 24 Hours (Table) 02/12/22 15:34 Gram Stain - Preliminary Pleural Fluid Body Fluid Culture - Preliminary Assessment and Plan (1) Pleural effusion Current Visit: Yes Status: Acute Code(s): J90 - PLEURAL EFFUSION, NOT ELSEWHERE CLASSIFIED SNOMED Code(s): 57265784 (2) Pneumonia Current Visit: Yes Status: Acute Code(s): J18.9 - PNEUMONIA, UNSPECIFIED ORGANISM SNOMED Code(s): 921090743 Plan: 1patient with a admission to hospital with pneumonia now with evidence of multilocular pleural fluid collection concerning for possible empyema in this patient blood culture was negative and sputum culture has been negative could be a regular community-acquired pathogen 2-patient is status post aspiration of the left pleural fluid cultures are currently pending 3Patient repeat CAT scan did show some improvement, patient to continue with cefepime and clindamycin with a plan for possible PICC line and outpatient IV antibiotic in view of extensive pneumonia Time with Patient: Less than 30
[2022-02-17] MEDS: oxyCODONE-APAP 5-325MG 1 EACH TAB PO PRN ×5 (02:16→19:44)
[2022-02-17] MEDS: CLINDAMYCIN 150 MG CAP PO SCH ×3 (06:08→19:44)
[2022-02-17] MEDS: LEVOTHYROXINE 88 MCG TAB PO SCH (06:08)
[2022-02-17] MEDS: IPRATROPIUM-ALBUTEROL 3 ML NEB INHALATION PRN ×3 (07:14→19:19)
[2022-02-17] MEDS: FLUTICASONE 110 MCG INHALER INHALATION SCH ×2 (07:14→19:18)
[2022-02-17] MEDS: HEPARIN SODIUM,PORCINE/PF 5,000 UNIT/0.5 ML SYRINGE SQ SCH ×3 (07:23→23:00)
[2022-02-17] MEDS: guaiFENesin 600 MG TABLET.ER PO SCH ×2 (07:23→19:49)
[2022-02-17] MEDS: PANTOPRAZOLE 40 MG TABLET PO SCH (07:23)
[2022-02-17] MEDS: CEFEPIME 2 GM in SODIUM CHLORIDE 0.9% 100 ML IVPB SCH ×3 (07:23→23:01)
[2022-02-17 09:20] LABS: Basophils # (A) 0.1 k/uL (0-0.2); Basophils % (A) 1 %; Eosinophils # (A) 0.2 k/uL (0-0.7); Eosinophils % (A) 3 %; HCT 34.2 % (34.0-46.0); HGB 10.5 gm/dL (11.4-16.0); Hypochromasia Slight; Lymphocytes # (A) 1.1 k/uL (1.0-4.8); Lymphocytes % (A) 13 %; MCH 28.9 pg (25.0-35.0); MCHC 30.6 g/dL (31.0-37.0); MCV 94.4 fL (80.0-100.0); Mean Platelet Volume 7.1; Monocytes # (A) 0.6 k/uL (0-1.0); Monocytes % (A) 8 %; Neutrophils % (A) 73 %; Platelet Count 521 k/uL (150-450); RBC 3.62 m/uL (3.80-5.40); RDW 14.8 % (11.5-15.5); WBC 8.2 k/uL (3.8-10.6)
[2022-02-17 09:25] LABS: African American GFR (CKD) >90 (>60 ml/min/1.73 sqM); Anion Gap 8 mmol/L; Blood Urea Nitrogen 19 mg/dL (7-17); Calcium 9.5 mg/dL (8.4-10.2); Carbon Dioxide 27 mmol/L (22-30); Chloride 102 mmol/L (98-107); Glucose 81 mg/dL (74-99); Non-African American GFR(CKD) >90 (>60 ml/min/1.73 sqM); Potassium 3.9 mmol/L (3.5-5.1); Sodium 137 mmol/L (137-145)
--- NOTE | 2022-02-17 13:46 | XR ---
EXAMINATION TYPE: XR chest 1V portable DATE OF EXAM: 02/17/2022 COMPARISON: 02/14/2022 HISTORY: Follow-up pneumonia TECHNIQUE: Single frontal view of the chest is obtained. FINDINGS: Persistent masslike area of consolidation left lower lobe. Hyperinflation suggests COPD an d there is biapical pleural thickening. No sizable pleural effusion. No overt failure. Heart size nor mal. IMPRESSION: Persistent large area of masslike consolidation left lower lobe. Correlate for pneumonia .
--- NOTE | 2022-02-17 14:44 | P.PN ---
Subjective Progress Note Date: 02/17/22 Principal diagnosis: Left-sided pleuritic chest pain This is a very pleasant 66-year-old female patient who follows with Dr. Bueno as her primary care provider. She has a history of hypothyroidism, anxiety, gastroesophageal reflux disease. She had tested positive for CoVID in November 2021. She is not vaccinated. She states she did have pneumonia according to her PCP and was treated with antibiotics and steroids. She's had ongoing issues with recurrent shortness of breath, cough and congestion. She felt that was mostly related to the CoVID infection. Yesterday she presented to the emergency with ongoing symptoms and increasing left-sided rib pain. Chest x-ray and CAT scan of the chest revealed evidence of a lingular pneumonia. Some residual effects of the COVID-19 pneumonia. Sputum culture pending. White count 30.6. Hemoglobin 11.1. Platelets 481. Lymphocytes 1.19. D-dimer 0.74. Sodium 136. Potassium 4.5. BUN 16. Creatinine 0.7. Glucose 138. Walter virus by PCR not detected. She's been initiated on ceftriaxone and azithromycin, DuoNeb inhalations, Flovent, IV Solu-Medrol. Lovenox for DVT prophylaxis. She is seen today in consultation on the regular medical floor. She is up ambulating in her room. Awake and alert in no acute distress. Maintaining good O2 saturation up to 100% on 2 L/m per nasal cannula. She's been afebrile. Hemodynamically stable. All of chest x-ray reveals a moderate left-sided pleural effusion with adjacent subsegmental atelectasis versus infection. Background changes of COPD. The patient is seen today 02/06/2022 in follow-up on the regular medical floor. She is currently sitting up in bed. Awake and alert in no acute distress. She is still having some ongoing issues with left-sided chest discomfort. She is requesting Dilaudid and Percocet on a regular basis. She is maintaining O2 saturations in the mid 90s on room air. No desaturations with activity. Blood cultures revealed no growth. Sputum cultures reveal no growth to date. No new labs today. She is continued on DuoNeb inhalations, IV Solu-Medrol, antibiotics in the form of ceftriaxone and azithromycin. Lovenox for DVT prophylaxis. The patient is seen today 02/07/2022 in follow-up on the regular medical floor. She is currently sitting up in bed. Awake and alert in no acute distress. Doing quite a bit better today compared to yesterday. Maintaining good O2 saturations in the mid 90s on room air. She's been afebrile. Hemodynamically stable. Her left-sided chest discomfort has mainly resolved. No worsening short ness of breath, cough or congestion. Blood cultures reveal no growth. Sputum cultures 2 revealed no growth. White count 19. Hemoglobin 9.7. Sodium 142. Potassium 4.5. BUN 18. Creatinine 0.6. She remains on DuoNeb inhalations, IV Solu-Medrol, antibiotics in the form of clindamycin and azithromycin. Lovenox for DVT prophylaxis. Ultrasound of the chest revealed a 2.5 cm pocket of the left pleural effusion. There was tissue seen anteriorly within the pocket. No plans for thoracentesis. The fluid is loculated and possibly an empyema. She had been seen and evaluated by interventional radiology yesterday who recommended a chest tube placement. However the patient received Lovenox y . The patient is seen today 02/08/2022 in follow-up on the regular medical floor. He continues to improve daily. She is maintaining good O2 saturations in the mid 90s on room air. She's been afebrile. Hemodynamically stable. Chest x-ray continues to show a left lower lobe opacity. Unchanged. Sputum culture revealed no growth. Blood cultures revealed no growth. White count 10.6. Hemoglobin 9.3. Sodium 140. Potassium 4.0. Creatinine 0.6. Urinalysis clear. She remains on antibiotics in the form of cefepime, azithromycin and clindamycin per medicine. Continued on bronchodilators. On 02/09/2022 patient seen in follow-up on medical surgical floor. Today she looks comfortable, she sits up in bed, currently on room air, with pulse ox of 94-98% she's been afebrile, vital signs stable, she still having some left rib chest discomfort, but no acute distress was noted, no worsening shortness of breath. Follow-up chest x-ray today showing mild interstitial prominence, and patchy change at the periphery of the right base, focal airspace opacity at the left base is unchanged. Patient was seen in consultation by CT surgery, and patient is not a candidate for chest tube placement at this time. She continues on cefepime for antibiotic coverage, she is on breathing treatments, she is receiving oral medications for pleuritic chest discomfort. Her blood and sputum cultures have shown no growth. Her labs show significant improvement in her leukocytosis, and her white blood cell count is down to 10.6 compared to 30.6 on 02/05/2022. Hemoglobin is 9.3, electrolytes and renal profile are unremarkable. No altered mentation, no acute distress. Patient was recommended to continue medical treatment right now. On 02/10/2022 patient seen in follow-up on medical surgical floor. She states she is breathing and feeling much better on today's exam, and left-sided rib pain has improved. However she is requesting Motrin if that's okay to have for pain control. She remains on cefepime for antibiotic coverage. She remains on nebulized bronchodilators. All of her cultures are negative thus far including blood and sputum cultures. Today's labs have been noted, her white blood cell, has noted to be increased and is up to 22.1 on today's labs, hemoglobin is 12.3, sodium is 134, dressed electrolytes were Within normal limits, LFTs are within normal limits, urinalysis was negative. Patient has been afebrile, vital signs have been stable, room air pulse ox is 94 200%. Breathing is nonlabored. Follow-up 2 view chest x-ray has been obtained today showing background mild underlying emphysematous changes with left lower lobe infiltrate. On 02/16/2022 patient seen in follow-up on medical surgical floor, she is awake and alert, in no acute distress, she states she is feeling better, left-sided pleuritic chest pain is improved, room air pulse ox is 95%, vital signs have been stable, remains on cefepime and clindamycin for empiric antibiotic coverage. Her blood sputum and pleural fluid cultures have been negative. Today's labs have been reviewed, with difficulty is improving and is down to 10.14, hemoglobin is 10.4, electrolytes and renal profile are unremarkable. Legionella urine antigen was negative. CT chest without IV contrast has been ob tained showing persistent thick lingular atelectasis improved compared the previous computed tomography scan with a recommendation to follow up to complete resolution. There was persistent multiloculated left-sided pleural effusion slightly improved, with newly seen minimal infiltration nodularity in the left lower lobe probably inflammatory/infectious in etiology. Clinically patient has had no acute events overnight. Overall she is feeling better, denies any worsening dyspnea denies any cough or chest discomfort On 02/17/2022 patient seen in follow-up. She is awake and alert, in no acute distress, sitting up in bed, room air pulse ox is 97%. She states her left rib pain is much better although not completely resolved. She remains on cefepime and clindamycin. Her blood, sputum and pleural fluid cultures have been negative thus far. White count is improving on today's labs, white blood cell count is down to 8.2, hemoglobin is 10.5, electrolytes are within normal limits, BUN is 19 creatinine 0.71. No acute events overnight no fever or chills. No increased dyspnea or phlegm production no wheezing. Patient has been ambulating in the room, tolerates activity fairly well, lung sounds reveal some scattered coarse inspiratory crackles at the left base Objective - Vital Signs Vital signs: Vital Signs Temp 97.7 F 02/17/22 08:00 Pulse 93 02/17/22 08:00 Resp 18 02/17/22 08:00 BP 116/70 02/17/22 08:00 Pulse Ox 97 02/17/22 08:00 Intake & Output 02/16/22 02/17/22 02/17/22 18:59 06:59 18:59 Other: Voiding Method Toilet Toilet # Voids 3 # Bowel Movements 1 - Exam GENERAL EXAM: Alert, very pleasant, 66-year-old white female, on room air with pulse ox of 94-100%, comfortable in no apparent distress. HEAD: Normocephalic/atraumatic. EYES: Normal reaction of pupils, equal size. Conjunctiva pink, sclera white. NOSE: Clear with pink turbinates. THROAT: No erythema or exudates. NECK: No masses, no JVD, no thyroid enlargement, no adenopathy. CHEST: No chest wall deformity. Symmetrical expansion. LUNGS: Diminished breath sounds at the bases, with coarse inspiratory crackles at the left base CVS: Regular rate and rhythm, normal S1 and S2, no gallops, no murmurs, no rubs ABDOMEN: Soft, nontender. No hepatosplenomegaly, normal bowel sounds, no guarding or rigidity. EXTREMITIES: No clubbing, no edema, no cyanosis, 2+ pulses and upper and lower extremities. MUSCULOSKELETAL: Muscle strength and tone normal. SPINE: No scoliosis or deformity SKIN: No rashes CENTRAL NERVOUS SYSTEM: Alert and oriented -3. No focal deficits, tone is normal in all 4 extremities. PSYCHIATRIC: Alert and oriented -3. Appropriate affect. Intact judgment and insight. - Labs CBC & Chem 7: 02/17/22 08:45 02/17/22 08:45 Labs: Abnormal Lab Results - Last 24 Hours (Table) 02/17/22 02/17/22 Range/Units 08:45 08:45 RBC 3.62 L (3.80-5.40) m/uL Hgb 10.5 L (11.4-16.0) gm/dL MCHC 30.6 L (31.0-37.0) g/dL Plt Count 521 H (150-450) k/uL BUN 19 H (7-17) mg/dL Microbiology - Last 24 Hours (Table) 02/12/22 15:34 Gram Stain - Final Pleural Fluid Body Fluid Culture - Final Assessment and Plan Plan: Assessment: #1. Acute community acquired pneumonia involving the lingula, with multi loculated information sent she within the pleural effusion pocket on the left. CT surgery was consulted for possible placement of the chest tube however she is currently not a candidate, and medical treatment was recommended. White blood cell is currently improving, vital signs have been stable, follow-up computed tomography scan of the chest shows improved but persistent thick lingular atelectasis, and persistent multiloculated left-sided pleural effusion, with sl ight improvement #2. Left-sided chest wall pain secondary to the above, improved #3. COVID 19 infection in November 2021 #4. Hypothyroidism #5. Anxiety #6. GERD/reflux #7. Hx of smoking, possible history of COPD Plan: Vital signs have been stable patient has been afebrile Patient is feeling and breathing easier Continues on cefepime and clindamycin All cultures remain negative Today's labs have been reviewed Leukocytosis is improved Follow-up chest x-ray has been reviewed, showing persistent area of consolidation in the left lower lobe ID service is on the case, Discharge antibiotics per ID service recommendations Awaiting PICC line placement when the cultures are finalized She will need outpatient follow-up with Dr. Mendes in the office in one week I have personally seen and examined the patient, performed the documentation and the assessment and plan as written. Number of minutes spent on the visit: [10] Time with Patient: Less than 30
--- NOTE | 2022-02-17 16:20 | P.PN ---
Subjective Patient was examined at bedside today continues to be very agitated and wants to be discharge. She denies any shortness of breath, chest pain, palpitation or nausea vomiting. Objective - Vital Signs Vital signs: Vital Signs Temp 98.5 F 02/17/22 14:00 Pulse 89 02/17/22 14:00 Resp 17 02/17/22 14:00 BP 126/78 02/17/22 14:00 Pulse Ox 98 02/17/22 14:00 Intake & Output 02/16/22 02/17/22 02/17/22 18:59 06:59 18:59 Other: Voiding Method Toilet Toilet # Voids 3 # Bowel Movements 1 - Exam Gen: awake, alert HEENT: normocephalic, atraumatic, good hearing acuity, moist mucous membranes Resp: good air exchange, breathing comfortably with no accessory muscle use CVS: good distal perfusion x 4, GI: soft, NTTP, ND : no SPT, no CVAT, conteh catheter not present MSK: no pitting edema, no clubbing Neuro: non-focal, moving all extremities Psych: cooperative, euthymic mood - Labs CBC & Chem 7: 02/17/22 08:45 02/17/22 08:45 Labs: Abnormal Lab Results - Last 24 Hours (Table) 02/17/22 02/17/22 Range/Units 08:45 08:45 RBC 3.62 L (3.80-5.40) m/uL Hgb 10.5 L (11.4-16.0) gm/dL MCHC 30.6 L (31.0-37.0) g/dL Plt Count 521 H (150-450) k/uL BUN 19 H (7-17) mg/dL Microbiology - Last 24 Hours (Table) 02/12/22 15:34 Gram Stain - Final Pleural Fluid Body Fluid Culture - Final Assessment and Plan Assessment: Multifocal pneumonia Loculated left pleural effusion Left rib pain secondary to above -Oxygenation, telemetry. -Duonebs as needed for SOB and/or wheezing -Incentive Spirometry -Steroids: Completed course of steroids with Solu-Medrol with last dose 02/07/22 -Antibiotics: Cefepime and clindamycin; ID consulted will require a PICC line as per their service and final antibiotics as per talent acquisition consultant. -Sputum culture negative, Blood culture showing no growth -Pain control Hypothyroidism levothyroxine. GERD Protonix. CODE STATUS: Full code DVT prophylaxis: heparin
[2022-02-17] MEDS: IBUPROFEN 400 MG TAB PO PRN ×2 (17:05→23:00)
[2022-02-17] MEDS: AMITRIPTYLINE HCL 25 MG TAB PO SCH (19:44)
[2022-02-17] MEDS: ALPRAZolam 0.5 MG TAB PO SCH (19:44)
--- NOTE | 2022-02-17 23:27 | P.PN ---
Subjective Progress Note Date: 02/17/22 Principal diagnosis: Empyema Patient is a 66 year old female presented to hospital with increasing shortness of breath and cough noticed to have left-sided pneumonia subsequent CT was suspicious of possible empyema and is status post fine needle aspirate completed on 02/12/2022. On today's evaluation that is 02/17/2022, the patient remains to be afebrile, the patient is breathing comfortably on room air the patient left-sided chest pain has decreased in intensity, the patient cough has decreased intensity and not bringing up any sputum, the patient denies nausea no vomiting no abdominal pain and no diarrhea with antibiotic therapy Objective - Vital Signs Vital signs: Vital Signs Temp 97.7 F 02/17/22 08:00 Pulse 93 02/17/22 08:00 Resp 18 02/17/22 08:00 BP 116/70 02/17/22 08:00 Pulse Ox 97 02/17/22 08:00 Intake & Output 02/16/22 02/17/22 02/17/22 18:59 06:59 18:59 Other: Voiding Method Toilet Toilet # Voids 3 # Bowel Movements 1 - Exam GENERAL DESCRIPTION: Middle-age female lying in bed in no distress RESPIRATORY SYSTEM: Unlabored breathing , decreased breath sounds at bases HEART: S1 S2 regular rate and rhythm , ABDOMEN: Soft , no tenderness EXTREMITIES: No edema feet - Labs CBC & Chem 7: 02/17/22 08:45 02/17/22 08:45 Labs: Abnormal Lab Results - Last 24 Hours (Table) 02/17/22 02/17/22 Range/Units 08:45 08:45 RBC 3.62 L (3.80-5.40) m/uL Hgb 10.5 L (11.4-16.0) gm/dL MCHC 30.6 L (31.0-37.0) g/dL Plt Count 521 H (150-450) k/uL BUN 19 H (7-17) mg/dL Microbiology - Last 24 Hours (Table) 02/12/22 15:34 Gram Stain - Final Pleural Fluid Body Fluid Culture - Final Assessment and Plan (1) Pleural effusion Current Visit: Yes Status: Acute Code(s): J90 - PLEURAL EFFUSION, NOT ELSEWHERE CLASSIFIED SNOMED Code(s): 67989764 (2) Pneumonia Current Visit: Yes Status: Acute Code(s): J18.9 - PNEUMONIA, UNSPECIFIED ORGANISM SNOMED Code(s): 629097673 Plan: 1patient with a admission to hospital with pneumonia now with evidence of multilocular pleural fluid collection concerning for possible empyema in this patient blood culture was negative and sputum culture has been negative could be a regular community-acquired pathogen 2-patient is status post aspiration of the left pleural fluid cultures are so far negative 3Patient repeat CAT scan did show some improvement, patient to continue with cefepime and clindamycin with a plan for possible PICC line and outpatient IV antibiotic, pillowcase sewer to check the patient coverage if she did have coverage for outpatient IV antibiotics to place a PICC line Time with Patient: Less than 30
[2022-02-18] MEDS: oxyCODONE-APAP 5-325MG 1 EACH TAB PO PRN ×4 (00:19→13:02)
[2022-02-18] MEDS: LEVOTHYROXINE 88 MCG TAB PO SCH (05:53)
[2022-02-18] MEDS: CLINDAMYCIN 150 MG CAP PO SCH ×2 (05:53→13:03)
[2022-02-18] MEDS: IBUPROFEN 400 MG TAB PO PRN ×3 (05:53→14:19)
[2022-02-18 07:21] VITALS: BP 97/60; RESP 17; TEMP 97.9
[2022-02-18] MEDS: CEFEPIME 2 GM in SODIUM CHLORIDE 0.9% 100 ML IVPB SCH (07:50)
[2022-02-18] MEDS: guaiFENesin 600 MG TABLET.ER PO SCH (07:50)
[2022-02-18] MEDS: PANTOPRAZOLE 40 MG TABLET PO SCH (07:50)
[2022-02-18] MEDS: HEPARIN SODIUM,PORCINE/PF 5,000 UNIT/0.5 ML SYRINGE SQ SCH ×2 (07:50→15:15)
[2022-02-18] MEDS: IPRATROPIUM-ALBUTEROL 3 ML NEB INHALATION PRN ×2 (08:24→12:23)
[2022-02-18] MEDS: FLUTICASONE 110 MCG INHALER INHALATION SCH (08:24)
[2022-02-18 09:33] LABS: Basophils # (A) 0.08 X 10*3/uL (0.00-0.10); Basophils % (A) 1.1 %; Eosinophils % (A) 2.8 %; HCT 31.5 % (37.2-46.3); HGB 9.7 g/dL (12.0-15.0); Immature Grans, Automated 4.8 %; Lymphocytes # (A) 1.09 X 10*3/uL (0.90-5.00); Lymphocytes % (A) 15.3 %; MCHC 30.8 g/dL (32.0-37.0); MCV 90.8 fL (80.0-97.0); Mean Platelet Volume 8.9 fL (9.5-12.2); Monocytes % (A) 9.8 %; NRBC Per 100 WBC 0 /100 WBCS (0.0-0.0); Neutrophils # (A) 4.72 X 10*3/uL (1.80-7.70); Neutrophils % (A) 66.2 %; Platelet Count 448 X 10*3/uL (140-440); RBC 3.47 X 10*6/uL (4.10-5.20); RDW 15.3 % (11.5-14.5); WBC 7.13 X 10*3/uL (4.50-10.00)
[2022-02-18 09:53] LABS: African American GFR (CKD) 111.6 (60.0-200.0); Anion Gap 12.1 mmol/L (10.00-18.00); BUN/Creat Ratio 34.83 Ratio (12.00-20.00); Blood Urea Nitrogen 20.9 mg/dL (9.0-27.0); Calcium 9.6 mg/dL (8.7-10.3); Carbon Dioxide 22.9 mmol/L (20.0-27.5); Non-African American GFR(CKD) 96.3 (60.0-200.0); Potassium 4.9 mmol/L (3.5-5.5)
[2022-02-18 12:34] VITALS: PULSE 95
--- NOTE | 2022-02-18 12:54 | P.PN ---
Subjective Patient was examined at bedside today not complaining of any new symptomatology. Case management regarding antibiotics for outpatient. Also correlated with infectious disease as recommended for PICC line tomorrow. Objective - Vital Signs Vital signs: Vital Signs Temp 97.9 F 02/18/22 07:21 Pulse 95 02/18/22 12:33 Resp 17 02/18/22 07:21 BP 97/60 02/18/22 07:21 Pulse Ox 97 02/18/22 07:21 Intake & Output 02/17/22 02/18/22 02/18/22 18:59 06:59 18:59 Intake Total 680 Balance 680 Intake: Intake, IV Titration 200 Amount Cefepime 2 gm In Sodium 200 Chloride 0.9% 100 ml @ 25 mls/hr IVPB Q8HR [facility] Rx# :[id number] Oral 480 Other: # Voids 2 - Exam Gen: awake, alert HEENT: normocephalic, atraumatic, good hearing acuity, moist mucous membranes Resp: good air exchange, breathing comfortably with no accessory muscle use CVS: good distal perfusion x 4, GI: soft, NTTP, ND : no SPT, no CVAT, conteh catheter not present MSK: no pitting edema, no clubbing Neuro: non-focal, moving all extremities Psych: cooperative, euthymic mood - Labs CBC & Chem 7: 02/18/22 05:35 02/18/22 05:35 Labs: Abnormal Lab Results - Last 24 Hours (Table) 02/18/22 02/18/22 Range/Units 05:35 05:35 RBC 3.47 L (4.10-5.20) X 10*6/uL Hgb 9.7 L (12.0-15.0) g/dL Hct 31.5 L (37.2-46.3) % MCHC 30.8 L (32.0-37.0) g/dL RDW 15.3 H (11.5-14.5) % Plt Count 448 H (140-440) X 10*3/uL MPV 8.9 L (9.5-12.2) fL Immature Gran # 0.34 H (0.00-0.04) X 10*3/uL BUN/Creatinine Ratio 34.83 H (12.00-20.00) Ratio Assessment and Plan Assessment: Assessment: #1 multifocal pneumonia #2 loculated left pleural effusion most likely secondary to above #3 hypothyroidism #4 GERD Plan: -Admit to medicine for close monitoring -Continue with IV Rocephin, clindamycin -Continue to follow microbiology final recommendations by infectious disease team. -PICC line pending. -Computed tomography scan completed which showed improvement slightly from previous computed tomography scan. Persistent multi loculated left-sided pl eural effusion improved compared to previous. -Pain control when necessary, continue with incentive spongy -DVT prophylaxis heparin -Steroids: Completed course of steroids with Solu-Medrol with last dose 02/07/22 CODE STATUS: Full code DVT prophylaxis: heparin
--- NOTE | 2022-02-18 14:07 | P.DS ---
Providers Date of admission: 02/04/22 08:11 Attending physician: Sarah Aldana DO Consults: 02/04/22 16:26 Consult Physician Routine Consulting Provider: Jos Jacobs Consult Reason/Comments: Pneumonia with recent Covid infection Do you want consulting provider notified?: Yes, Notify in am 02/07/22 12:09 Consult Physician Routine Consulting Provider: Gentry Pfeiffer Consult Reason/Comments: RLL loculated effusion Do you want consulting provider notified?: Yes 02/07/22 12:43 Consult Physician Routine Consulting Provider: Kelsea Llamas Consult Reason/Comments: empyema Do you want consulting provider notified?: Yes 02/11/22 17:50 Consult Physician Routine Consulting Provider: Roman Mccullough Consult Reason/Comments: LLL consolidation possible empyema vs loculated effusion, WBC increasing Do you want consulting provider notified?: Yes Primary care physician: Barbra Bueno MD Hospital Course: Patient is a very pleasant 66-year-old female with a past medical history of hypothyroidism, GERD, and recent infection with Covid pneumonia back in November 2021. Patient presented to the emergency department with a chief complaint of shortness of breath and cough. Patient reports full resolution of symptoms from previous Covid infection back in November and approximately 2 weeks ago began developing shortness of breath and cough. 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 Patient reports over the last 2 weeks her symptoms have significantly increased and worsened so she came to the emergency department for evaluation..Labs revealing leukocytosis with WBC count 24.6 with left shift, thrombocytosis with platelet count of 666. Elevated d-dimer at 0.74 with normal troponin at less than 0.012. ProBNP of 169. And hypomagnesemia with magnesium of 1.5. Chest x- ray revealing suspected left lower lobe pneumonia versus consolidation versus collapse. CTA showing no evidence for PE with multifocal pneumonia. EKG showing sinus tachycardia at 133 bpm with no noted T-wave or ST abnormalities. Covid PCR obtained and negative. Patient was admitted to our services with consultation to pulmonology. Upon physical examination patient reports significant pain throughout left ribs worse with coughing. She states that her current pain as 9 out of 10 in her left ribs. Patient denies having any fevers, chills, headache, lightheadedness, dizziness, chest pain or palpitations, abdominal pain, nausea, vomiting, or experiencing any numbness/tingling/weakness in her extremities. Patient has been evaluated by pulmonary and infectious disease. Patient has been admitted for pneumonia with evidence of multilocular pleural fluid collection concerning for possible empyema and the patient blood culture was negative. Blood cultures were also completed negative. Status post aspiration of left pleural fluid with cultures. Patient was started on IV antibiotics with cefepime and clindamycin. At this time the patient is okay by company of any shortness of breath, chest pain or palpitations. Patient has been evaluated by pulmonary. Is stable patient saturating 90% on room air. At this time the patient is getting a midline put in and will be sent home on antimicrobials as per infectious disease team. The patient is cleared by ID and pulmonary. Patient says to follow-up with infectious disease and pulmonary and PCP within 1 week of discharge. Prescription for pain medication left with RN. All questions were answered. Patient is very anxious to be discharged today. CT chest without IV contrast has been obtained showing persistent thick lingular atelectasis improved compared the previous computed tomography scan with a recommendation to follow up to complete resolution. There was persistent multiloculated left-sided pleural effusion slightly improved, with newly seen minimal infiltration nodularity in the left lower lobe probably inflammatory/infectious in etiology. Patient Condition at Discharge: Fair Plan - Discharge Summary Discharge Rx Participant: No New Discharge Prescriptions: New Ipratropium-Albuterol Nebulize [Duoneb 0.5 mg-3 mg/3 ml Soln] 3 ml INHALATION QID 30 Days #6 pack cefTRIAXone [Rocephin] 2,000 mg IVP Q24HR #14 each Continue ALPRAZolam [Xanax] 0.5 mg PO HS Amitriptyline HCl [Elavil] 25 mg PO HS Pantoprazole [Protonix] 40 mg PO DAILY Beclomethasone Dip 80 Mcg/Puff [Qvar 80 mcg] 2 puff INHALATION RT-BID Levothyroxine Sodium [Synthroid] 88 mcg PO DAILY Albuterol Inhaler [Ventolin Hfa Inhaler] 1 - 2 puff INHALATION RT-Q4H PRN PRN Reason: Shortness Of Breath Discontinued Levofloxacin [Levaquin] 500 mg PO DAILY Discharge Medication List ALPRAZolam [Xanax] 0.5 mg PO HS 10/08/21 [History] Amitriptyline HCl [Elavil] 25 mg PO HS 10/08/21 [History] Pantoprazole [Protonix] 40 mg PO DAILY 10/08/21 [History] Albuterol Inhaler [Ventolin Hfa Inhaler] 1 - 2 puff INHALATION RT-Q4H PRN 02/04/22 [History] Beclomethasone Dip 80 Mcg/Puff [Qvar 80 mcg] 2 puff INHALATION RT-BID 02/04/22 [History] Levothyroxine Sodium [Synthroid] 88 mcg PO DAILY 02/04/22 [History] Ipratropium-Albuterol Nebulize [Duoneb 0.5 mg-3 mg/3 ml Soln] 3 ml INHALATION QID 30 Days #6 pack 02/16/22 [Rx] cefTRIAXone [Rocephin] 2,000 mg IVP Q24HR #14 each 02/18/22 [Rx] Follow up Appointment(s)/Referral(s): [facility] [NON-STAFF] - As Needed (nebulizer) Jos Jacobs DO [Doctor of Osteopathic Medicine] - 1 Week [facility] [NON-STAFF] - As Needed Care,[facility] [NON-STAFF] - As Needed Barbra Bueno MD [Primary Care Provider] - 1-2 days Roman Mccullough MD [STAFF PHYSICIAN] - 1 Week Jacinto Reis MD [STAFF PHYSICIAN] - 1 Week Patient Instructions/Handouts: Pleural Effusion (DC), Community Acquired Pneumonia (DC) Discharge Disposition: HOME WITH HOME HEALTH SERVICES
== END 2022-02-18 15:38 | disposition home health service (06) | DRG 193 ==
LOC: EC 05:43 → 4SSUR 08:11
PROVIDERS: ADMIT Internal Medicine; ATTEND Internal Medicine
PROC: 0W9B3ZX Drainage of Left Pleural Cavity, Percutaneous Approach, Diagnostic (ICD-10-PCS; principal; 2022-02-12)
PROC: 05HB33Z Insertion of Infusion Device into Right Basilic Vein, Percutaneous Approach (ICD-10-PCS; 2022-02-18 16:55)
DX: J18.9 Pneumonia, unspecified organism (principal); J86.9 Pyothorax without fistula; J91.8 Pleural effusion in other conditions classified elsewhere; J98.11 Atelectasis; J44.0 Chronic obstructive pulmonary disease with (acute) lower respiratory infection; Z86.16 Personal history of COVID-19; F41.9 Anxiety disorder, unspecified; D75.839 Thrombocytosis, unspecified; E03.9 Hypothyroidism, unspecified; E83.42 Hypomagnesemia; R45.1 Restlessness and agitation; K58.9 Irritable bowel syndrome, unspecified; K21.9 Gastro-esophageal reflux disease without esophagitis; Z20.822 Contact with and (suspected) exposure to COVID-19; Z79.890 Hormone replacement therapy; Z79.899 Other long term (current) drug therapy; Z82.49 Family history of ischemic heart disease and other diseases of the circulatory system; Z82.5 Family history of asthma and other chronic lower respiratory diseases; Z83.3 Family history of diabetes mellitus; Z87.891 Personal history of nicotine dependence; Z90.710 Acquired absence of both cervix and uterus; Z98.890 Other specified postprocedural states; Z53.20 Procedure and treatment not carried out because of patient's decision for unspecified reasons; Z87.01 Personal history of pneumonia (recurrent)
CPT/HCPCS: 10005; 36410; 36415; 71045; 71046; 71250; 71260; 71275; 76604; 76937; 80048; 80053; 81003; 83605; 83735; 83880; 84100; 84145; 84484; 85025; 85379; 85610; 85730; 87040; 87070; 87102; 87116; 87205; 87206; 87449; 87635; 93005; 94640; 94760; 96361; 96374; 96375; 96376; 99285

== ENCOUNTER → 2022-03-30 | Outpatient (CLI) | payer BC ==
--- NOTE | 2022-03-30 16:59 | CT ---
EXAMINATION TYPE: CT chest w con DATE OF EXAM: 03/30/2022 COMPARISON: CT chest 02/16/2022, CT chest 02/11/2022 HISTORY: h/o recent pheumonia, SOB CT DLP: 147.8 mGycm Automated exposure control for dose reduction was used. CONTRAST: CT scan of the chest is performed with IV Contrast, patient injected with 100 mL of Isovue 300. FINDINGS: LUNGS: The lungs show some parenchymal bands, areas of probable atelectasis or scarring, centrilobula r emphysematous changes are present, some minimal residual abnormal soft tissue present in the periph eral aspect of the lingula with some probable bronchiectasis, scarring however there are air bronchog ly at this level peripherally. Nodular density on axial image #39 in the left upper lobe anteriorl y is somewhat less conspicuous and may reflect scarring. There is no pleural effusion or pneumothorax seen. The tracheobronchial tree is patent. MEDIASTINUM: There is right hilar low attenuation suggesting some borderline adenopathy, prevascular node has decreased in size. No pericardial effusion is seen. Triangular-shaped calcification is pr esent along the anterior mediastinum as on prior exam AORTA: No additional significant abnormality is seen. OTHER: No additional significant abnormality is seen. IMPRESSION: There is improvement as described. Some residual right hilar adenopathy is again seen
== END | disposition home or self-care (01) ==
LOC: RADCTMAIN 15:45
PROVIDERS: ATTEND Internal Medicine Critical Care Medicine
DX: R59.0 Localized enlarged lymph nodes (principal)
CPT/HCPCS: 71260; Q9967

== ENCOUNTER → 2022-04-06 | Outpatient (CLI) | payer BC ==
[2022-04-06 22:41] LABS: Basophils # (A) 0.09 X 10*3/uL (0.00-0.10); Eosinophils % (A) 1.1 %; HCT 40.6 % (37.2-46.3); HGB 13.1 g/dL (12.0-15.0); Immature Grans, Automated 0.3 %; Lymphocytes # (A) 1.74 X 10*3/uL (0.90-5.00); Lymphocytes % (A) 19.8 %; MCH 29.4 pg (27.0-32.0); MCHC 32.3 g/dL (32.0-37.0); MCV 91.2 fL (80.0-97.0); Monocytes # (A) 0.66 X 10*3/uL (0.20-1.00); Monocytes % (A) 7.5 %; NRBC Per 100 WBC 0 /100 WBCS (0.0-0.0); Neutrophils # (A) 6.16 X 10*3/uL (1.80-7.70); Neutrophils % (A) 70.3 %; Platelet Count 287 X 10*3/uL (140-440); RBC 4.45 X 10*6/uL (4.10-5.20); RDW 15.3 % (11.5-14.5); WBC 8.78 X 10*3/uL (4.50-10.00)
[2022-04-06 22:45] LABS: African American GFR (CKD) 106.1 (60.0-200.0); Albumin 4.5 g/dL (3.8-4.9); Albumin/Globulin Ratio 1.88 (1.60-3.17); Anion Gap 8.6 mmol/L (10.00-18.00); BUN/Creat Ratio 17.29 Ratio (12.00-20.00); Blood Urea Nitrogen 12.1 mg/dL (9.0-27.0); Calcium 9.9 mg/dL (8.7-10.3); Carbon Dioxide 25.4 mmol/L (20.0-27.5); Globulin 2.4 g/dL (1.6-3.3); Non-African American GFR(CKD) 91.6 (60.0-200.0); Potassium 4.3 mmol/L (3.5-5.5); Total Bilirubin 0.4 mg/dL (0.30-1.20); Total Protein 6.9 g/dL (6.2-8.2)
== END | disposition home or self-care (01) ==
LOC: LABWHC1 16:00
PROVIDERS: ATTEND Internal Medicine Critical Care Medicine
DX: J18.1 Lobar pneumonia, unspecified organism (principal)
CPT/HCPCS: 36415; 80053; 85025

== ENCOUNTER → 2022-07-27 | Outpatient (CLI) | payer BC ==
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
--- NOTE | 2022-07-27 10:01 | MM ---
Reason for Exam: Screening (asymptomatic). Last mammogram was performed 3 year(s) and 1 month(s) ago. Patient History: Menarche at age 12. First Full-Term at age 28. Hysterectomy at age 49. Postmenopausal. 1992, Benign Excisional Biopsy on the left side. Maternal grandmother had breast cancer, age 46. Risk Values: Christiana 5 year model risk: 2.3%. NCI Lifetime model risk: 9.2%. Prior Study Comparison: 07/02/2014 Bilateral Screening Mammogram, [facility]. 10/20/2016 Bilateral Screening Mammogram, [facility]. 06/23/2019 Bilateral Screening Mammogram, [facility]. Tissue Density: The breast tissue is heterogeneously dense. This may lower the sensitivity of mammography. Findings: Analyzed By CAD. There is no suspicious group of microcalcifications or new suspicious mass in either breast. Overall Assessment: Negative, BI-RAD 1 Management: Screening Mammogram of both breasts in 1 year. A clinical breast exam by your physician is recommended on an annual basis and results should be correlated with mammographic findings. Electronically signed and approved by: Jos Juarez DO
== END | disposition home or self-care (01) ==
LOC: RADBDWWP 07:14
PROVIDERS: ATTEND Internal Medicine
DX: Z12.31 Encounter for screening mammogram for malignant neoplasm of breast (principal); M85.851 Other specified disorders of bone density and structure, right thigh; Z78.0 Asymptomatic menopausal state
CPT/HCPCS: 77063; 77067; 77080

== ENCOUNTER → 2022-07-31 | Outpatient (CLI) | payer BC ==
--- NOTE | 2022-07-31 14:42 | PE ---
EXAMINATION TYPE: PET CT fusion skull to thigh DATE OF EXAM: 07/31/2022 COMPARISON: Chest CT March 30, 2022 HISTORY: Solitary pulmonary nodule, abnormal CT TECHNIQUE: Following the intravenous administration of 9.0 mCi of F-18 FDG, whole body images are pe rformed from the skull base to the midthigh. Images are reviewed on the computer in the coronal, axi al, and sagittal planes. Reconstructed rotating images are created on independent workstation and re viewed on the computer. A localization and attenuation correction CT is performed in conjunction wi th the PET scan. Blood glucose level equals 93 SCAN: Initial Scan FINDINGS: SKULL BASE AND NECK: No abnormal hypermetabolic uptake. CHEST, MEDIASTINUM, AND HILAR REGION: Mild to moderate bilateral mid to lower lung linear scarring re demonstrated. No areas of abnormal hypermetabolic uptake. Less well-visualized prominent low dense an terior right hilar lymph node near axial image 96 is ametabolic. ABDOMEN AND PELVIS: Normal excretion. No adrenal masses. No areas of abnormal hypermetabolic uptake. OSSEOUS STRUCTURES: No areas of abnormal hypermetabolic uptake. OTHER CT: Mild calcified plaque bilateral carotid bulb level. Thyroid gland is small in size or atrop hic. Correlate clinically. Prominent Calcification anterior superior mediastinum anterior to ascendin g aorta redemonstrated. Uterus surgically absent. Facet arthropathy in the mid to lower lumbar spine. IMPRESSION: No abnormal hypermetabolic uptake to suggest neoplasm with particular attention to the pr ominent right hilar lymph node.
== END | disposition home or self-care (01) ==
LOC: RADPETMAIN 11:32
PROVIDERS: ATTEND Internal Medicine Critical Care Medicine
DX: R91.8 Other nonspecific abnormal finding of lung field (principal)
CPT/HCPCS: 78815; A9552

== ENCOUNTER → 2022-09-23 | Outpatient (CLI) | payer BC ==
--- NOTE | 2022-09-23 13:18 | CT ---
EXAMINATION TYPE: CT chest w con DATE OF EXAM: 09/23/2022 COMPARISON: Chest CT March 30, 2022 and older studies. Most recent PET/CT July 31, 2022 HISTORY: Lobar Pneumonia, unspecified organism CT DLP: 154.80 mGycm. Automated Exposure Control for Dose Reduction was Utilized. TECHNIQUE: CT scan of the thorax is performed following with IV Contrast, patient injected with 70 m l mL of Isovue 300. FINDINGS: LUNGS: Mild biapical pleural/parenchymal scarring redemonstrated. Mild bibasilar linear scarring and/ or atelectasis redemonstrated. No suspicious greater than 5 mm pulmonary nodules or masses. There i s no pleural effusion or pneumothorax seen. The tracheobronchial tree is patent. MEDIASTINUM: There are no new greater than 1 cm hilar or mediastinal lymph nodes. Stable prominent pasquale rderline enlarged anterior right hilar lymph nodes coronal image 42 . No cardiomegaly or pericardial effusion is seen. Stable calcified anterior with long nodule or lymph node axial image 23 presumed b enign. OTHER: Slight S-shaped scoliosis. IMPRESSION: No suspicious focal consolidation or groundglass opacity. No new mass or suspicious adeno virgilio noted.
== END | disposition home or self-care (01) ==
LOC: RADCTMAIN 11:40
PROVIDERS: ATTEND Internal Medicine Critical Care Medicine
DX: J18.1 Lobar pneumonia, unspecified organism (principal)
CPT/HCPCS: 71260; Q9967

== ENCOUNTER → 2022-12-16 | Outpatient (CLI) | payer BC ==
--- NOTE | 2022-12-16 16:04 | US ---
EXAMINATION TYPE: US venous doppler duplex LE RT DATE OF EXAM: 12/16/2022 3:48 PM COMPARISON: NONE CLINICAL HISTORY: I80.01 PHLEBITIS AND THOMBOPHLB OF SUPERFIC VESSEL. SIDE PERFORMED: Right TECHNIQUE: The lower extremity deep venous system is examined utilizing real time linear array sonog gilmar with graded compression, doppler sonography and color-flow sonography. VESSELS IMAGED: Common Femoral Vein Deep Femoral Vein Greater Saphenous Vein * Femoral Vein Popliteal Vein Small Saphenous Vein * Proximal Calf Veins (* superficial vessels) Grayscale, color doppler, spectral doppler imaging performed of the deep veins of the lower extremiti es. There is normal flow, compressibility, vascular waveforms. Right Leg: Negative for DVT IMPRESSION: No deep venous thrombosis of the right lower extremity.
== END | disposition home or self-care (01) ==
LOC: RADUSWWP 15:18
PROVIDERS: ATTEND Internal Medicine
DX: I80.01 Phlebitis and thrombophlebitis of superficial vessels of right lower extremity (principal)

== ENCOUNTER → 2023-05-24 | Outpatient (CLI) | payer BC ==
[2023-05-24 12:09] LABS: Appearance,Urine Clear (Clear); Bilirubin,Urine Negative (Negative); Blood,Urine Negative (Negative); Color,Urine Yellow; Glucose,Urine (UA) Negative (Negative); Ketones,Urine Negative (Negative); Leukocyte Esterase,Urine Negative (Negative); Nitrite,Urine Negative (Negative); PH, Urine 6.5 (5.0-8.0); Protein,Urine Negative (Negative); Specific Gravity,Urine 1.016 (1.001-1.035); Urobilinogen,Urine <2.0 mg/dL (<2.0)
[2023-05-24 16:44] LABS: Basophils # (A) 0.07 X 10*3/uL (0.00-0.10); Basophils % (A) 1.8 %; Eosinophils # (A) 0.11 X 10*3/uL (0.04-0.35); Eosinophils % (A) 2.8 %; HCT 39.9 % (37.2-46.3); HGB 12.9 d/dL (12.0-15.0); Lymphocytes # (A) 1.31 X 10*3/uL (0.90-5.00); Lymphocytes % (A) 32.8 %; MCH 29.4 pg (27.0-32.0); MCHC 32.3 d/dL (32.0-37.0); MCV 90.9 FL (80.0-97.0); Mean Platelet Volume 10.3 FL (9.5-12.2); Monocytes # (A) 0.43 X 10*3/uL (0.20-1.00); Monocytes % (A) 10.8 %; NRBC Per 100 WBC 0 X 10*3/uL (0.00-0.01); Neutrophils # (A) 2.06 X 10*3/uL (1.80-7.70); Neutrophils % (A) 51.3 %; Platelet Count 226 X 10*3/uL (140-440); RBC 4.39 X 10*6/uL (4.10-5.20); RDW 12.2 % (11.5-14.5)
[2023-05-24 16:57] LABS: ALT 14 U/L (8-44); AST 17 U/L (13-35); Albumin 4.4 d/dL (3.8-4.9); Albumin/Globulin Ratio 2.32 Ratio (1.60-3.17); Alkaline Phosphatase 89 U/L (41-126); BUN/Creat Ratio 29.43 Ratio (12.00-20.00); Blood Urea Nitrogen 20.6 mg/dL (9.0-27.0); Calcium 9.8 mg/dL (8.7-10.3); Carbon Dioxide 24.9 mmol/L (21.6-31.8); Chloride 108 mmol/L (96-109); Chol/HDL Ratio 2.78 Ratio; Globulin 1.9 d/dL (1.6-3.3); Glucose 89 mg/dL (70-110); LDL Cholesterol,Calculated 113.7 mg/dL (0.0-131.0); Potassium 4.2 mmol/L (3.5-5.5); Sodium 143 mmol/L (135-145); T4, Free (Free Thyroxine) 1.49 ng/dL (0.80-1.80); Total Bilirubin 0.3 mg/dL (0.3-1.2); Total Protein 6.3 d/dL (6.2-8.2); VLDL Calculation 9.82 mg/dL (5.00-40.00)
== END | disposition home or self-care (01) ==
LOC: LABWHC1 11:15
PROVIDERS: ATTEND Internal Medicine
DX: K21.9 Gastro-esophageal reflux disease without esophagitis (principal); E03.9 Hypothyroidism, unspecified; R30.0 Dysuria; R79.9 Abnormal finding of blood chemistry, unspecified
CPT/HCPCS: 36415; 80053; 80061; 81003; 83036; 84439; 84443; 85025

== ENCOUNTER 2024-01-04 06:38 | Day surgery (SDC) | payer BC ==
[~2024-01-04 06:38] MED LIST changes: -ACETAMINOPHEN TAB 500 MG TAB PO PRN; -DEXAMETHASONE SOD PHOSPHATE 4 MG/ML 1 ML VIAL IV ONE; -HEPARIN SODIUM,PORCINE/PF 5,000 UNIT/0.5 ML SYRINGE SQ PRN; -HYDROmorphone 0.5 MG/0.5 ML SYRINGE IVP PRN; -LACTATED RINGERS 1,000 ML IV SCH; +LIDOCAINE 1% (10MG/ML) FOR IV START INTRADERMA PRN; -MIDAZOLAM 2 MG/2 ML VIAL IV PRN; -SCOPOLAMINE 1.5MG/72HR PATCH TRANSDERM ONE
[2024-01-04] MEDS: LACTATED RINGERS 1,000 ML IV SCH (06:54)
[2024-01-04 07:33] VITALS: RESP 16; TEMP 97.8
[2024-01-04] MEDS ORDERED: LIDOCAINE 1% INJ 10MG/ML (20 ML MDV) ONE (07:39)
[2024-01-04] MEDS ORDERED: PROPOFOL 10 MG/ML 20 ML VIAL IV ONE (07:39)
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
--- NOTE | 2024-01-04 08:03 | P.PCN ---
Date of Procedure: 01/04/24 Procedure(s) Performed: PREOPERATIVE DIAGNOSIS: GERD, history of Griffith's, screening POSTOPERATIVE DIAGNOSIS: Gastritis, small hiatal hernia, mild distal esophagitis, small hemorrhoids PROCEDURE: 1. EGD with biopsy 2. [place]oscopy [place] [facility] [place]: Edin Comer M.D. SPECIMENS: Antrum, distal esophagus ENDOSCOPIC PROCEDURE: The patient was on the endoscopy table in the left decubitus position. The Olympus gastroscope was inserted into the oropharynx and passed under direct visualization to the region of the third portion of the duodenum. From that point the scope was slowly withdrawn inspecting all surfaces carefully. There were no neoplastic inflammatory or polypoid lesions throughout the duodenum. The pylorus was widely patent. The stomach was carefully inspected. There was gastritis present primarily in the prepyloric region and antrum. A biopsy of the antrum took place to rule out H. pylori. Retroflexion revealed a small sliding hiatal hernia. The GE junction was present 1 cm above the diaphragmatic hiatus. At the distal esophagus there were 2 small linear erosions measuring less than 1 cm. No definite visible signs of Griffith's esophagus were noted. Biopsy of the distal esophagitis did place. The remainder the esophagus appeared normal. The patient was kept on the endoscopy table in the left decubitus position. The Olympus colonoscope was inserted into the anus and passed under direct visualization to the base of the cecum. The appendiceal orifice was visualized. From that point the scope was slowly withdrawn inspecting all surfaces carefully. There were no neoplastic inflammatory or polypoid lesions throughout the cecum, ascending, transverse, descending, sigmoid and rectum. There was no visible diverticulosis noted. Digital rectal examination revealed small internal and external hemorrhoids. The patient was taken to the recovery room in stable condition per anesthesia guidelines. RECOMMENDATIONS: Resume diet. Await biopsy results. Repeat colonoscopy 10 years. Continue antiacid therapy.
[2024-01-04 08:35] VITALS: BP 100/67; PULSE 76
== END 2024-01-04 08:49 | disposition home or self-care (01) ==
LOC: ORWHC2ENDO 06:38
PROVIDERS: ATTEND Surgery
DX: K21.00 Gastro-esophageal reflux disease with esophagitis, without bleeding (principal); K29.70 Gastritis, unspecified, without bleeding; K22.70 Barrett's esophagus without dysplasia; K44.9 Diaphragmatic hernia without obstruction or gangrene; K64.8 Other hemorrhoids; K64.4 Residual hemorrhoidal skin tags; E07.9 Disorder of thyroid, unspecified; Z88.0 Allergy status to penicillin; Z88.2 Allergy status to sulfonamides; Z91.040 Latex allergy status; K58.0 Irritable bowel syndrome with diarrhea; Z79.890 Hormone replacement therapy; Z79.899 Other long term (current) drug therapy; Z87.891 Personal history of nicotine dependence
CPT/HCPCS: 88305; 45378; 43239; J2001; J2704

== ENCOUNTER → 2024-01-17 | Outpatient (CLI) | payer BC ==
[2024-01-18 02:13] LABS: ALT 13 U/L (8-44); AST 17 U/L (13-35); Albumin 4.6 g/dL (3.8-4.9); Alkaline Phosphatase 90 U/L (41-126); BUN/Creat Ratio 16.29 Ratio (12.00-20.00); Blood Urea Nitrogen 11.4 mg/dL (9.0-27.0); Calcium 10.3 mg/dL (8.7-10.3); Chloride 104 mmol/L (96-109); Chol/HDL Ratio 2.48 Ratio; Glucose 85 mg/dL (70-110); LDL Cholesterol,Calculated 69.8 mg/dL (0.0-131.0); Potassium 4.3 mmol/L (3.5-5.5); Sodium 140 mmol/L (135-145); Total Bilirubin 0.3 mg/dL (0.3-1.2); Total Protein 6.6 g/dL (6.2-8.2)
[2024-01-18 02:17] LABS: HCT 38.5 % (37.2-46.3); MCH 30.5 pg (27.0-32.0); MCHC 33.8 g/dL (32.0-37.0); MCV 90.4 FL (80.0-97.0); Mean Platelet Volume 9.8 FL (9.5-12.2); NRBC Per 100 WBC 0 X 10*3/uL (0.00-0.01); Platelet Count 277 X 10*3/uL (140-440); RBC 4.26 X 10*6/uL (4.10-5.20); RDW 12.6 % (11.5-14.5); WBC 4.78 X 10*3/uL (4.50-10.00)
== END | disposition home or self-care (01) ==
LOC: LABWHC1 16:35
PROVIDERS: ATTEND Internal Medicine
DX: E03.9 Hypothyroidism, unspecified (principal); K21.9 Gastro-esophageal reflux disease without esophagitis; M85.851 Other specified disorders of bone density and structure, right thigh
CPT/HCPCS: 36415; 80053; 80061; 82306; 84443; 85027

== ENCOUNTER → 2024-02-08 | Outpatient (CLI) | payer BC ==
--- NOTE | 2024-02-08 14:38 | XR ---
EXAMINATION TYPE: XR chest 2V DATE OF EXAM: 02/08/2024 COMPARISON: 08/23/2023. HISTORY: Shortness of breath. TECHNIQUE: Frontal and lateral views of the chest are obtained. IMPRESSION: There is some mild reticular changes seen with mid to lower lungs bilaterally which are new since the previous examination and could be inflammatory or infectious and bronchial wall thickening. There is no focal consolidation. The cardiac silhouette and pulmonary vessels are within normal limits.
== END | disposition home or self-care (01) ==
LOC: RADXRMAIN 11:46
PROVIDERS: ATTEND Internal Medicine
DX: R06.02 Shortness of breath (principal)
CPT/HCPCS: 71046

== ENCOUNTER → 2024-06-16 | Outpatient (CLI) | payer BC ==
[2024-06-16 11:55] LABS: Appearance,Urine Clear (Clear); Bilirubin,Urine Negative (Negative); Blood,Urine Negative (Negative); Color,Urine Colorless; Glucose,Urine (UA) Negative (Negative); Ketones,Urine Negative (Negative); Leukocyte Esterase,Urine Negative (Negative); Nitrite,Urine Negative (Negative); Protein,Urine Negative (Negative); Specific Gravity,Urine 1.003 (1.001-1.035); Urobilinogen,Urine <2.0 mg/dL (<2.0)
[2024-06-16 15:17] LABS: Basophils % (A) 1.4 %; Eosinophils # (A) 0.08 X 10*3/uL (0.04-0.35); Eosinophils % (A) 1.1 %; HGB 13.6 g/dL (12.0-15.0); Lymphocytes # (A) 1.78 X 10*3/uL (0.90-5.00); Lymphocytes % (A) 24.4 %; MCH 29.8 pg (27.0-32.0); MCHC 33.2 g/dL (32.0-37.0); MCV 89.7 FL (80.0-97.0); Mean Platelet Volume 9.8 FL (9.5-12.2); Monocytes # (A) 0.58 X 10*3/uL (0.20-1.00); Monocytes % (A) 7.9 %; NRBC Per 100 WBC 0 X 10*3/uL (0.00-0.01); Neutrophils # (A) 4.75 X 10*3/uL (1.80-7.70); Neutrophils % (A) 64.9 %; Platelet Count 408 X 10*3/uL (140-440); RBC 4.57 X 10*6/uL (4.10-5.20); RDW 12.6 % (11.5-14.5); WBC 7.31 X 10*3/uL (4.50-10.00)
[2024-06-16 15:55] LABS: ALT 14 U/L (8-44); AST 20 U/L (13-35); Albumin 4.4 g/dL (3.8-4.9); Albumin/Globulin Ratio 1.69 Ratio (1.60-3.17); Alkaline Phosphatase 117 U/L (41-126); BUN/Creat Ratio 21.14 Ratio (12.00-20.00); Blood Urea Nitrogen 14.8 mg/dL (9.0-27.0); Chloride 105 mmol/L (96-109); Chol/HDL Ratio 2.81 Ratio; Globulin 2.6 g/dL (1.6-3.3); Glucose 89 mg/dL (70-110); LDL Cholesterol,Calculated 102.5 mg/dL (0.0-131.0); Magnesium 1.7 mg/dL (1.5-2.4); Potassium 4.2 mmol/L (3.5-5.5); Sodium 141 mmol/L (135-145); Total Bilirubin 0.3 mg/dL (0.3-1.2); VLDL Calculation 14.78 mg/dL (5.00-40.00)
[2024-06-16 18:46] LABS: Urine Alcohol Negative (Negative); Urine Barbiturate Negative (Negative); Urine Cocaine Negative (Negative); Urine Methadone Negative (Negative); Urine Opiates Negative (Negative); Urine Phencyclidine Negative (Negative)
== END | disposition home or self-care (01) ==
LOC: LABWHC1 11:04
PROVIDERS: ATTEND Internal Medicine
DX: E03.9 Hypothyroidism, unspecified (principal); K21.9 Gastro-esophageal reflux disease without esophagitis; F51.04 Psychophysiologic insomnia; G47.01 Insomnia due to medical condition; F90.9 Attention-deficit hyperactivity disorder, unspecified type; Z79.899 Other long term (current) drug therapy
CPT/HCPCS: 36415; 80053; 80061; 80306; 81003; 82306; 83735; 84443; 85025

== ENCOUNTER → 2024-06-29 | Outpatient (CLI) | payer BC ==
--- NOTE | 2024-07-25 11:50 | MM ---
Reason for Exam: Screening (asymptomatic). Last mammogram was performed 2 year(s) and 0 month(s) ago. Patient History: Menarche at age 12. First Full-Term at age 28. Hysterectomy at age 49. Postmenopausal. 1992, Benign Excisional Biopsy on the left side. Maternal grandmother had breast cancer, age 46. Risk Values: Christiana 5 year model risk: 2.4%. NCI Lifetime model risk: 8.6%. Prior Study Comparison: 10/20/2016 Bilateral Screening Mammogram, [facility]. 06/23/2019 Bilateral Screening Mammogram, [facility]. 07/27/2022 Bilateral MG 3D screening mammo w/cad, [facility]. Tissue Density: The breasts are heterogeneously dense, which may obscure small masses. Findings: Analyzed By CAD. There is no suspicious group of microcalcifications or new suspicious mass in either breast. Overall Assessment: Benign, BI-RAD 2 Management: Screening Mammogram of both breasts in 1 year. Patient should continue monthly self-breast exams. A clinical breast exam by your physician is recommended on an annual basis. This exam should not preclude additional follow-up of suspicious palpable abnormalities. Note on Christiana scores and lifetime risk: 1. A Christiana score greater than 3% is considered moderate risk. If this is the case, consider specialist referral to assess eligibility for a risk reducing agent. 2. If overall lifetime risk for the development of breast cancer is 20% or higher, the patient may qualify for future screening with alternating mammogram and breast MRI. Electronically signed and approved by: Bird Shell M.D. Radiologis
== END | disposition home or self-care (01) ==
LOC: RADMAMWWP 12:17
PROVIDERS: ATTEND Internal Medicine
DX: Z12.31 Encounter for screening mammogram for malignant neoplasm of breast (principal); Z78.0 Asymptomatic menopausal state; Z80.3 Family history of malignant neoplasm of breast; R92.333 Mammographic heterogeneous density, bilateral breasts
CPT/HCPCS: 77063; 77067

== ENCOUNTER → 2024-08-01 | Outpatient (CLI) | payer BC ==
--- NOTE | 2024-08-01 16:32 | US ---
EXAMINATION TYPE: US carotid duplex BILAT DATE OF EXAM: 08/01/2024 COMPARISON: NONE CLINICAL INDICATION: Female, 68 years old with history of I65.23 CAROTID STENOSIS; Stenosis TECHNIQUE: Carotid duplex ultrasound examination. Indirect Doppler criteria was utilized. FINDINGS: EXAM MEASUREMENTS: RIGHT: Peak Systolic Velocity (PSV) cm/sec ----- Right CCA: 53.1 ----- Right ICA: 90.8 ----- Right ECA: 48.1 ICA/CCA ratio: 1.7 RIGHT: End Diastole cm/sec ----- Right CCA: 18.2 ----- Right ICA: 39.1 ----- Right ECA: 6.1 LEFT: Peak Systolic Velocity (PSV) cm/sec ----- Left CCA: 57.4 ----- Left ICA: 91.9 ----- Left ECA: 42.4 ICA/CCA ratio: 1.6 LEFT: End Diastole cm/sec ----- Left CCA: 18.9 ----- Left ICA: 40.2 ----- Left ECA: 10.4 VERTEBRALS (direction of flow): Right Vertebral: Antegrade Left Vertebral: Antegrade Rhythm: Normal RESEARCH DIRECTOR NOTES: No significant stenosis seen IMPRESSION: No hemodynamically significant internal carotid artery stenosis on either side. Criteria for Assigning % of Stenosis / Diameter reduction (Estimation based on the indirect measurements of the internal carotid artery velocities (ICA PSV). 1. Normal (no stenosis)=ICA PSV < 125 cm/s: ratio < 2.0: ICA EDV<40 cm/s. 2. Less than 50% stenosis=ICA PSV < 125 cm/s: ratio < 2.0: ICA EDV<40 cm/s. 3. 50 to 69% stenosis=ICA PSV of 125 to 230 cm/s: ration 2.0 ? 4.0: ICA EDV 40-100 cm/s. 4. Greater than 70% stenosis to near occlusion= ICA PSV > 230 cm/s: ratio > 4.0: ICA EDV > 100 cm/s. 5. Near occlusion= ICA PSV velocities may be low or undetectable: variable ratio and ICA EDV. 6. Total occlusion=unable to detect flow.
--- NOTE | 2024-08-02 10:42 | CA ---
Transthoracic Echo Report Name: Christiana Spears Age: 68 Gender: F : 1955 Exam Date: 08/01/2024 13:48 Exam Location: [facility] Ht (in): 65 Wt (lb): 120 Ordering Physician: Lucio Gutierrez MD Attending/Referring Phys: Lucio Gutierrez MD [employer] Furnace Operator Lolita Meneses RDCS Procedure CPT: Indications: I35.1 VALVE INSUF Cardiac Hx: Technical Quality: Fair Contrast 1: Total Dose (mL): Contrast 2: Total Dose (mL): MEASUREMENTS (Male / Female) Normal Values 2D ECHO LV Diastolic Diameter PLAX 3.3 cm 4.2 - 5.9 / 3.9 - 5.3 cm LV Systolic Diameter PLAX 2.0 cm IVS Diastolic Thickness 1.1 cm 0.6 - 1.0 / 0.6 - 0.9 cm LVPW Diastolic Thickness 1.3 cm 0.6 - 1.0 / 0.6 - 0.9 cm LV Relative Wall Thickness 0.7 RV Internal Dim ED PLAX 2.7 cm LA Volume 38.1 cm??? 18 - 58 / 22 - 52 cm??? LA Volume Index 24.1 cm???/m??? 16 - 28 cm???/m??? M-MODE Aortic Root Diameter MM 2.3 cm LA Systolic Diameter MM 4.0 cm LA Ao Ratio MM 1.7 AV Cusp Separation MM 1.9 cm DOPPLER AV Peak Velocity 105.7 cm/s AV Peak Gradient 4.5 mmHg AV Mean Velocity 69.3 cm/s AV Mean Gradient 2.1 mmHg AV Velocity Time Integral 19.3 cm LVOT Peak Velocity 98.4 cm/s LVOT Peak Gradient 3.9 mmHg LVOT Velocity Time Integral 19.6 cm MV Area PHT 2.5 cm??? Mitral E Point Velocity 60.3 cm/s Mitral A Point Velocity 71.5 cm/s Mitral E to A Ratio 0.8 MV Deceleration Time 302.8 ms MV E' Velocity 7.3 cm/s Mitral E to MV E' Ratio 8.2 TR Peak Velocity 217.9 cm/s TR Peak Gradient 19.0 mmHg Right Ventricular Systolic Press 24.0 mmHg FINDINGS Left Ventricle Mildly increased left ventricular wall thickness. Normal left ventricular systolic function with no obvious regional wall motion abnormalities. Left ventricular cavity size normal. Grade 1 diastolic dysfunction. Left ventricular ejection fraction is estimated at 55 %. Right Ventricle Normal right ventricular size and function. Right Atrium Normal right atrial size. Left Atrium Normal left atrial size. Mitral Valve Structurally normal mitral valve. Mild mitral annular calcification. Mitral valve thickened. Mild mitral regurgitation. Posteriorly directed mitral regurgitation jet. Aortic Valve Trileaflet aortic valve. No aortic valve stenosis or regurgitation. Tricuspid Valve Structurally normal tricuspid valve. Mild tricuspid regurgitation. Pulmonic Valve Structurally normal pulmonic valve. Pericardium No pericardial effusion. Aorta Normal size aortic root and proximal ascending aorta. CONCLUSIONS LV size and systolic function is normal. There is mild diastolic dysfunction. There is mitral annular calcification and aortic valve sclerosis without restriction. There is mild mitral and tricuspid regurgitation. No significant pulmonary hypertension. No pericardial effusion Previewed by: Dr. Diana Escobar MD (Electronically Signed) Final Date: 02 August 2024 10:41
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
== END | disposition home or self-care (01) ==
LOC: RADECHMAIN 14:16
PROVIDERS: ATTEND Internal Medicine
DX: I65.23 Occlusion and stenosis of bilateral carotid arteries (principal); I35.1 Nonrheumatic aortic (valve) insufficiency; M85.651 Other cyst of bone, right thigh
CPT/HCPCS: 77080; 93306; 93880

== ENCOUNTER 2024-08-15 08:24 | Emergency (ER) | payer BC ==
[2024-08-15] MEDS: LIDOCAINE 4% PATCH TOPICAL ONE (09:12)
[2024-08-15] MEDS: methocarbamoL 500 MG TAB PO STA (09:14)
[2024-08-15] MEDS: HYDROmorphone 0.5 MG/0.5 ML SYRINGE IM STA ×2 (09:15→11:09)
[2024-08-15] MEDS: KETOROLAC 15 MG/ML 1 ML VIAL IM STA (09:16)
[2024-08-15 09:20] VITALS: RESP 16; TEMP 98
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
--- NOTE | 2024-08-15 10:14 | XR ---
EXAMINATION TYPE: XR lumbar spine 2 or 3V DATE OF EXAM: 08/15/2024 CLINICAL HISTORY: pain TECHNIQUE: Three views of the lumbar spine are submitted. COMPARISON: None. FINDINGS: There are 5 lumbar type vertebral bodies identified. The lumbar spine shows satisfactory alignment w ithout evidence of acute fracture or dislocation. Vertebral body heights are within normal limits. Mild disc space narrowing with endplate sclerosis at L4-L5 and L5-S1. The overlying soft tissue appe ars unremarkable. IMPRESSION: 1. No acute fracture or dislocation is seen in the lumbar spine. 2. Mild degenerative disc disease. [facility], , 08/15/2024 10:12 AM
--- NOTE | 2024-08-15 10:16 | XR ---
EXAMINATION TYPE: XR Hip Complete RT DATE OF EXAM: 08/15/2024 10:11 AM INDICATION: Patient age:Female; 68 years old; Reason for study: Pain; PHH. COMPARISON: Right hip radiograph 10/04/2010 TECHNIQUE: The right hip was examined in the frontal and lateral projections . FINDINGS: No evidence of any acute osseous pathology, joint dislocation, or soft tissue swelling. Mil d medial joint space narrowing with marginal spurring of the right hip. IMPRESSION: 1. No acute osseous pathology. 2. Mild osteoarthritic change of the right hip. [facility], , 08/15/2024 10:13 AM
[2024-08-15 11:14] VITALS: BP 111/72; PULSE 69
== END 2024-08-15 11:33 | disposition home or self-care (01) ==
LOC: EC 08:24
CPT/HCPCS: 72100; 73502; 96372; 99283

== ENCOUNTER → 2024-08-18 | Outpatient (CLI) | payer BC ==
--- NOTE | 2024-08-18 13:56 | CT ---
EXAMINATION TYPE: CT lumbar spine wo con DATE OF EXAM: 08/18/2024 1:47 PM COMPARISON: None HISTORY: right hip and back pain no injury CT DLP: 631 mGycm Automated exposure control for dose reduction was used. Unenhanced CT of the lumbar spine was performed. Bone and soft tissue window settings are submitted as well as coronal and sagittal reconstructions. Findings: The lumbar vertebral segments are normal in height and alignment and there is no fracture or subluxat ion. There is minimal degenerative disease at the L5-S1 level where there is minimal vacuum phenomena and spondylosis. There is no large disc herniation. Secondary to facet hypertrophy there is minimal spinal stenosis at the L3-4 level. There is no bony neural foraminal stenosis. There is minimal facet arthropathy in the lower lumbar spine. The visualized sacrum and SI joints are normal. IMPRESSION: 1. Mild degenerative changes as described above. 2. No large lumbar disc herniation. 3. Minimal spinal stenosis at the L3-4 level [facility], Workstation: [id number] 08/18/2024 1:53 PM
--- NOTE | 2024-08-18 13:58 | CT ---
EXAMINATION TYPE: CT hip RT wo con DATE OF EXAM: 08/18/2024 COMPARISON: None HISTORY: right hip and back pain no injury CT DLP: 631 mGycm Automated exposure control for dose reduction was used. FINDINGS: There is no fracture, dislocation, intra-articular or intraosseous abnormality of the right hip or he mipelvis. There is partial fusion of the right SI joint. IMPRESSION: 1. NO ABNORMALITY OF THE RIGHT HIP. 2. PARTIAL FUSION OF THE RIGHT SI JOINT [facility], , 08/18/2024 1:55 PM
== END | disposition home or self-care (01) ==
LOC: RADCTMAIN 13:10
PROVIDERS: ATTEND Internal Medicine
DX: M25.551 Pain in right hip
CPT/HCPCS: 72131

== ENCOUNTER → 2025-02-08 | Outpatient (CLI) | payer BC ==
[2025-02-08 09:39] LABS: Appearance,Urine Clear (Clear); Bilirubin,Urine Negative (Negative); Blood,Urine Negative (Negative); Color,Urine Colorless; Glucose,Urine (UA) Negative (Negative); Ketones,Urine Negative (Negative); Leukocyte Esterase,Urine Negative (Negative); Nitrite,Urine Negative (Negative); PH, Urine 6.5 (5.0-8.0); Protein,Urine Negative (Negative); Specific Gravity,Urine 1.007 (1.001-1.035); Urobilinogen,Urine <2.0 mg/dL (<2.0)
[2025-02-08 14:50] LABS: Basophils # (A) 0.08 X 10*3/uL (0.00-0.10); Basophils % (A) 1.1 %; Eosinophils # (A) 0.11 X 10*3/uL (0.04-0.35); Eosinophils % (A) 1.5 %; Lymphocytes # (A) 1.57 X 10*3/uL (0.90-5.00); MCH 29.1 pg (27.0-32.0); MCHC 31.7 g/dL (32.0-37.0); MCV 91.9 FL (80.0-97.0); Mean Platelet Volume 9.7 FL (9.5-12.2); Monocytes # (A) 0.95 X 10*3/uL (0.20-1.00); Monocytes % (A) 12.7 %; NRBC Per 100 WBC 0 X 10*3/uL (0.00-0.01); Neutrophils # (A) 4.74 X 10*3/uL (1.80-7.70); Neutrophils % (A) 63.2 %; Platelet Count 410 X 10*3/uL (140-440); RBC 4.46 X 10*6/uL (4.10-5.20); RDW 13.3 % (11.5-14.5); WBC 7.49 X 10*3/uL (4.50-10.00)
[2025-02-08 15:54] LABS: NT-Pro-B-Type Natriuretic Pept <36 pg/mL (0-125)
[2025-02-08 16:10] LABS: ALT 13 U/L (8-44); AST 16 U/L (13-35); Albumin 4.2 g/dL (3.8-4.9); Albumin/Globulin Ratio 1.75 Ratio (1.60-3.17); Alkaline Phosphatase 108 U/L (41-126); Blood Urea Nitrogen 12.6 mg/dL (9.0-27.0); Calcium 9.7 mg/dL (8.7-10.3); Carbon Dioxide 25.1 mmol/L (21.6-31.8); Chloride 104 mmol/L (96-109); Globulin 2.4 g/dL (1.6-3.3); Glucose 92 mg/dL (70-110); LDL Cholesterol,Calculated 92.3 mg/dL (0.0-131.0); Magnesium 1.8 mg/dL (1.5-2.4); Potassium 4.1 mmol/L (3.5-5.5); Sodium 142 mmol/L (135-145); Total Bilirubin 0.3 mg/dL (0.3-1.2); Total Protein 6.6 g/dL (6.2-8.2); VLDL Calculation 18.98 mg/dL (5.00-40.00)
== END | disposition home or self-care (01) ==
LOC: LABWHC1 08:38
PROVIDERS: ATTEND Internal Medicine
DX: I35.1 Nonrheumatic aortic (valve) insufficiency (principal); K21.9 Gastro-esophageal reflux disease without esophagitis; M85.851 Other specified disorders of bone density and structure, right thigh; E03.9 Hypothyroidism, unspecified; R35.0 Frequency of micturition
CPT/HCPCS: 36415; 80053; 80061; 81003; 82306; 82533; 83036; 83735; 83880; 84443; 85025